=== PATIENT | male | born 1955 | race Caucasian/White ===

== ENCOUNTER 2018-12-28 07:59 | Outpatient (CLI) | payer MEDICARE, MEDICAID ==
[~2018-12-28 07:59] MED LIST: Regadenoson 0.4 MG/5 ML SYRINGE ONE
--- NOTE | 2018-12-28 12:55 | NM ---
NUCLEAR MEDICINE CARDIAC STRESS: HISTORY: Preoperative exam. Obesity. Clearance for weight loss surgery. Shortness of breath. TECHNIQUE: Stress only imaging was performed. The patient was administered 30.70 millicuries of technetium 99m sestamibi intravenously. FINDINGS: Homogeneous distribution of the radiotracer. End-diastolic volume is 125 mL. End-systolic volume is 63 mL. CARDIAC GATING: There is mild global hypokinesis with an EF of 49%. IMPRESSION: 1. Mild global hypokinesis with a 49% ejection fraction. 2. Homogeneous distribution of radiotracer in the left ventricle. POS: KRISTY
== END 2018-12-28 08:00 | disposition home or self-care (01) ==
LOC: NM 07:59
PROVIDERS: ATTEND Internal Medicine Cardiovascular Disease
DX: I50.810 Right heart failure, unspecified (principal); R06.02 Shortness of breath; E66.9 Obesity, unspecified; G47.30 Sleep apnea, unspecified
CPT/HCPCS: 78452; 93017; A9500; J2785

== ENCOUNTER 2019-01-14 19:30 | Outpatient (CLI) | payer MEDICARE, MEDICAID | END 2019-01-14 19:31 | disposition home or self-care (01) | LOC: SLEEPLAB 19:30 | PROVIDERS: ATTEND Internal Medicine Pulmonary Disease | DX: G47.33 Obstructive sleep apnea (adult) (pediatric) (principal); Z51.81 Encounter for therapeutic drug level monitoring; G47.10 Hypersomnia, unspecified; J44.9 Chronic obstructive pulmonary disease, unspecified; I48.2 Chronic atrial fibrillation; I11.0 Hypertensive heart disease with heart failure; I50.9 Heart failure, unspecified; R06.83 Snoring; G47.00 Insomnia, unspecified; I48.91 Unspecified atrial fibrillation; E66.9 Obesity, unspecified; Z79.01 Long term (current) use of anticoagulants; Z68.43 Body mass index [BMI] 50.0-59.9, adult | CPT/HCPCS: 95811 ==

== ENCOUNTER 2019-01-28 09:22 | Day surgery (SDC) | payer MEDICARE, MEDICAID ==
[2019-01-27 12:17] VITALS: BMI 61.0
[2019-01-28] MEDS ORDERED: PROPOFOL 200 MG/20 ML VIAL ONE (10:42)
[2019-01-28] MEDS ORDERED: Lidocaine 1% PF 5 ML VIAL ONE (10:42)
[2019-01-28] MEDS ORDERED: PHENYLEPHRINE-NS 100 MCG/ML 10 ML SYRINGE ONE (10:42)
--- NOTE | 2019-01-28 13:05 | OP ---
DATE OF PROCEDURE: 01/28/2019 SENIOR STAFF SPECIALIZED EMPLOYMENT SURGEON: None. PROCEDURE PERFORMED: Colonoscopy, screening. INDICATION: A 63-year-old man, here for first average risk screening colonoscopy. MEDICATIONS: See Anesthesia record. FINDINGS: After discussion of the risks, benefits, and alternatives of the procedure, informed consent was obtained and witnessed. Pre-endoscopic cardiopulmonary examination was satisfactory. Time-out was performed before sedation was achieved. Sedation was achieved with Anesthesia assistance in the endoscopy unit. Digital rectal exam was performed, which was unremarkable. A Pentax adult colonoscope was inserted into the anus and passed forward to the cecum in the usual fashion. The cecal base was identified by the appendiceal orifice as well as the ileocecal valve. The terminal ileum was not intubated. The colonoscope was then slowly withdrawn in a gradual and circumferential manner with careful examination of the entire colonic mucosa. The quality of the prep was good. The colonic mucosa appeared normal throughout. There were no polyps, mass, or lesions noted. No other mucosal abnormalities. Retroflexion in the rectum demonstrated internal hemorrhoids with hypertrophied anal papillae. The colonoscope was completely withdrawn and the patient allowed to recover. The patient tolerated the procedure well. There were no immediate postprocedure complications. IMPRESSION: 1. Internal hemorrhoids. 2. Otherwise, normal colonoscopy to the cecum. RECOMMENDATION: Repeat colonoscopy for screening in 10 years. Job ID: [id number]
== END 2019-01-28 12:40 | disposition home or self-care (01) ==
LOC: SDC 09:22
PROVIDERS: ATTEND Internal Medicine
PROC: 0DJD8ZZ Inspection of Lower Intestinal Tract, Via Natural or Artificial Opening Endoscopic (ICD-10-PCS; principal; 2019-01-28)
DX: Z12.11 Encounter for screening for malignant neoplasm of colon (principal); K64.8 Other hemorrhoids; K62.89 Other specified diseases of anus and rectum; I11.0 Hypertensive heart disease with heart failure; I50.9 Heart failure, unspecified; I48.91 Unspecified atrial fibrillation; J43.9 Emphysema, unspecified; E66.9 Obesity, unspecified; Z68.44 Body mass index [BMI] 60.0-69.9, adult; Z79.01 Long term (current) use of anticoagulants; Z79.899 Other long term (current) drug therapy

== ENCOUNTER 2020-07-21 08:24 | Outpatient (CLI) | payer MEDICARE, MEDICAID | END 2020-07-21 08:25 | disposition home or self-care (01) | LOC: DTY/OP 08:24 | PROVIDERS: ATTEND Surgery | DX: E66.01 Morbid (severe) obesity due to excess calories (principal) | CPT/HCPCS: 97802 ==

== ENCOUNTER 2020-09-15 16:37 | Inpatient (IN) | payer MEDICARE, MEDICAID ==
[2020-09-15] MEDS ORDERED: Morphine 4 MG/ML VIAL ONE (18:00)
[2020-09-15] MEDS ORDERED: Ondansetron PF 4 MG/2 ML Vial ONE (18:00)
[2020-09-15] MEDS ORDERED: Piperacillin/Tazobactam 4.5 GM VIAL ONE (18:00)
[2020-09-15 18:01] LABS: #Basophils 0.1 thou/uL (0.0-0.2); #Eosinphils 0.3 thou/uL (0.0-0.7); #Lymphocytes 2.8 thou/uL (1.20-3.40); #Monocytes 1.1 thou/uL (0.11-0.59); #Neutrophils 8.6 thou/uL (1.40-6.50); %Basophils 0.7 % (0.0-1.0); %Eosinophils 2.4 % (0.0-10.0); %Lymphocytes 21.9 % (21.0-51.0); %Monocytes 8.6 % (0.0-10.0); %Neutrophils 66.4 % (42.0-75.0); Mean Corpuscular HGB CONC 32.1 g/dL (32.0-36.0); Mean Corpuscular Hemoglobin 28.8 pg (27.0-31.0); Mean Corpuscular Volume 89.8 fL (78.0-98.0); Mean Platelet Volume 7.4 fL (7.4-10.4); Platelet Count 202 thou/uL (130-400); RBC Distribution Width 13.5 % (11.5-14.5); Red Blood Cell (RBC) Count 5.55 mill/uL (4.70-6.10)
[2020-09-15 18:09] LABS: INR-International Normal Ratio 3.6; Prothrombin Time 36.6 sec (12.0-14.7)
[2020-09-15 18:10] LABS: PTT 67.5 sec (22.9-36.1)
--- NOTE | 2020-09-15 18:16 | ULT ---
EXAM: US Gallbladder RUQ CLINICAL HISTORY: Pain.. COMPARISON: None. Correlation: Abdomen and pelvic CT 09/13/2020 FINDINGS: Limited evaluation due to body habitus. Pancreas: Obscured by bowel gas Liver:Limited evaluation of the liver. Increased echogenicity likely due to technical limitations. No evidence of hepatic steatosis on 6 CT Right hepatic lobe: 22.7 cm Gallbladder: Cannot be assessed Cuello's sign:Cannot be assessed Portal Vein: Patent. Appropriate directional flow Bile ducts: Common bile duct cannot be assessed Right kidney: Limited evaluation. Grossly no hydronephrosis. IMPRESSION: Limited evaluation due to body habitus. Hepatomegaly.
[2020-09-15 18:25] LABS: ALT (SGPT) 114 U/L (8-55); AST (SGOT) 67 U/L (5-34); Albumin 4.1 g/dL (3.4-4.8); Alkaline Phosphatase 142 U/L (40-110); Anion Gap 18 mmol/L (10-20); BUN (Urea Nitrogen) 14 mg/dL (8.4-25.7); Bilirubin, Total 3.5 mg/dL (0.2-1.2); CK (CPK) 402 U/L (30-200); Calc. Creatinine Clearance 0 mL/min (70-130); Calcium 8.8 mg/dL (7.8-10.44); Carbon Dioxide 26 mmol/L (23-31); Chloride 98 mmol/L (98-107); Globulin 4.1 g/dL (2.4-3.5); Glucose 84 mg/dL (80-115); Lipase 10 U/L (8-78); Potassium 3.4 mmol/L (3.5-5.1); Protein, Total 8.2 g/dL (5.8-8.1); Sodium 139 mmol/L (136-145)
[2020-09-15] MEDS ORDERED: Metoprolol Tartrate 25 MG TAB ONE (22:39)
--- NOTE | 2020-09-16 01:50 | HP ---
PRIMARY CARE PROVIDER: Erik Sotelo MD CHIEF COMPLAINT: Right upper quadrant abdominal pain. HISTORY OF PRESENT ILLNESS: This is a 65-year-old male, who presents to [facility] and transferred from [place] [facility], where the patient had initially presented on 09/13/2020, for increasing right upper quadrant abdominal pain with associated nausea and vomiting. The patient states these symptoms began somewhat abruptly after eating a large Fajita meal, presenting to the emergency room, undergoing CT of the abdomen and pelvis showing evidence of likely cholecystitis. The patient received supportive management including fentanyl, promethazine, Reglan, intravenous normal saline, Benadryl, and Zofran during the ER evaluation, 09/13/2020. The patient symptomatically improved with the above-mentioned medications, however, was recommended for higher level of care and further evaluation regarding his gallbladder. The patient apparently left against medical advice from the emergency room visit, 09/13/2020. The patient returned on 09/15/2020 with persistent abdominal discomfort and at which point, the patient underwent abdominal ultrasound with equivocal findings. Currently, the patient received IV Zosyn, Zofran, morphine sulfate, and intravenous normal saline, and referred to the Hospitalist Service for admission. PAST MEDICAL HISTORY: 1. Chronic atrial fibrillation, on chronic anticoagulation with Coumadin approximately 10 years. 2. Anxiety/depression. 3. Chronic back pain. 4. Morbid obesity. 5. Osteoarthritis. 6. Congestive heart failure. 7. Hypertension. 8. Obstructive sleep apnea. PAST SURGICAL HISTORY: Reviewed and negative. CURRENT MEDICATIONS: 1. Coumadin 2.5 mg p.o. daily. 2. Lopressor 25 mg p.o. daily. ALLERGIES: NO KNOWN DRUG ALLERGIES. FAMILY HISTORY: Positive for hypertension and coronary artery disease. SOCIAL HISTORY: Resides in [place], [place]. Disabled. Remote cocaine use, none currently. No alcohol. Occasional cigar. REVIEW OF SYSTEMS: CONSTITUTIONAL: Negative for weight loss or gain, ability to conduct usual activities. SKIN: Negative for rash, itching. EYES: Negative for double vision, pain. ENT/MOUTH: Negative for nose bleeding, neck stiffness, pain, tenderness. CARDIOVASCULAR: Negative for palpitations, dyspnea on exertion, orthopnea. RESPIRATORY: Negative for shortness of breath, wheezing, cough, hemoptysis, fever or night sweats. GASTROINTESTINAL: Negative for poor appetite, abdominal pain, heartburn, nausea, vomiting, constipation, or diarrhea. GENITOURINARY: Negative for urgency, frequency, dysuria, nocturia. MUSCULOSKELETAL: Negative for pain, swelling. NEUROLOGIC/PSYCHIATRIC: Negative for anxiety, depression. ALLERGY/IMMUNOLOGIC: Negative for skin rash, bleeding tendency. Otherwise negative except as stated per HPI. PHYSICAL EXAMINATION: VITAL SIGNS: On admission, blood pressure 110/49, pulse 69, respiratory rate 21, temperature 97.4 degrees Fahrenheit, O2 saturation 94% on room air. GENERAL APPEARANCE: This is a 65-year-old male, alert and oriented x3, pleasant, responsive, in no acute distress. HEENT: Pupils are equal, round, reactive to light and accommodation. Extraocular muscles are intact. No scleral icterus. No conjunctival injection. Nares are patent. OP is clear. Teeth in good repair. NECK: Supple. No cervical adenopathy. No thyromegaly. No carotid bruits. No JVD appreciated. Cervical spine with full active and passive range of motion. No meningeal signs noted. CHEST: Lungs are clear to auscultation bilaterally. CARDIOVASCULAR EXAM: S1, S2 with irregular rate and rhythm. No murmur, rub, or gallop appreciated. Heart sounds distant. ABDOMEN: Obese with mild tenderness to palpation in the right upper quadrant. No rebound or guarding noted. Bowel sounds are positive in all 4 quadrants. No palpable mass. EXTREMITIES: Warm and dry with fair turgor. Mild edema bilaterally without asymmetry. Pulses palpable distally at the dorsalis pedis, posterior tibial, and popliteal arteries bilaterally. Capillary refill less than 2 seconds. NEUROLOGIC: Cranial nerves 2 through 12 are grossly intact. No focal or lateralizing signs appreciated. PERTINENT LABORATORY AND X-RAY FINDINGS: Sodium 139, potassium 3.4, chloride 98, CO2 of 26, BUN 14, creatinine 0.83, glucose 84, lactic acid level 1.2, calcium 8.8, total bilirubin 3.5, AST 67, ALT of 114, alkaline phosphatase 142, total CK of 402. Troponin I negative x1. Albumin 4.1, lipase 10. CBC showed a white cell count of 13,000, hemoglobin 16, hematocrit 50, platelet count 202, PT 36.6, INR 3.6, PTT 67.5. CT of the abdomen and pelvis dated 09/14/2020 showed mildly distended gallbladder. No radiopaque gallstones noted. Mild mural thickening. Abdominal ultrasound dated 09/15/2020, showed limited exam due to body habitus. EKG dated 09/15/2020, by my interpretation shows atrial fibrillation with rapid ventricular response with heart rates in the 115s. Nonspecific ST-T wave changes noted. ASSESSMENT AND PLAN: 1. Acute cholecystitis. The patient will be admitted to the telemetry unit. Continue Zosyn 3.375 g IV q.6 hours. Pain control with morphine sulfate 2 mg IV q.4 hours p.r.n. Consult General Surgery Service in the a.m. for any further recommendations. Obtain HIDA scan imaging in the a.m. Repeat LFTs in the a.m. 2. Hyperbilirubinemia with transaminitis secondarily to #1. See #1 above for management. Repeat LFTs and total bilirubin in the a.m. 3. Atrial fibrillation with rapid ventricular response. Mild tachycardia noted on telemetry monitoring. Resume home metoprolol and continue telemetry monitoring. May need additional titration of his rate control therapy on an ongoing basis. 4. Chronic anticoagulation. INR 3.6 currently. Hold Coumadin and repeat INR in the a.m. 5. Prophylaxis. SCDs while in bed. Pepcid 20 mg b.i.d. 6. Code status is full. Surrogate medical decision maker is patient's sister. Job ID: [id number]
[2020-09-16] MEDS ORDERED: Ondansetron ODT 4 MG TAB PO PRN (03:26)
[2020-09-16] MEDS ORDERED: Ondansetron PF 4 MG/2 ML Vial IVP PRN (03:26)
[2020-09-16] MEDS ORDERED: Metoprolol Tartrate 5 MG/5 ML VIAL IVP PRN (03:26)
[2020-09-16] MEDS ORDERED: hydrALAZINE 20 MG/ML VIAL SLOW IVP PRN (03:26)
[2020-09-16] MEDS ORDERED: Piperacillin/Tazobactam 3.375 GM VIAL ONE ×3 (03:33→17:49)
[2020-09-16] MEDS ORDERED: Acetaminophen 500 MG TAB ONE (03:33)
[2020-09-16] MEDS: Sodium Chloride 0.9% 1,000 ML IV SCH ×3 (04:00→21:40)
[2020-09-16] MEDS: Piperacillin/Tazobactam 3.375 GM in Sodium Chloride 0.9% 100 ML IVPB SCH ×4 (04:00→21:41)
[2020-09-16 05:02] LABS: #Eosinphils 0.4 thou/uL (0.0-0.7); #Lymphocytes 2.7 thou/uL (1.20-3.40); #Neutrophils 6.5 thou/uL (1.40-6.50); %Basophils 0.3 % (0.0-1.0); %Eosinophils 3.4 % (0.0-10.0); %Lymphocytes 25.2 % (21.0-51.0); %Monocytes 9.6 % (0.0-10.0); %Neutrophils 61.5 % (42.0-75.0); Hemoglobin 13.8 g/dL (14.0-18.0); Mean Corpuscular Hemoglobin 29.5 pg (27.0-31.0); Mean Corpuscular Volume 92.2 fL (78.0-98.0); Mean Platelet Volume 8.9 fL (7.4-10.4); Platelet Count 177 thou/uL (130-400); RBC Distribution Width 13.7 % (11.5-14.5); Red Blood Cell (RBC) Count 4.67 mill/uL (4.70-6.10); White Blood Cell (WBC) Count 10.5 thou/uL (4.8-10.8)
[2020-09-16 06:15] LABS: INR-International Normal Ratio 5.2
[2020-09-16 06:30] LABS: Albumin 3.2 g/dL (3.4-4.8)
[2020-09-16 06:31] LABS: Chloride 103 mmol/L (98-107); Potassium 3.8 mmol/L (3.5-5.1); Sodium 138 mmol/L (136-145)
[2020-09-16 06:32] LABS: Calcium 7.8 mg/dL (7.8-10.44); Glucose 79 mg/dL (80-115)
[2020-09-16 06:33] LABS: Globulin 3.2 g/dL (2.4-3.5); Protein, Total 6.4 g/dL (5.8-8.1)
[2020-09-16 06:34] LABS: Anion Gap 17 mmol/L (10-20); Bilirubin, Total 3.2 mg/dL (0.2-1.2); Carbon Dioxide 22 mmol/L (23-31)
[2020-09-16 06:35] LABS: Alkaline Phosphatase 111 U/L (40-110)
[2020-09-16 06:36] LABS: Calc. Creatinine Clearance 0 mL/min (70-130)
[2020-09-16 06:37] LABS: AST (SGOT) 51 U/L (5-34); BUN (Urea Nitrogen) 12 mg/dL (8.4-25.7)
[2020-09-16 06:38] LABS: ALT (SGPT) 80 U/L (8-55)
[2020-09-16 06:41] LABS: SARS-CoV-2 MS2 Positive; SARS-CoV-2 N Gene Negative; SARS-CoV-2 S Gene Negative; SARS-CoV-2 by NAA Not Detected (NotDetected); SARS-CoV-2 orf1ab Negative
[2020-09-16] MEDS ORDERED: Phytonadione 10 MG/ML AMP IM SCH (06:45)
[2020-09-16] MEDS ORDERED: Phytonadione 10 MG/ML AMP ONE (06:58)
[2020-09-16] MEDS ORDERED: Metoprolol Tartrate 25 MG TAB PO SCH (09:00)
[2020-09-16] MEDS ORDERED: Famotidine 20 MG TAB ONE (09:15)
[2020-09-16] MEDS ORDERED: Metoprolol Tartrate 25 MG TAB ONE (09:15)
[2020-09-16] MEDS: Famotidine 20 MG TAB PO SCH ×2 (09:20→20:24)
--- NOTE | 2020-09-16 12:20 | CON ---
DATE OF CONSULTATION: CHIEF COMPLAINT: Right upper quadrant abdominal pain. HISTORY OF PRESENT ILLNESS: The patient is a 65-year-old male who 5 days ago developed right upper quadrant pain associated with nausea and vomiting. He went to the emergency room in [place]. They recommended transfer to [place], but he refused due to the fact that he had no one to take care of his dogs and he went home. He says over the past few days he has had some improvement, but he continues to have this pain, now described as about 4/10. He has also had fever to 100 degrees Fahrenheit. PAST MEDICAL HISTORY: Morbid obesity, atrial fibrillation, congestive heart failure, COPD, hypertension. He is on warfarin. He has decreased hearing. He has not had surgery. ALLERGIES: HE HAS NO KNOWN DRUG ALLERGIES. MEDICATIONS: Include 1. Metoprolol. 2. Lisinopril. 3. Warfarin. 4. Symbicort inhaler. SOCIAL HISTORY: He is single, unemployed. Smokes one cigarette a month. No alcohol. FAMILY HISTORY: Cancer and heart disease. PHYSICAL EXAMINATION: VITAL SIGNS: He is afebrile. Pulse 77, O2 saturation 94%. GENERAL: He is a morbidly obese male, lying still in no apparent distress. HEENT: Unremarkable. LUNGS: Clear. HEART: Regular rate and rhythm. ABDOMEN: Soft. He is tender in the right upper quadrant. There are no palpable masses. EXTREMITIES: Unremarkable. LABORATORY DATA: His white count is 10.5, H and H are 13 and 43, platelet count 177. Electrolytes are fine. T-bilirubin is 3.2, AST of 51, ALT of 80. CT scan shows distended gallbladder, no stones, slight wall thickening. Ultrasound, they could not see anything because of his body habitus. ASSESSMENT: Possible cholecystitis, possible choledocholithiasis. PLAN: IV antibiotics. HIDA scan. GI consult. If it appears he needs intervention, would recommend a percutaneous drainage of his gallbladder. We will try and get Cardiology clearance. Job ID: [id number]
[2020-09-16] MEDS ORDERED: Morphine 2 MG/ML VIAL ONE (14:20)
[2020-09-16] MEDS ORDERED: Morphine 2 MG/ML VIAL SLOW IVP SCH (16:15)
--- NOTE | 2020-09-16 16:26 | NM ---
Exam: HIDA scan without ejection fraction HISTORY: Possible acute cholecystitis COMPARISON: None TECHNIQUE: Patient was pretreated with 3.2 mcg of CCK intravenously 30 minutes prior to radiotracer i njection. Patient was administered 4 mm of technetium 99m mebrofenin intravenously FINDINGS: There is uptake of the radiotracer by the hepatic parenchyma. There is localization of radiotracer in the intrahepatic and extrahepatic biliary system. There is passage of radiotracer from the common bile duct into small bowel loops. There is no evidence of radio tracer localization after one hour. P atient was given 2 mg of morphine intravenously. Additional 30 minutes of imaging was performed. No evidence of a trace of localization. IMPRESSION: Scintigraphic evidence of acute cholecystitis. Lack of radiotracer localization gallbladd er after morphine administration.
--- NOTE | 2020-09-16 17:06 | PDOC.HOSPP ---
- Subjective Subjective: pt was seen and examined. states pain is better with Morphine. No fever. - Objective Result Diagrams: 09/16/20 04:45 09/16/20 06:14 Additional Labs: Accuchecks 09/16/20 05:49 POC Glucose 80 Radiology Reviewed by me: Yes EKG Reviewed by me: Yes Hospitalist ROS - Medication Medications: Active Medications Generic Name Dose Route Start Last Admin Trade Name Freq PRN Reason Stop Dose Admin Famotidine 20 mg 09/16/20 09:00 09/16/20 09:20 Famotidine 20 Mg Tab PO 20 mg BID MAHSA Administration Sodium Chloride 1,000 mls @ 100 mls/hr 09/16/20 03:45 09/16/20 04:00 Normal Saline 0.9% IV 1,000 mls .Q10H MAHSA Administration Piperacillin Sod/Tazobactam 100 mls @ 200 mls/hr 09/16/20 04:00 09/16/20 10:00 Sod 3.375 gm/ Sodium Chloride IVPB 100 mls 0400,1000,1600,2200 MAHSA Administration Metoprolol Tartrate 25 mg 09/16/20 09:00 09/16/20 09:20 Metoprolol Tartrate 25 Mg Tab PO 25 mg DAILY MAHSA Administration Sodium Chloride 10 ml 09/16/20 09:00 09/16/20 09:20 Flush - Normal Saline 10 Ml Syringe IVF 10 ml Q12HR MAHSA Administration - Exam General Appearance: NAD Eye: PERRL ENT: normocephalic atraumatic Neck: supple Heart: RRR Respiratory: CTAB Gastrointestinal: soft, non-tender Extremities: no cyanosis, no clubbing, no edema Skin: normal turgor, no lesions Neurological: cranial nerve grossly intact Musculoskeletal: normal tone Psychiatric: normal affect, normal behavior, A&O x 3 Hosp A/P - Plan Patient is a 65 years old gentleman who was transferred from [facility], who presented with right upper quadrant pain. Further workup showed elevated LFTs, and HIDA scan findings consistent with acute cholecystitis. Acute Cholecystitis --cont IV abx. appreciate surgery input Elevated LFT --GI consulted for possible ERCP vs MRCP to r/o CBD stones AFib with RVR --rate better controlled. Cont beta david. Coumadin on hold Supratherapeutic INR --s/p Vit K, rpt INR in AM Morbid Obesity
[2020-09-16] MEDS ORDERED: Morphine 4 MG/ML VIAL SLOW IVP PRN (20:08)
[2020-09-16] MEDS: Metoprolol Tartrate 25 MG TAB PO SCH (21:40)
[2020-09-16] MEDS: Polyethylene Glycol 3350 17 GM Packet PO PRN (21:44)
--- NOTE | 2020-09-16 23:18 | CON ---
DATE OF CONSULTATION: 09/16/2020 CHIEF COMPLAINT: Abdominal pain. HISTORY OF PRESENT ILLNESS: Mr. Romero is a 65-year-old man, who had onset of right upper quadrant aching abdominal pain several days ago. He had a similar episode a couple of months ago. This time, the pain persisted and he went onto the emergency room in [place]. He was advised to be transferred to the acute care hospital, but he had dogs at home that he had to take care of, so he did not follow through with that transfer. He ultimately ended up coming back to the emergency room here at [facility] yesterday as the pain has continued and then intensified. He had an ultrasound performed, which showed increased echogenicity in the liver. The gallbladder and bile ducts could not be assessed due to the patient's body habitus. He is 370 pounds. He did have a nuclear medicine HIDA scan, which showed passage of the radiotracer from the bile duct into the small bowel, but the gallbladder did not fill indicating acute cholecystitis. His liver tests were elevated, so GI was consulted to consider choledocholithiasis. He has atrial fibrillation and is on warfarin and his INR was 5.2 today. He has been started on antibiotics with Zosyn and he is feeling better overall. He has had some mild constipation and had a colonoscopy by Dr. Torres neff in January 2019, which was normal. He is being evaluated for bariatric surgery. He did have a CT scan of the abdomen and pelvis on 09/13/2020, which showed gallbladder distention and some mild mural thickening of the gallbladder. The common bile duct again was not commented on. PAST MEDICAL HISTORY: Atrial fibrillation, hypertension, morbid obesity, osteoarthritis, congestive heart failure, obstructive sleep apnea, back pain, depression. PAST SURGICAL HISTORY: Colonoscopy in January 2019, which was normal. FAMILY HISTORY: Negative for GI malignancies. SOCIAL HISTORY: No alcohol, drugs, or tobacco recently. ALLERGIES: NO KNOWN DRUG ALLERGIES. CURRENT MEDICATIONS: Include: 1. Famotidine. 2. Metoprolol. 3. Dulera inhaler. 4. Zosyn. 5. MiraLAX daily. REVIEW OF SYSTEMS: Negative x10 systems reviewed except as stated in history of present illness. PHYSICAL EXAMINATION: VITAL SIGNS: Temperature is 98.3, pulse is 79, blood pressure 104/55. GENERAL: He is in no acute distress. Alert and oriented x3. HEENT: Eyes have no scleral icterus. Oropharynx is clear without lesions. No cervical or supraclavicular lymphadenopathy. He is morbidly obese. LUNGS: Clear to auscultation bilaterally. HEART: Regular rate and rhythm without murmur. ABDOMEN: Soft. Mild tenderness in right upper quadrant without guarding. Bowel sounds are present. EXTREMITIES: No lower extremity edema. NEUROLOGIC: Cranial nerves are grossly intact. LABORATORY DATA: White blood cell count 10.5, hemoglobin 13.8, platelets 177. INR is 5.2. Creatinine 0.69, bilirubin is 3.2 down from 3.5 yesterday, AST is 51, ALT 80, alkaline phosphatase 111, albumin 3.2. Lipase 10. IMPRESSION: 1. Acute cholecystitis, being treated with antibiotics. Is felt to be a poor surgical candidate by General Surgery. Consideration has been given for cholecystostomy tube. However, given his high INR, this is not an immediate option. 2. Abnormal liver test. His bile ducts could not be assessed by ultrasound that were not commented on by CT. His body habitus will not be expected to allow for MRCP. It would also be quite difficult case for ERCP given his size. For now, he is responding appropriately to antibiotics. We will follow the trend of his liver tests. In the meantime, we will await improvement of his INR. 3. Atrial fibrillation, on warfarin. Supratherapeutic INR. He has received vitamin K. 4. Morbid obesity. RECOMMENDATIONS: 1. Continue Zosyn. 2. We will follow the trend of his LFTs. Job ID: [id number]
[2020-09-17] MEDS: Piperacillin/Tazobactam 3.375 GM in Sodium Chloride 0.9% 100 ML IVPB SCH ×4 (04:10→21:34)
[2020-09-17 04:54] LABS: #Eosinphils 0.4 thou/uL (0.0-0.7); #Monocytes 0.7 thou/uL (0.11-0.59); #Neutrophils 5.4 thou/uL (1.40-6.50); %Basophils 0.3 % (0.0-1.0); %Eosinophils 4.6 % (0.0-10.0); %Lymphocytes 23.1 % (21.0-51.0); %Monocytes 7.9 % (0.0-10.0); %Neutrophils 64.1 % (42.0-75.0); Mean Corpuscular HGB CONC 31.3 g/dL (32.0-36.0); Mean Corpuscular Hemoglobin 28.8 pg (27.0-31.0); Mean Corpuscular Volume 92.2 fL (78.0-98.0); Mean Platelet Volume 7.2 fL (7.4-10.4); Platelet Count 169 thou/uL (130-400); RBC Distribution Width 13.6 % (11.5-14.5); Red Blood Cell (RBC) Count 4.86 mill/uL (4.70-6.10); White Blood Cell (WBC) Count 8.4 thou/uL (4.8-10.8)
[2020-09-17 05:01] LABS: INR-International Normal Ratio 2.7; Prothrombin Time 29.6 sec (12.0-14.7)
[2020-09-17 05:21] LABS: ALT (SGPT) 81 U/L (8-55); AST (SGOT) 56 U/L (5-34); Albumin 3.3 g/dL (3.4-4.8); Alkaline Phosphatase 114 U/L (40-110); Anion Gap 15 mmol/L (10-20); BUN (Urea Nitrogen) 7 mg/dL (8.4-25.7); Bilirubin, Total 2.8 mg/dL (0.2-1.2); Calc. Creatinine Clearance 272 mL/min (70-130); Calcium 7.7 mg/dL (7.8-10.44); Carbon Dioxide 25 mmol/L (23-31); Chloride 102 mmol/L (98-107); Globulin 3.2 g/dL (2.4-3.5); Glucose 97 mg/dL (80-115); Potassium 3.6 mmol/L (3.5-5.1); Protein, Total 6.5 g/dL (5.8-8.1); Sodium 138 mmol/L (136-145)
--- NOTE | 2020-09-17 09:21 | PRG ---
DATE OF SERVICE: 09/17/2020 SUBJECTIVE: The patient reports that he feels a little less pain. He is hungry. No nausea or vomiting. OBJECTIVE: VITAL SIGNS: On examination, his temperature is 98.2, pulse 89, and blood pressure 165/94. GENERAL: He is awake, alert, sitting up, about to eat, I told him not to eat. ABDOMEN: Soft, but tender in the right upper quadrant. LABORATORY DATA AND IMAGING STUDIES: He had a HIDA scan done that shows acute cholecystitis. His white count is down at 8.4, H and H 14 and 44, platelet count 169. His total bilirubin is 2.8, down from 3.2. ASSESSMENT: 1. Acute cholecystitis with multiple medical problems. 2. Bad heart. 3. Chronic obstructive pulmonary disease. 4. Morbid obesity. PLAN: Percutaneous drainage of gallbladder. Job ID: [id number]
[2020-09-17] MEDS: Famotidine 20 MG TAB PO SCH ×2 (09:46→21:37)
[2020-09-17] MEDS: Acetaminophen 500 MG TAB PO PRN (09:46)
[2020-09-17] MEDS: Metoprolol Tartrate 25 MG TAB PO SCH ×2 (09:46→21:38)
[2020-09-17] MEDS: Mometasone 200 MCG/Formoterol 5 MCG 120 PUFF INHALER INH SCH ×2 (10:29→18:40)
[2020-09-17] MEDS: HYDROcodone/Acetaminophen 5/325 mg Tablet PO PRN ×2 (11:32→19:36)
--- NOTE | 2020-09-17 16:15 | PDOC.HOSPP ---
- Subjective Subjective: Patient was seen examined at bedside. Patient reported his abdominal pain is better. Appreciate input from surgery across GI. He appeared to be responding well with IV antibiotic. He is scheduled to have cholecystectomy tube for tomorrow. His INR has trended down. - Objective Vital Signs & Weight: Vital Signs (12 hours) Temp Pulse Resp BP Pulse Ox 09/17/20 15:35 97.3 F L 83 24 H 155/90 H 96 09/17/20 10:54 97.8 F 74 20 118/73 94 L 09/17/20 09:45 95 09/17/20 07:30 98.2 F 89 16 165/94 H 95 Weight Weight 370 lb 3.2 oz I&O: 09/16/20 09/17/20 09/18/20 06:59 06:59 06:59 Intake Total 1380 Output Total 1175 Balance 205 Result Diagrams: 09/17/20 04:27 09/17/20 04:27 Hospitalist ROS - Medication Medications: Active Medications Generic Name Dose Route Start Last Admin Trade Name Freq PRN Reason Stop Dose Admin Acetaminophen 1,000 mg 09/16/20 03:26 09/17/20 09:46 Acetaminophen 500 Mg Tab PO 1,000 mg Q6H PRN Administration Mild Pain (1-3) Hydrocodone Bitart/Acetaminophen 1 tab 09/17/20 11:17 09/17/20 11:32 Hydrocodone/Acetaminophen 5/325 Mg Tablet PO 1 tab Q6H PRN Administration Moderate to Severe Pain (6-10) Famotidine 20 mg 09/16/20 09:00 09/17/20 09:46 Famotidine 20 Mg Tab PO 20 mg BID MAHSA Administration Piperacillin Sod/Tazobactam 100 mls @ 200 mls/hr 09/16/20 04:00 09/17/20 09:47 Sod 3.375 gm/ Sodium Chloride IVPB 100 mls 0400,1000,1600,2200 MAHSA Administration Sodium Chloride 1,000 mls @ 45 mls/hr 09/16/20 20:05 09/16/20 21:40 Normal Saline 0.9% IV 1,000 mls .[id number] MAHSA Administration Metoprolol Tartrate 25 mg 09/16/20 21:00 09/17/20 09:46 Metoprolol Tartrate 25 Mg Tab PO 25 mg BID MAHSA Administration Mometasone Furoate/Formoterol Fumar 2 puff 09/17/20 06:30 09/17/20 10:29 Mometasone 200 Mcg/Formoterol 5 Mcg 120 Puff Inhaler INH 2 puff BID-RT MAHSA Administration Polyethylene Glycol 17 gm 09/16/20 20:08 09/16/20 21:44 Polyethylene Glycol 3350 17 Gm Packet PO 17 gm DAILYPRN PRN Administration Constipation Sodium Chloride 10 ml 09/16/20 09:00 09/17/20 09:47 Flush - Normal Saline 10 Ml Syringe IVF Not Given Q12HR MAHSA - Exam General Appearance: NAD Eye: PERRL ENT: normocephalic atraumatic Neck: supple Heart: RRR Respiratory: CTAB Gastrointestinal: soft Extremities: no cyanosis Skin: normal turgor Neurological: cranial nerve grossly intact Musculoskeletal: normal tone Psychiatric: normal affect, normal behavior, A&O x 3 Hosp A/P - Plan Patient is a 65 years old gentleman who was transferred from [place] ER, who presented with right upper quadrant pain. Further workup showed elevated LFTs, and HIDA scan findings consistent with acute cholecystiti s. Acute Cholecystitis --responding to conservative mgt --cont IV abx. appreciate surgery input --cholectectomy tube placement tomorrow. Elevated LFT - trending down --appreciate GI input -patient is not a candidate for ERCP nor MRCP --We will continue with conservative management AFib with RVR --rate better controlled. Cont beta david. Coumadin on hold Supratherapeutic INR --s/p Vit K, rpt INR in AM Morbid Obesity --Aggressive lifestyle modification is recommended
--- NOTE | 2020-09-17 16:52 | PRG ---
DATE OF SERVICE: 09/17/2020 SUBJECTIVE: Mr. Romero had some flare of the abdominal pain this morning, then it improved later in the day. He is tolerating clear liquid diet well. OBJECTIVE: VITAL SIGNS: Temperature is 97.3, pulse 83, blood pressure 155/90. GENERAL: He is in no acute distress. Alert and oriented x3. LUNGS: Clear to auscultation bilaterally. HEART: Regular rate and rhythm without murmur. ABDOMEN: Soft, obese, tender in the right upper quadrant, but this is mild overall. Bowel sounds are present. EXTREMITIES: 2+ lower extremity edema. LABORATORY DATA: Hemoglobin is 14. INR is down to 2.7 today. Creatinine 0.66, bilirubin 2.8, AST 56, ALT 81, alkaline phosphatase 114. IMPRESSION: 1. Acute cholecystitis. HIDA scan was abnormal. Plan is to proceed with percutaneous transhepatic drainage of the gallbladder. This will likely be done tomorrow as his INR improves further. He is currently doing better with IV antibiotics. 2. Atrial fibrillation with rapid ventricular response with supratherapeutic INR. He has received vitamin K. His INR is trending down. RECOMMENDATIONS: 1. Cholecystostomy tube tomorrow. 2. If his LFTs fail to continue to improve, then cholangiogram could be performed through the cholecystostomy tube after the acute inflammation in the gallbladder improves. Job ID: [id number]
[2020-09-17] MEDS: Polyethylene Glycol 3350 17 GM Packet PO PRN (21:37)
[2020-09-18] MEDS: Sodium Chloride 0.9% 1,000 ML IV SCH (05:12)
[2020-09-18] MEDS: Piperacillin/Tazobactam 3.375 GM in Sodium Chloride 0.9% 100 ML IVPB SCH ×4 (05:12→20:21)
[2020-09-18 05:54] LABS: ALT (SGPT) 94 U/L (8-55); AST (SGOT) 76 U/L (5-34); Albumin 3.3 g/dL (3.4-4.8); Alkaline Phosphatase 129 U/L (40-110); Anion Gap 13 mmol/L (10-20); BUN (Urea Nitrogen) Less than 4 mg/dL (8.4-25.7); Bilirubin, Total 5.3 mg/dL (0.2-1.2); Calc. Creatinine Clearance 285 mL/min (70-130); Carbon Dioxide 27 mmol/L (23-31); Chloride 102 mmol/L (98-107); Globulin 3.3 g/dL (2.4-3.5); Glucose 114 mg/dL (80-115); Potassium 3.8 mmol/L (3.5-5.1); Protein, Total 6.6 g/dL (5.8-8.1); Sodium 138 mmol/L (136-145)
[2020-09-18 06:09] LABS: INR-International Normal Ratio 1.6; Prothrombin Time 18.9 sec (12.0-14.7)
[2020-09-18] MEDS: Mometasone 200 MCG/Formoterol 5 MCG 120 PUFF INHALER INH SCH ×2 (07:49→18:30)
[2020-09-18] MEDS: Famotidine 20 MG TAB PO SCH ×2 (08:24→20:20)
[2020-09-18] MEDS: Metoprolol Tartrate 25 MG TAB PO SCH ×2 (08:24→20:20)
--- NOTE | 2020-09-18 13:45 | PRG ---
DATE OF SERVICE: 09/18/2020 SUBJECTIVE: Mr. Romero is tolerating his clear liquid diet well. His pain is markedly improved. OBJECTIVE: VITAL SIGNS: Temperature 97.5, pulse 86, blood pressure 140/91. GENERAL: He is in no acute distress. Alert and oriented x3. LUNGS: Clear to auscultation bilaterally. HEART: Regular rate and rhythm without murmur. ABDOMEN: Soft. Minimal tenderness in the right upper quadrant now. Bowel sounds are Present. EXTREMITIES: 1+ lower extremity edema. LABORATORY DATA: White blood cell count 8.4, hemoglobin 14.0, platelets 169. INR is done 1.6 today. Bilirubin 5.3, AST 76, ALT 94, alkaline phosphatase 129. IMPRESSION AND PLAN: 1. Acute cholecystitis. His abdominal pain has markedly improved with antibiotics. HIDA scan showed nonfilling of the gallbladder. Plan was for cholecystostomy tube today; however, after review with Radiology, they feel that this would be an extremely difficult procedure given the patient's size and inability to properly fit in the CT scanner. The gallbladder could not be seen by ultrasound. He is an also suboptimal surgical candidate. Given his significant improvement with antibiotics at this point and difficulty being able to perform surgery or radiological intervention, current plan is to continue the antibiotics alone and reassess over the next couple of days. It might be reasonable to repeat a HIDA scan if he continues to improve clinically and if that shows filling in normal emptying of the gallbladder, then cholecystostomy in surgery potentially can be avoided. 2. Cholestatic liver tests. Concern is for choledocholithiasis. His bilirubin is noted to bump back up again today. We will follow the trend of this. If he ends up getting a cholecystostomy tube, then cholangiogram potentially be performed through that. If his bilirubin continues to climb, then he might ultimately end up requiring attempted ERCP. 3. Dr. Macdonald will cover the service starting tomorrow. Job ID: [id number]
--- NOTE | 2020-09-18 15:00 | PRG ---
DATE OF SERVICE: 09/18/2020 SUBJECTIVE: The patient says he is feeling a lot better with the antibiotics. He is really having no abdominal pain at this time. No nausea or vomiting. We attempted to drain the gallbladder percutaneously. Unfortunately, due to his size, the radiologist could not image him with ultrasound could not see the gallbladder. The other issue with the CAT scan is because of his size, there was no room to put a drain in. They could barely squeeze him in the CT scan, so he is doing better. OBJECTIVE: VITAL SIGNS: His temperature is 97.5, pulse 86, and blood pressure 140/91. ABDOMEN: Soft, but morbidly obese, nontender. LABORATORY DATA: White count is 8.5, H and H 14 and 42, platelet count 169. His electrolytes; T bilirubin is 5.3, AST is 76, ALT of 94. ASSESSMENT: Possible choledocholithiasis. Unable to place a cholangiocatheter or drain tube. PLAN: Cardiology consult as he may need surgical intervention. However, they have not seen him yet, so we will reconsult Cardiology. Job ID: [id number]
--- NOTE | 2020-09-18 15:18 | PDOC.HOSPP ---
- Subjective Subjective: Patient was seen examined at bedside. Patient stated that his pain is much improved. However, his LFTs trending up. Unfortunately, patient is high risk for surgical as well as cholecystectomy tube placement. He is currently responding to IV antibiotics. No fever. Surgery and GI are following. - Objective Vital Signs & Weight: Vital Signs (12 hours) Temp Pulse Resp BP BP Pulse Ox 09/18/20 12:00 97.5 F L 86 24 H 140/91 H 94 L 09/18/20 07:37 98 F 89 24 H 165/97 H 94 L 09/18/20 03:32 98.2 F 81 15 124/66 93 L Weight Weight 370 lb 3.2 oz I&O: 09/17/20 09/18/20 09/19/20 06:59 06:59 06:59 Intake Total 1380 1670 930 Output Total 1175 1825 1950 Balance 804 -434 -3518 Result Diagrams: 09/17/20 04:27 09/18/20 04:48 Hospitalist ROS - Medication Medications: Active Medications Generic Name Dose Route Start Last Admin Trade Name Freq PRN Reason Stop Dose Admin Acetaminophen 1,000 mg 09/16/20 03:26 09/17/20 09:46 Acetaminophen 500 Mg Tab PO 1,000 mg Q6H PRN Administration Mild Pain (1-3) Hydrocodone Bitart/Acetaminophen 1 tab 09/17/20 11:17 09/17/20 19:36 Hydrocodone/Acetaminophen 5/325 Mg Tablet PO 1 tab Q6H PRN Administration Moderate to Severe Pain (6-10) Famotidine 20 mg 09/16/20 09:00 09/18/20 08:24 Famotidine 20 Mg Tab PO 20 mg BID MAHSA Administration Piperacillin Sod/Tazobactam 100 mls @ 200 mls/hr 09/16/20 04:00 09/18/20 10:30 Sod 3.375 gm/ Sodium Chloride IVPB 100 mls 0400,1000,1600,2200 MAHSA Administration Metoprolol Tartrate 25 mg 09/16/20 21:00 09/18/20 08:24 Metoprolol Tartrate 25 Mg Tab PO 25 mg BID MAHSA Administration Mometasone Furoate/Formoterol Fumar 2 puff 09/17/20 06:30 09/18/20 07:49 Mometasone 200 Mcg/Formoterol 5 Mcg 120 Puff Inhaler INH 2 puff BID-RT MAHSA Administration Polyethylene Glycol 17 gm 09/16/20 20:08 09/17/20 21:37 Polyethylene Glycol 3350 17 Gm Packet PO 17 gm DAILYPRN PRN Administration Constipation Sodium Chloride 10 ml 09/16/20 09:00 09/18/20 08:24 Flush - Normal Saline 10 Ml Syringe IVF 10 ml Q12HR MAHSA Administration - Exam General Appearance: NAD Eye: PERRL ENT: normocephalic atraumatic Neck: supple Heart: RRR Respiratory: CTAB Gastrointestinal: soft Extremities: no cyanosis Skin: normal turgor Neurological: cranial nerve grossly intact Musculoskeletal: normal tone Psychiatric: normal affect, normal behavior, A&O x 3 Hosp A/P - Plan Patient is a 65 years old gentleman who was transferred from [facility], who presented with right upper quadrant pain. Further workup showed elevated LFTs, and HIDA scan findings consistent with acute cholecy stitis. Acute Cholecystitis --responding to IV abx. Initially plan for cholectectomy tube placement. But cancelled d/t body habitus, may not be feasible. --cont IV abx. --Cardiology consult for risk stratifications has been requested by surgery. --will obtain Echo to assess his LV function. Elevated LFT - trending upward --appreciate GI input - patient is not a candidate for ERCP nor MRCP d/t body habitus --follow CMP. GI is following. AFib with RVR --rate better controlled. Cont beta david. Coumadin on hold Supratherapeutic INR - s/p reversal with Vit K --now subtherapeutic, bridge him with Lovenox sq for possible surgery. Cont to hold Coumadin. Morbid Obesity --Aggressive lifestyle modification is recommended
[2020-09-18] MEDS: HYDROcodone/Acetaminophen 5/325 mg Tablet PO PRN ×2 (15:43→20:22)
--- NOTE | 2020-09-18 17:52 | CON ---
DATE OF CONSULTATION: REASON FOR CONSULTATION: Preop clearance. HISTORY OF PRESENT ILLNESS: Mr. Romero is a very pleasant 65-year-old gentleman, who is a patient Dr. Marlon Corral. He recently presented with cholecystitis. He denies chest pain, pressure, shortness of breath, or other associated symptoms. He does have a previous history of atrial fibrillation on anticoagulation therapy. His last echo dated 11/2019. His LVEF was 45% to 50%. He denies chest pain, pressure, changes in shortness of breath, or other associated symptoms. PAST MEDICAL HISTORY: Morbid obesity, obstructive sleep apnea, atrial fibrillation, mild cardiomyopathy, herniated cervical disk, bipolar disorder, hypertension. HOME MEDICATIONS: Include; 1. Metoprolol. 2. Coumadin. 3. . 4. Lisinopril. 5. Vitamin C. ALLERGIES: NONE. SOCIAL HISTORY: Positive caffeine use. No alcohol or tobacco use. REVIEW OF SYSTEMS: A 10-point review of systems is reviewed and as above, otherwise negative. PHYSICAL EXAMINATION: VITAL SIGNS: Blood pressure 134/78, pulse 65, temperature 98.1. General: The patient is a pleasant gentleman, in no acute distress, appears stated age. Head, Eyes, Ears, Nose and Throat: Sclerae without icterus. Mouth: Moist mucous membranes, normal palate. Neck: No jugular venous distention. Carotid upstroke is brisk. No bruits bilaterally. Lungs: Clear to auscultation. Heart: Irregularly irregular. Abdomen: Soft, nontender, nondistended. Extremities: No edema. PERTINENT LABORATORY DATA: Hemoglobin 14, hematocrit 44.8. Creatinine 0.63. INR 1.6. IMPRESSION: 1. Preop clearance. 2. Chronic atrial fibrillation. 3. Cholecystitis. RECOMMENDATIONS: Mr. Romero did have a noninvasive stress study performed in 2019 that was negative for ischemia. His LVEF was 48%. His most recent echo dated 11/2019 also showed LVEF of 45% to 50%. Given no current symptoms of angina or congestive heart failure, it would be okay from my standpoint to clear for surgery. He is felt to be low risk for complications. I recommend holding Coumadin until INR is less than 1.8. From my standpoint, it would be okay to transfer to Surgical if needed. Job ID: [id number]
[2020-09-18] MEDS: Enoxaparin Sodium 80 MG/0.8 ML SYRINGE SC SCH (20:19)
[2020-09-18] MEDS: Lisinopril 2.5 MG TAB PO SCH (20:20)
[2020-09-19 05:01] LABS: INR-International Normal Ratio 1.1; Prothrombin Time 14.7 sec (12.0-14.7)
[2020-09-19] MEDS: Piperacillin/Tazobactam 3.375 GM in Sodium Chloride 0.9% 100 ML IVPB SCH ×4 (05:52→22:51)
[2020-09-19] MEDS: Mometasone 200 MCG/Formoterol 5 MCG 120 PUFF INHALER INH SCH ×2 (07:36→19:50)
[2020-09-19 07:51] LABS: Albumin 3.5 g/dL (3.4-4.8)
[2020-09-19 07:52] LABS: Chloride 104 mmol/L (98-107); Sodium 140 mmol/L (136-145)
[2020-09-19 07:53] LABS: Calcium 8.3 mg/dL (7.8-10.44); Glucose 121 mg/dL (80-115)
[2020-09-19 07:54] LABS: Globulin 3.5 g/dL (2.4-3.5)
[2020-09-19 07:55] LABS: Anion Gap 14 mmol/L (10-20); Bilirubin, Total 2.9 mg/dL (0.2-1.2); Carbon Dioxide 26 mmol/L (23-31)
[2020-09-19 07:56] LABS: Alkaline Phosphatase 135 U/L (40-110)
[2020-09-19 07:57] LABS: Calc. Creatinine Clearance 268 mL/min (70-130)
[2020-09-19 07:58] LABS: BUN (Urea Nitrogen) Less than 4 mg/dL (8.4-25.7)
[2020-09-19 07:59] LABS: ALT (SGPT) 76 U/L (8-55); AST (SGOT) 52 U/L (5-34)
[2020-09-19] MEDS: Enoxaparin Sodium 80 MG/0.8 ML SYRINGE SC SCH (08:47)
[2020-09-19] MEDS: Metoprolol Tartrate 25 MG TAB PO SCH ×2 (08:47→22:51)
[2020-09-19] MEDS: Famotidine 20 MG TAB PO SCH ×2 (08:47→22:51)
[2020-09-19] MEDS: Acetaminophen 500 MG TAB PO PRN (08:49)
--- NOTE | 2020-09-19 13:06 | PRG ---
DATE OF SERVICE: 09/19/2020 SUBJECTIVE: The patient states he is feeling better, but he is having diarrhea, less pain. OBJECTIVE: VITAL SIGNS: On examination, temperature 97.9, pulse 84, blood pressure 139/75. GENERAL: He looks good. ABDOMEN: Soft and nondistended. Morbidly obese. LABORATORY DATA: His white count is 8.4, H and H 14 and 44, platelet count 169. His electrolytes show his bilirubin has dropped from 5 to 2.9. His LFTs are coming down. ASSESSMENT: Acute cholecystitis, morbidly obese. PLAN: He has been given cardiac clearance. We will plan on laparoscopic cholecystectomy with cholangiogram tomorrow. Job ID: [id number]
--- NOTE | 2020-09-19 14:50 | PRG ---
DATE OF SERVICE: 09/19/2020 SUBJECTIVE: Mr. Romero is feeling quite a bit better. He still has a bit of abdominal discomfort and nausea, but no vomiting. Primary complaint is loose bowel movements. He appears to have responded well to the antibiotics. He did get cardiac clearance for surgery and Dr. Rico's plan is to take him for laparoscopic cholecystectomy with intraoperative cholangiogram tomorrow. OBJECTIVE: VITAL SIGNS: Temperature 97.9, pulse 84, blood pressure 139/75, 95% oxygen saturation on room air. GENERAL: In no acute distress, walking around the room comfortably. HEART: Regular rate and rhythm. LUNGS: Clear to auscultation bilaterally. ABDOMEN: Obese, some tenderness to palpation in the upper abdomen. No guarding or rebound tenderness. EXTREMITIES: No peripheral edema. LABORATORY STUDIES: Sodium 140, potassium 4.0, BUN less than 4, creatinine 0.67, total bilirubin came down from 5.3 to 2.9, alkaline phosphatase is 135, AST came down from 76 to 52, ALT came down from 94 to 76. COVID PCR negative. INR is down to 1.1. ASSESSMENT AND PLAN: 1. Acute cholecystitis. 2. Elevated LFTs. Dr. Rico plans on laparoscopic cholecystectomy with intraoperative cholangiogram tomorrow. Note that, he does have significant LFT elevation with this presentation and common bile duct could not be assessed on ultrasound imaging. I agree with plan for intraoperative cholangiogram. I discussed with the patient that if the cholangiogram demonstrates filling defects in the common bile duct, then he will need to have ERCP as a second procedure. Depending on results of the cholangiogram and the timing of things, this might be performed under the same anesthesia, or might need to occur the following day. The patient expresses understanding. We will follow along for cholangiogram results and interventions as needed. Job ID: [id number]
[2020-09-19 14:54] LABS: #Basophils 0.1 thou/uL (0.0-0.2); #Eosinphils 0.3 thou/uL (0.0-0.7); #Lymphocytes 2.7 thou/uL (1.20-3.40); #Monocytes 0.7 thou/uL (0.11-0.59); #Neutrophils 4.8 thou/uL (1.40-6.50); %Basophils 0.8 % (0.0-1.0); %Eosinophils 3.2 % (0.0-10.0); %Lymphocytes 31.8 % (21.0-51.0); %Monocytes 7.8 % (0.0-10.0); %Neutrophils 56.5 % (42.0-75.0); Hemoglobin 15.3 g/dL (14.0-18.0); Mean Corpuscular HGB CONC 31.2 g/dL (32.0-36.0); Mean Corpuscular Hemoglobin 29.4 pg (27.0-31.0); Mean Platelet Volume 7.5 fL (7.4-10.4); Platelet Count 214 thou/uL (130-400); RBC Distribution Width 14.1 % (11.5-14.5); White Blood Cell (WBC) Count 8.5 thou/uL (4.8-10.8)
[2020-09-19 15:20] LABS: ALT (SGPT) 77 U/L (8-55); AST (SGOT) 50 U/L (5-34); Albumin 3.9 g/dL (3.4-4.8); Alkaline Phosphatase 146 U/L (40-110); Bilirubin, Direct 1.9 mg/dL (0.1-0.3); Bilirubin, Total 2.5 mg/dL (0.2-1.2); Protein, Total 7.9 g/dL (5.8-8.1)
--- NOTE | 2020-09-19 16:18 | PDOC.HOSPP ---
- Subjective Subjective: pt was seen and examined. denies of abd pain. LFT is trending down. surgery plans for lap reva with IOC - Objective Vital Signs & Weight: Vital Signs (12 hours) Temp Pulse Resp BP Pulse Ox 09/19/20 12:14 97.9 F 84 18 139/75 95 09/19/20 08:00 94 L 09/19/20 07:22 97.2 F L 77 18 162/84 H 94 L 09/19/20 04:18 97.4 F L 83 17 150/83 H 90 L Weight Weight 370 lb 3.2 oz I&O: 09/18/20 09/19/20 09/20/20 06:59 06:59 06:59 Intake Total 1670 930 680 Output Total 1825 1950 1200 Balance -155 -1020 -520 Result Diagrams: 09/19/20 14:37 09/19/20 07:25 Radiology Reviewed by me: Yes EKG Reviewed by me: Yes Hospitalist ROS - Medication Medications: Active Medications Generic Name Dose Route Start Last Admin Trade Name Freq PRN Reason Stop Dose Admin Acetaminophen 1,000 mg 09/16/20 03:26 09/19/20 08:49 Acetaminophen 500 Mg Tab PO 1,000 mg Q6H PRN Administration Mild Pain (1-3) Hydrocodone Bitart/Acetaminophen 1 tab 09/17/20 11:17 09/18/20 20:22 Hydrocodone/Acetaminophen 5/325 Mg Tablet PO 1 tab Q6H PRN Administration Moderate to Severe Pain (6-10) Enoxaparin Sodium 80 mg 09/18/20 21:00 09/19/20 08:47 Enoxaparin Sodium 80 Mg/0.8 Ml Syringe SC 80 mg 0900,2100 MAHSA Administration Famotidine 20 mg 09/16/20 09:00 09/19/20 08:47 Famotidine 20 Mg Tab PO 20 mg BID MAHSA Administration Piperacillin Sod/Tazobactam 100 mls @ 200 mls/hr 09/16/20 04:00 09/19/20 08:48 Sod 3.375 gm/ Sodium Chloride IVPB 100 mls 0400,1000,1600,2200 MAHSA Administration Lisinopril 2.5 mg 09/18/20 21:00 09/18/20 20:20 Lisinopril 2.5 Mg Tab PO 2.5 mg HS MAHSA Administration Metoprolol Tartrate 25 mg 09/16/20 21:00 09/19/20 08:47 Metoprolol Tartrate 25 Mg Tab PO 25 mg BID MAHSA Administration Mometasone Furoate/Formoterol Fumar 2 puff 09/17/20 06:30 09/19/20 07:36 Mometasone 200 Mcg/Formoterol 5 Mcg 120 Puff Inhaler INH 2 puff BID-RT MAHSA Administration Polyethylene Glycol 17 gm 09/16/20 20:08 09/17/20 21:37 Polyethylene Glycol 3350 17 Gm Packet PO 17 gm DAILYPRN PRN Administration Constipation Sodium Chloride 10 ml 09/16/20 09:00 09/19/20 08:48 Flush - Normal Saline 10 Ml Syringe IVF 10 ml Q12HR MAHSA Administration - Exam General Appearance: NAD Eye: PERRL ENT: normocephalic atraumatic Neck: supple, symmetric Heart: RRR Respiratory: CTAB, no wheezes Gastrointestinal: soft, non-tender Neurological: cranial nerve grossly intact Musculoskeletal: normal tone Psychiatric: normal affect, normal behavior, A&O x 3 Hosp A/P - Plan Patient is a 65 years old gentleman who was transferred from [facility], who presented with right upper quadrant pain. Further workup showed elevated LFTs, and HIDA scan findings consistent with acute cholecystitis. Acute Cholecystitis --surgery plans for lap reva with IOC --will try to optimize his medical therapy for surgery tomorrow. Hold Lovenox tonight. start Nebs treatments. Encourage IS. Elevated LFT --as above. AFib with RVR --rate better controlled. Cont beta david. Coumadin on hold Supratherapeutic INR - s/p reversal with Vit K --now subtherapeutic, bridge him with Lovenox sq for possible surgery. Cont to hold Coumadin. Morbid Obesity --Aggressive lifestyle modification is recommended
[2020-09-19] MEDS: Lisinopril 2.5 MG TAB PO SCH (22:51)
[2020-09-20] MEDS: Piperacillin/Tazobactam 3.375 GM in Sodium Chloride 0.9% 100 ML IVPB SCH ×3 (04:58→17:45)
[2020-09-20] MEDS: Metoprolol Tartrate 25 MG TAB PO SCH ×2 (06:46→21:21)
[2020-09-20] MEDS: Mometasone 200 MCG/Formoterol 5 MCG 120 PUFF INHALER INH SCH ×2 (07:21→19:38)
[2020-09-20] MEDS: Famotidine 20 MG TAB PO SCH ×2 (08:26→21:21)
[2020-09-20] MEDS ORDERED: Lidocaine 1% PF 5 ML VIAL ONE (09:23)
[2020-09-20] MEDS ORDERED: Ondansetron PF 4 MG/2 ML Vial ONE (09:23)
[2020-09-20] MEDS ORDERED: PROPOFOL 200 MG/20 ML VIAL ONE (09:23)
[2020-09-20] MEDS ORDERED: Glycopyrrolate 0.2 MG/ML 5 ML SYRINGE ONE (09:23)
[2020-09-20] MEDS ORDERED: Ketorolac Tromethamine 30 MG/ML VIAL ONE (09:23)
[2020-09-20] MEDS ORDERED: Rocuronium Bromide 10 MG/ML (10ML VIAL) ONE (09:23)
[2020-09-20] MEDS ORDERED: Dexamethasone 20 MG/5 ML VIAL ONE (09:23)
[2020-09-20] MEDS ORDERED: Iothalamate Meglumine 60% 50 ML VIAL FS ONE (11:35)
[2020-09-20] MEDS ORDERED: Bupivacaine 0.25% HCL 30 ML VIAL ONE (11:35)
[2020-09-20] MEDS ORDERED: Lidocaine 1% w/Epinephrine 1:100K 20 ML VIAL ONE (11:35)
[2020-09-20] MEDS ORDERED: Fentanyl 100 MCG/2 ML VIAL ONE ×3 (11:39→14:23)
[2020-09-20] MEDS ORDERED: Midazolam HCl 2 mg/2 ml Vial ONE (11:39)
--- NOTE | 2020-09-20 12:31 | PDOC.HOSPP ---
- Subjective Subjective: pt is anxious waiting for surgery. no chest pain, abd pain or sob. - Objective Vital Signs & Weight: Vital Signs (12 hours) Temp Pulse Resp BP Pulse Ox 09/20/20 09:45 97.1 F L 72 18 132/84 96 09/20/20 07:44 97.6 F 79 22 H 140/78 95 09/20/20 07:21 67 14 09/20/20 03:00 97.5 F L 67 20 110/75 94 L Weight Weight 370 lb 3.2 oz I&O: 09/19/20 09/20/20 09/21/20 06:59 06:59 06:59 Intake Total 930 680 Output Total 1950 1200 Balance -1020 -520 Result Diagrams: 09/19/20 14:37 09/19/20 07:25 Hospitalist ROS - Medication Medications: Active Medications Generic Name Dose Route Start Last Admin Trade Name Freq PRN Reason Stop Dose Admin Acetaminophen 1,000 mg 09/16/20 03:26 09/19/20 08:49 Acetaminophen 500 Mg Tab PO 1,000 mg Q6H PRN Administration Mild Pain (1-3) Hydrocodone Bitart/Acetaminophen 1 tab 09/17/20 11:17 09/18/20 20:22 Hydrocodone/Acetaminophen 5/325 Mg Tablet PO 1 tab Q6H PRN Administration Moderate to Severe Pain (6-10) Albuterol/Ipratropium 3 ml 09/19/20 19:00 09/20/20 07:21 Ipratropium/Albuterol Sulfate 3 Ml Neb NEB 3 ml [id number] MAHSA Administration Enoxaparin Sodium 80 mg 09/18/20 21:00 09/19/20 08:47 Enoxaparin Sodium 80 Mg/0.8 Ml Syringe SC 80 mg 0900,2100 MAHSA Administration Famotidine 20 mg 09/16/20 09:00 09/20/20 08:26 Famotidine 20 Mg Tab PO 20 mg BID MAHSA Administration Piperacillin Sod/Tazobactam 100 mls @ 200 mls/hr 09/16/20 04:00 09/20/20 08:25 Sod 3.375 gm/ Sodium Chloride IVPB 100 mls 0400,1000,1600,2200 MAHSA Administration Lisinopril 2.5 mg 09/18/20 21:00 09/19/20 22:51 Lisinopril 2.5 Mg Tab PO 2.5 mg HS MAHSA Administration Metoprolol Tartrate 25 mg 09/16/20 21:00 09/20/20 06:46 Metoprolol Tartrate 25 Mg Tab PO 25 mg BID MAHSA Administration Mometasone Furoate/Formoterol Fumar 2 puff 09/17/20 06:30 09/20/20 07:21 Mometasone 200 Mcg/Formoterol 5 Mcg 120 Puff Inhaler INH 2 puff BID-RT MAHSA Administration Polyethylene Glycol 17 gm 09/16/20 20:08 09/17/20 21:37 Polyethylene Glycol 3350 17 Gm Packet PO 17 gm DAILYPRN PRN Administration Constipation Sodium Chloride 10 ml 09/16/20 09:00 09/20/20 08:26 Flush - Normal Saline 10 Ml Syringe IVF 10 ml Q12HR MAHSA Administration Sodium Chloride 10 ml 09/16/20 06:45 09/19/20 16:56 Flush - Normal Saline 10 Ml Syringe IVF 10 ml PRN PRN Administration Saline Flush - Exam General Appearance: NAD Eye: PERRL ENT: normocephalic atraumatic Neck: supple Heart: RRR, no murmur Respiratory: CTAB, no wheezes Gastrointestinal: soft Extremities: no cyanosis Skin: normal turgor Neurological: cranial nerve grossly intact Musculoskeletal: normal tone, normal strength Psychiatric: normal affect, normal behavior, A&O x 3 Hosp A/P - Plan Patient is a 65 years old gentleman who was transferred from [facility], who presented with right upper quadrant pain. Further workup showed elevated LFTs, and HIDA scan findings consistent with acute cholecystitis. Acute Cholecystitis --surgery plans for lap reva with IOC --pt is medically optimized for surgery. cont nebs, encouraged IS Elevated LFT --as above. trending down. AFib with RVR --rate better controlled. Cont beta david. Coumadin on hold Supratherapeutic INR - s/p reversal with Vit K --now subtherapeutic, bridge him with Lovenox sq for possible surgery. Currently on hold. Will resume AC when OK with surgery Morbid Obesity with BMI 53 --Aggressive lifestyle modification is recommended
--- NOTE | 2020-09-20 13:08 | RAD ---
Intraoperative cholangiogram: 09/20/2020 HISTORY: Intraoperative cholangiogram FINDINGS: 2 images from an intraoperative cholangiogram are provided. There is contrast media within the duodenum, the common bile duct, and nondilated intrahepatic ducts. There is a questionable filling defect within the mid aspect of the common bile duct on image 2 and image 3. This could repre sent a stone within the common bile duct. IMPRESSION: Questionable small filling defect within the mid aspect of the common bile duct. Correlat ion with real-time imaging is essential. A small stone within the common bile duct cannot be excluded.
[2020-09-20] MEDS ORDERED: Ondansetron PF 4 MG/2 ML Vial IVP PRN (13:33)
[2020-09-20] MEDS ORDERED: Calcium Carbonate 500 MG ChewTAB PO PRN (13:33)
[2020-09-20] MEDS ORDERED: Dextrose 5% in Water 1,000 ML IV PRN (13:33)
[2020-09-20] MEDS ORDERED: hydrALAZINE 20 MG/ML VIAL SLOW IVP PRN (13:33)
[2020-09-20] MEDS ORDERED: Dextrose 50% Abboject 50 ML SYRINGE SLOW IVP PRN (13:33)
[2020-09-20] MEDS ORDERED: Promethazine HCl 25 MG/ML VIAL IM PRN ×2 (13:33→13:44)
[2020-09-20] MEDS ORDERED: Ondansetron HCl/PF 4 MG/2 ML Vial IVP PRN (13:44)
[2020-09-20] MEDS ORDERED: Promethazine HCl 25 MG/ML VIAL SLOW IVP PRN (13:44)
[2020-09-20] MEDS ORDERED: PACU-Morphine 4MG/ML VIAL SLOW IVP PRN (13:44)
--- NOTE | 2020-09-20 14:08 | OP ---
DATE OF PROCEDURE: 09/20/2020 PREOPERATIVE DIAGNOSIS: Acute cholecystitis. PROCEDURE PERFORMED: Laparoscopic cholecystectomy with intraoperative cholangiogram. INDICATIONS: A 65-year-old male who is morbidly obese who is too large to get an ultrasound. CT showed acute reva. He did have elevated liver functions. A bilirubin up to like 5, but it came back down. FINDINGS: He had a very inflamed infected gallbladder. He had a cholangiogram that showed the common duct was not very dilated. There was free flow in the duodenum, but there was a questionable filling defect in the mid common bile duct. DESCRIPTION OF PROCEDURE: After informed consent was obtained, the patient was taken to the operating room and given general endotracheal anesthesia, placed in supine position. Abdomen was prepped and draped in usual fashion. Local anesthesia was infiltrated subcutaneously and deep. An upper midline incision was performed. Subcutaneous divided sharply. The fascia was grasped, then 2 stay sutures of 0 Vicryl placed through each side of midline. Midline incised. Digital palpation revealed no local adhesions. A blunt 12 mm trocar inserted. Pneumoperitoneum was created to a pressure of 15 mmHg. A 0-degree laparoscope inserted. Under direct vision, three 5 mm ports were placed subcostally. The gallbladder was very distended and inflamed. It was aspirated and 60 mL of thick fluid removed, sent for culture. The gallbladder grasped, advanced superiorly, and dissection was performed distally to expose the cystic duct and artery. A clip was placed at the base of the gallbladder. Cystic duct was incised and a cholangiocatheter inserted. Intraoperative cholangiogram performed showing nondilated common bile duct, free flow in the duodenum, very questionable tiny filling defect. The duct was triply ligated with hemoclips and divided. The artery was dissected out, triply ligated with hemoclips and divided. The gallbladder was removed from its fossa utilizing electrocautery, removed from the abdomen in an endosac through the umbilical port. Hemostasis assured with electrocautery. The wound was irrigated. Irrigation fluid was removed. A drain was placed and brought out through the lateral-most incision. The fascia was closed with interrupted 0 Vicryl suture. The skin was closed with interrupted 4-0 Rapide. Steri-Strips applied. Tolerated well. Job ID: [id number]
[2020-09-20] MEDS: Lactated Ringer's 1,000 ML IV SCH (15:09)
[2020-09-20] MEDS: Ketorolac Tromethamine 30 MG/ML VIAL IVP SCH (17:45)
[2020-09-20] MEDS ORDERED: Piperacillin/Tazobactam 3.375 GM in Sodium Chloride 0.9% 100 ML IVPB SCH (18:00)
--- NOTE | 2020-09-20 19:05 | PRG ---
DATE OF SERVICE: 09/20/2020 SUBJECTIVE: Mr. Romero had his laparoscopic cholecystectomy today. Dr. Rico called me and told me that the IOC showed good drainage in the common duct into the duodenum. At first, he felt there may be a small filling defect, but then asked to review the films. Unfortunately, I have not been able to do that because the [employer] and the computer storage system for films is down. The patient reports he feels well. He does have a FRANCINE drain in and asked questions about that and I explained to him what it is and why it is there. He states he feels well without pain. OBJECTIVE: VITAL SIGNS: Temperature 97, pulse 77, blood pressure 120/83. ABDOMEN: Protuberant. He is overweight. He has scars consistent with laparoscopic cholecystectomy today. LABORATORY DATA: None done today. Yesterday, his bilirubin was dropping, it is 2.5, having been 5.3 the day before. ASSESSMENT: Status post laparoscopic cholecystectomy. LFTs elevated on admission is coming down yesterday, not done today. Reportedly his IOC may be showed a filling defect, but there was no obstruction and good drainage of contrast. RECOMMENDATIONS: If followup liver function tests, if not got normal, he made any need an ERCP. I have placed orders for LFTs to be done tomorrow morning. Job ID: [id number]
[2020-09-20 19:26] LABS: Hemoglobin 11.6 g/dL (14.0-18.0)
[2020-09-20] MEDS ORDERED: Sodium Chloride 0.9% 1,000 ML IV SCH (21:00)
[2020-09-20] MEDS: Lisinopril 2.5 MG TAB PO SCH (21:21)
[2020-09-20] MEDS: Famotidine/PF 20 mg/2ml Vial SLOW IVP SCH (21:59)
[2020-09-20 23:12] LABS: Hemoglobin 10.7 g/dL (14.0-18.0)
[2020-09-21] MEDS: Piperacillin/Tazobactam 3.375 GM in Sodium Chloride 0.9% 100 ML IVPB SCH ×5 (00:09→21:01)
[2020-09-21] MEDS: Ketorolac Tromethamine 30 MG/ML VIAL IVP SCH ×6 (00:10→23:17)
[2020-09-21] MEDS ORDERED: HYDROmorphone 0.5 MG/0.5 ML SYRINGE ONE (00:16)
[2020-09-21] MEDS ORDERED: Fentanyl 100 MCG/2 ML VIAL ONE (00:16)
[2020-09-21] MEDS ORDERED: Sodium Bicarb 50 MEQ/50 ML Abboject 8.4% SYRINGE ONE (00:17)
[2020-09-21] MEDS ORDERED: Calcium Chloride 1 GM/10 ML Abboject SYRINGE ONE (00:17)
[2020-09-21] MEDS ORDERED: Norepinephrine 4 MG/4 ML VIAL ONE (00:17)
[2020-09-21] MEDS ORDERED: Phenylephrine 10 MG/ML VIAL ONE ×2 (00:17→00:52)
[2020-09-21] MEDS: Morphine 4 MG/ML VIAL SLOW IVP PRN (02:52)
[2020-09-21] MEDS: Lactated Ringer's 1,000 ML IV SCH ×4 (03:14→23:17)
[2020-09-21 04:09] LABS: #Eosinphils 0.1 thou/uL (0.0-0.7); #Lymphocytes 1.4 thou/uL (1.20-3.40); #Monocytes 0.4 thou/uL (0.11-0.59); #Neutrophils 15.5 thou/uL (1.40-6.50); %Eosinophils 0.3 % (0.0-10.0); %Lymphocytes 7.9 % (21.0-51.0); %Monocytes 2.4 % (0.0-10.0); %Neutrophils 89.3 % (42.0-75.0); Hemoglobin 12.8 g/dL (14.0-18.0); Mean Corpuscular HGB CONC 33.6 g/dL (32.0-36.0); Mean Corpuscular Hemoglobin 31.4 pg (27.0-31.0); Mean Corpuscular Volume 93.4 fL (78.0-98.0); Mean Platelet Volume 7.5 fL (7.4-10.4); Platelet Count 214 thou/uL (130-400); RBC Distribution Width 13.5 % (11.5-14.5); White Blood Cell (WBC) Count 17.4 thou/uL (4.8-10.8)
--- NOTE | 2020-09-21 04:24 | OP ---
DATE OF PROCEDURE: 09/21/2020 PREOPERATIVE DIAGNOSIS: Postoperative hemorrhage. PROCEDURE PERFORMED: Exploratory laparotomy. INDICATIONS: Patient is a 65-year-old male, morbidly obese, multiple medical problems, who had a lap reva for acute cholecystitis earlier today, was noted to have some bleeding and then became hypotensive, required 4 units of packed cells and 2 units of FFP. FINDINGS: Quite a bit of clotted blood within the abdominal cavity. There was a small venous branch that seemed to be the probable culprit. DESCRIPTION OF PROCEDURE: After informed consent was obtained, patient was taken to the operating room and given general endotracheal anesthesia, placed in the supine position. Abdomen was prepped and draped in usual fashion. A subcostal incision was performed sharply to involve all 3 of the previous laparoscopic port sites. Subcu divided sharply. The fascia was incised. The muscle was incised with electrocautery. The posterior fascia was grasped and incised with a 10 blade, then opened. The abdomen was packed with dry laparotomy pads, then the Bookwalter retractor was set up. Retraction was achieved. The liver bed was inspected. I did not initially see any active bleeding and there was quite a bit of clot along the gutter and down into the pelvis, so that was removed. [place] the only other incision was the upper midline incision, which had dehisced. The initial sutures that were placed had broken through and so I was not sure if perhaps that was the source of bleeding, so we then enlarged that opening in the midline and re-sutured the fascia with interrupted #1 PDS [id number], then looked back up at the liver area and I could find that there was some venous blood coming from a side branch of the vessel, hemoclip was placed on this. The abdomen was thoroughly irrigated with saline. Then, Miguel powder was applied to the liver bed. Hemostasis was assured. The posterior fascia closed with a running #1 PDS. The anterior fascia closed with a running #1 PDS. The subcu irrigated and skin closed with skin nae. The patient tolerated the procedure well, transferred to ICU in serious, but stable condition. Job ID: [id number]
[2020-09-21] MEDS: Diltiazem HCl 125 MG, Admixture Fee 1 EACH in Sodium Chloride 0.9% 100 ML IVPB SCH (04:29)
[2020-09-21 04:49] LABS: ALT (SGPT) 58 U/L (8-55); AST (SGOT) 65 U/L (5-34); Albumin 3.4 g/dL (3.4-4.8); Alkaline Phosphatase 104 U/L (40-110); Anion Gap 12 mmol/L (10-20); BUN (Urea Nitrogen) 11 mg/dL (8.4-25.7); Bilirubin, Total 2.1 mg/dL (0.2-1.2); Calc. Creatinine Clearance 258 mL/min (70-130); Calcium 8.1 mg/dL (7.8-10.44); Carbon Dioxide 28 mmol/L (23-31); Chloride 101 mmol/L (98-107); Globulin 3.2 g/dL (2.4-3.5); Glucose 166 mg/dL (80-115); Lipase 18 U/L (8-78); Protein, Total 6.6 g/dL (5.8-8.1); Sodium 136 mmol/L (136-145)
[2020-09-21] MEDS: Morphine 2 MG/ML VIAL SLOW IVP PRN ×3 (05:28→17:39)
[2020-09-21] MEDS: Mag-Al 1200 mg/1200 mg/30 ML UDCUP PO PRN ×2 (05:44→23:17)
--- NOTE | 2020-09-21 08:17 | CON ---
DATE OF CONSULTATION: 09/21/2020 REASON FOR CONSULTATION: ICU management. HISTORY OF PRESENT ILLNESS: Mr. Romero is a 65-year-old male, who was put in the ICU last night after exploratory laparotomy that found peritoneal bleeding. He had undergone laparoscopic cholecystectomy earlier in the day yesterday. The patient says he now feels fantastic and has no acute complaints. He is on a Cardizem drip for control of chronic atrial fibrillation. PAST MEDICAL HISTORY: 1. Morbid obesity. 2. Chronic atrial fibrillation, on Coumadin. 3. Anxiety. 4. Depression. 5. Osteoarthritis. 6. Congestive heart failure-diastolic. 7. Hypertension. 8. ROBERT. PAST SURGICAL HISTORY: Laparoscopic cholecystectomy and diagnostic laparotomy. MEDICATIONS: Prior to admission 1. Coumadin 2.5 mg daily. 2. Lopressor 25 mg daily. ALLERGIES: NONE. FAMILY MEDICAL HISTORY: Remarkable for hypertension, coronary artery disease. SOCIAL HISTORY: He is a retired cook. Has a remote history of cocaine use. Occasionally smokes a cigar. Lives in [place], [place]. REVIEW OF SYSTEMS: Has some shortness of breath. Mild abdominal pain. No fever, chills, nausea, vomiting, hematemesis. No hematochezia, hematuria, or dysuria. PHYSICAL EXAMINATION: VITAL SIGNS: Temperature 97.9, pulse 133, blood pressure 128/96, O2 saturation 94% on 3 L. GENERAL: He is awake, alert, texting on his phone, appearing in no distress. HEENT: Unremarkable. NECK: No adenopathy or JVD. CARDIAC: S1 and S2, irregularly irregular, slightly tachycardic. LUNGS: Clear. ABDOMEN: Large midline surgical scar. Otherwise abdomen soft and nontender. EXTREMITIES: No clubbing, cyanosis, or edema. LABORATORY DATA: White blood cell count 17.4, hemoglobin 12.8, hematocrit 38.3, and platelet count 214. Sodium 136, potassium 5, chloride 101, CO2 of 28, BUN 11, creatinine 0.7, and glucose 166. Echocardiogram demonstrates EF of 55% to 60%. ASSESSMENT: 1. Status post laparotomy with finding of a small bleeder. He had evacuation of blood and now feels much better. 2. Chronic atrial fibrillation. 3. Morbid obesity. PLAN: The patient's heart rate will be controlled with Cardizem until such time he is able to restart his oral medications. Cardiology is following him for his atrial fibrillation. His pulmonary status is quite stable at this time. We will follow with you. Job ID: [id number]
[2020-09-21] MEDS ORDERED: Enoxaparin Sodium 40 MG/0.4 ML SYRINGE SC SCH (09:00)
[2020-09-21] MEDS: Metoprolol Tartrate 25 MG TAB PO SCH ×2 (09:47→20:54)
[2020-09-21] MEDS: Famotidine/PF 20 mg/2ml Vial SLOW IVP SCH ×2 (09:48→20:54)
[2020-09-21] MEDS: HYDROcodone/Acetaminophen 10/325 mg Tablet PO PRN ×2 (09:49→20:55)
[2020-09-21] MEDS: Famotidine 20 MG TAB PO SCH (09:52)
[2020-09-21] MEDS: Mometasone 200 MCG/Formoterol 5 MCG 120 PUFF INHALER INH SCH ×2 (11:00→18:41)
[2020-09-21] MEDS ORDERED: PROPOFOL 200 MG/20 ML VIAL ONE (11:29)
[2020-09-21] MEDS ORDERED: Glycopyrrolate 0.2 MG/ML 5 ML SYRINGE ONE (11:29)
[2020-09-21] MEDS ORDERED: Dexamethasone 20 MG/5 ML VIAL ONE (11:29)
[2020-09-21] MEDS ORDERED: Rocuronium Bromide 10 MG/ML (10ML VIAL) ONE (11:29)
[2020-09-21] MEDS ORDERED: PHENYLEPHRINE-NS 100 MCG/ML 10 ML SYRINGE ONE (11:29)
[2020-09-21] MEDS ORDERED: Ondansetron PF 4 MG/2 ML Vial ONE (11:29)
[2020-09-21] MEDS ORDERED: Lidocaine 1% PF 5 ML VIAL ONE (11:29)
--- NOTE | 2020-09-21 12:29 | PRG ---
DATE OF SERVICE: 09/21/2020 SUBJECTIVE: The patient states that his pain is controlled. He is actually hungry and would like to have some to eat. OBJECTIVE: VITAL SIGNS: He has been in atrial fibrillation at a heart rate about 110, but blood pressure is stable. His wounds are dry. His H and H are stable. ASSESSMENT: Status post return to OR for bleeding post cholecystectomy. The patient is doing better now. PLAN: We will get Cardiology to assess his atrial fibrillation. We will start him on a clear liquid diet. Job ID: [id number]
[2020-09-21 12:52] LABS: Hemoglobin 12.3 g/dL (14.0-18.0)
--- NOTE | 2020-09-21 16:25 | PDOC.HOSPP ---
- Subjective Subjective: The patient was status post lap reva yesterday, he was tolerated procedure well; however, post procedure, he was noticed noted hypotensive, and drop in Hb. He was back to the OR for ex lap, and found a small bleeding venous branch. He required 2 unit of packed RBC, and 2 unit of FFP. His hemoglobin was dipped down to 10.7, however it remained above 2 hours after repeat. Pt was seen and examined. states he is feeling well this morning. - Objective Vital Signs & Weight: Vital Signs (12 hours) Temp Pulse Resp Pulse Ox 09/21/20 12:00 98 F 09/21/20 09:04 97 09/21/20 08:59 108 H 29 H 97 09/21/20 07:49 96 09/21/20 07:00 97.9 F Weight Weight 376 lb 15.847 oz Most Recent Monitor Data Heart Rate from ECG 104 NIBP 121/87 NIBP BP-Mean 98 Respiration from ECG 20 SpO2 93 I&O: 09/20/20 09/21/20 09/22/20 06:59 06:59 06:59 Intake Total 680 3368 360 Output Total 1200 1495 720 Balance -520 1873 -360 Result Diagrams: 09/21/20 12:33 09/21/20 03:44 Radiology Reviewed by me: Yes EKG Reviewed by me: Yes Hospitalist ROS - Medication Medications: Active Medications Generic Name Dose Route Start Last Admin Trade Name Freq PRN Reason Stop Dose Admin Acetaminophen 1,000 mg 09/16/20 03:26 09/19/20 08:49 Acetaminophen 500 Mg Tab PO 1,000 mg Q6H PRN Administration Mild Pain (1-3) Hydrocodone Bitart/Acetaminophen 2 tab 09/20/20 13:33 09/21/20 09:49 Hydrocodone/Acetaminophen 10/325 Mg Tablet PO 2 tab Q6H PRN Administration Severe Pain (7-10) Al Hydroxide/Mg Hydroxide 15 ml 09/20/20 13:33 09/21/20 05:44 Mag-Al 1200 Mg/1200 Mg/30 Ml Udcup PO 15 ml Q6H PRN Administration Dyspepsia Albuterol/Ipratropium 3 ml 09/19/20 19:00 09/21/20 16:10 Ipratropium/Albuterol Sulfate 3 Ml Neb NEB Not Given [id number] MAHSA Famotidine 20 mg 09/20/20 21:00 09/21/20 09:48 Famotidine/Pf 20 Mg/2ml Vial SLOW IVP 20 mg Q12HR MAHSA Administration Piperacillin Sod/Tazobactam 100 mls @ 200 mls/hr 09/16/20 04:00 09/21/20 15:5 8 Sod 3.375 gm/ Sodium Chloride IVPB 100 mls 0400,1000,1600,2200 MAHSA Administration Lactated Ringer's 1,000 mls @ 120 mls/hr 09/20/20 13:45 09/21/20 15:58 Lactated Ringer's IV Not Given .Q8H20M MAHSA Diltiazem HCl 125 mg/ 125 mls @ 5 mls/hr 09/21/20 04:30 09/21/20 04:29 Miscellaneous Medication 1 IVPB 125 mls each/ Sodium Chloride INF MAHSA Administration Protocol Ketorolac Tromethamine 15 mg 09/20/20 18:00 09/21/20 12:59 Ketorolac Tromethamine 30 Mg/Ml Vial IVP 09/25/20 18:01 15 mg Q6HR MAHSA Administration Lisinopril 2.5 mg 09/18/20 21:00 09/20/20 21:21 Lisinopril 2.5 Mg Tab PO Not Given [facility] Metoprolol Tartrate 25 mg 09/16/20 21:00 09/21/20 09:47 Metoprolol Tartrate 25 Mg Tab PO 25 mg BID MAHSA Administration Mometasone Furoate/Formoterol Fumar 2 puff 09/17/20 06:30 09/20/20 19:38 Mometasone 200 Mcg/Formoterol 5 Mcg 120 Puff Inhaler INH Not Given BID-RT [facility] Morphine Sulfate 2 mg 09/20/20 13:33 09/21/20 13:36 Morphine 2 Mg/Ml Vial SLOW IVP 2 mg Q2H PRN Administration Mild Pain (1-3) Morphine Sulfate 4 mg 09/20/20 13:33 09/21/20 02:52 Morphine 4 Mg/Ml Vial SLOW IVP 4 mg Q2H PRN Administration Moderate Pain (4-6) Ondansetron HCl 4 mg 09/20/20 13:33 09/20/20 21:59 Ondansetron Pf 4 Mg/2 Ml Vial IVP 4 mg Q6H PRN Administration Nausea/Vomiting Polyethylene Glycol 17 gm 09/16/20 20:08 09/17/20 21:37 Polyethylene Glycol 3350 17 Gm Packet PO 17 gm DAILYPRN PRN Administration Constipation Sodium Chloride 10 ml 09/16/20 09:00 09/21/20 09:47 Flush - Normal Saline 10 Ml Syringe IVF 10 ml Q12HR MAHSA Administration Sodium Chloride 10 ml 09/16/20 06:45 09/19/20 16:56 Flush - Normal Saline 10 Ml Syringe IVF 10 ml PRN PRN Administration Saline Flush - Exam General Appearance: NAD Eye: PERRL ENT: normocephalic atraumatic Neck: supple Heart: RRR Respiratory: CTAB Gastrointestinal: soft Extremities: no cyanosis Skin: normal turgor Neurological: cranial nerve grossly intact Psychiatric: normal affect, normal behavior, A&O x 3 Hosp A/P - Plan Patient is a 65 years old gentleman who was transferred from [facility], who presented with right upper quadrant pain. Further workup showed elevated LFTs, and HIDA scan findings consistent with acute cholecystitis. Acute Cholecystitis --s/p lap reva, complicated with post op bleed, now s/p ex lap --cont routine post op mgt as per ortho Acute blood loss anemia --s/p 2U PRBC, Hb stable Elevated LFT --as above. trending down. Follow [facility] AFib with RVR --rate better controlled. Cont beta david. Coumadin on hold d/t procedure --cardiology was consulted Supratherapeutic INR - s/p reversal with Vit K --resume AC when OK with surgery Morbid Obesity with BMI 53 --Aggressive lifestyle modification is recommended
[2020-09-21] MEDS: Lisinopril 2.5 MG TAB PO SCH (20:54)
--- NOTE | 2020-09-21 22:17 | PRG ---
DATE OF SERVICE: 09/21/2020 REASON FOR CONSULTATION: Elevated LFTs, possible choledocholithiasis. SUBJECTIVE: Today, the patient states that he did well, was able to tolerate a clear liquid diet without any difficulty. He does continue to have right-sided abdominal pain, but is to be expected with his recent surgical instrumentation. Otherwise, the patient denies any nausea, vomiting, fevers, chills, hematemesis, melena, or hematochezia. OBJECTIVE: VITAL SIGNS: Temperature 98.2, pulse 118, blood pressure 127/84, respiratory rate 19, and saturating 98% on room air. GENERAL: The patient was lying in bed, in no acute distress. Alert and oriented x4. CARDIOVASCULAR: Regular rate and rhythm. RESPIRATORY: Clear to auscultation bilaterally, although difficult to assess due to the patient's body habitus. ABDOMEN: Normoactive bowel sounds. Soft, nondistended. Significant tenderness to palpation in the right upper quadrant and periumbilical regions. EXTREMITIES: No cyanosis, clubbing, or edema. LABORATORY DATA: CBC with a white blood cell count of 17.4, hemoglobin 12.8, hematocrit 38.2, platelets 214. Chemistry with a sodium of 136, potassium 5, chloride 101, CO2 of 28, BUN 11, creatinine 0.71, glucose 166. AST 65, ALT 58, alkaline phosphatase 104, total bilirubin 2.1, and lipase 18. IMAGING DATA: The patient underwent laparoscopic cholecystectomy on September 20, 2020, with intraoperative cholangiogram at that time showing contrast flowing from the common bile duct and nondilated intrahepatic ducts into the duodenum; however, there was a questionable filling defect within the mid aspect of the common bile duct that could represent a stone within the common bile duct. ASSESSMENT AND PLAN: The patient is a 65-year-old male with past medical history of atrial fibrillation, hypertension, osteoarthritis, congestive heart failure, obstructive sleep apnea, chronic lower back pain, depression, and morbid obesity, presenting with acute cholecystitis complicated by bleeding in the post procedure. Requiring repeat laparoscopy in addition to elevated LFTs concerning for choledocholithiasis. Elevated LFTs. The patient initially presented with right upper quadrant abdominal pain with imaging (HIDA scan) showing incomplete filling of the gallbladder indicative of acute cholecystitis. Given the patient's elevated INR due to being placed on chronic anticoagulation as well as his body habitus, he was deemed to be a significantly increased risk for any procedure, surgical, or endoscopic. However, with worsening of the status, he was subsequently taken for laparoscopic cholecystectomy on September 20, 2020, with the procedure having a postprocedure complication due to a bleeding vessel that was subsequently intervened upon with repeat evaluation/laparoscopy and no further episodes of or drop in his H and H since then. He has also been having a decrease in his LFTs over the course of this admission, especially within the last 24 to 48 hours and although, there may be a possible filling defect seen on the intraoperative cholangiogram. His current laboratory bowels do not support the presence of choledocholithiasis. RECOMMENDATIONS: 1. We would continue to trend the patient's LFTs daily and if increasing may need further evaluation with either imaging/MRCP or ERCP. 2. Pain control per primary team. 3. Advance diet as tolerated. 4. There are no plans for ERCP at the current time unless his LFT start to rise. We will continue to follow peripherally. Please call with any questions. Job ID: [id number] [facility] CENTERMervat
[2020-09-22] MEDS: Piperacillin/Tazobactam 3.375 GM in Sodium Chloride 0.9% 100 ML IVPB SCH ×4 (03:26→21:35)
[2020-09-22] MEDS: Diltiazem HCl 125 MG, Admixture Fee 1 EACH in Sodium Chloride 0.9% 100 ML IVPB SCH (03:28)
[2020-09-22 03:54] LABS: #Eosinphils 0.1 thou/uL (0.0-0.7); #Monocytes 1.5 thou/uL (0.11-0.59); #Neutrophils 14.4 thou/uL (1.40-6.50); %Basophils 0.2 % (0.0-1.0); %Eosinophils 0.3 % (0.0-10.0); %Lymphocytes 15.6 % (21.0-51.0); %Monocytes 7.9 % (0.0-10.0); Mean Corpuscular Hemoglobin 30.8 pg (27.0-31.0); Mean Corpuscular Volume 93.3 fL (78.0-98.0); Mean Platelet Volume 7.2 fL (7.4-10.4); Platelet Count 225 thou/uL (130-400); Red Blood Cell (RBC) Count 3.24 mill/uL (4.70-6.10)
[2020-09-22 04:19] LABS: ALT (SGPT) 47 U/L (8-55); AST (SGOT) 54 U/L (5-34); Alkaline Phosphatase 81 U/L (40-110); Anion Gap 15 mmol/L (10-20); BUN (Urea Nitrogen) 11 mg/dL (8.4-25.7); Bilirubin, Total 1.1 mg/dL (0.2-1.2); Calc. Creatinine Clearance 286 mL/min (70-130); Calcium 7.4 mg/dL (7.8-10.44); Carbon Dioxide 23 mmol/L (23-31); Chloride 100 mmol/L (98-107); Globulin 2.9 g/dL (2.4-3.5); Glucose 116 mg/dL (80-115); Potassium 4.7 mmol/L (3.5-5.1); Protein, Total 5.9 g/dL (5.8-8.1); Sodium 133 mmol/L (136-145)
[2020-09-22] MEDS: HYDROcodone/Acetaminophen 10/325 mg Tablet PO PRN ×3 (04:48→21:41)
[2020-09-22] MEDS: Ketorolac Tromethamine 30 MG/ML VIAL IVP SCH ×3 (05:08→18:39)
[2020-09-22] MEDS: Mometasone 200 MCG/Formoterol 5 MCG 120 PUFF INHALER INH SCH ×2 (08:01→18:45)
[2020-09-22] MEDS: Morphine 4 MG/ML VIAL SLOW IVP PRN (08:40)
[2020-09-22] MEDS: Famotidine/PF 20 mg/2ml Vial SLOW IVP SCH ×2 (08:42→21:35)
[2020-09-22] MEDS: Metoprolol Tartrate 25 MG TAB PO SCH ×2 (08:43→21:35)
--- NOTE | 2020-09-22 08:46 | PRG ---
DATE OF SERVICE: 09/22/2020 SUBJECTIVE: The patient reports that his pain is worse today with him getting up. He states the binder is digging into his armpit and also the incision is hurting worse. He says he is breathing okay. OBJECTIVE: VITAL SIGNS: His heart rate is 79. His blood pressure is 114/72, temperature is 98.5. GENERAL: He is sitting up, tolerating his clear liquids. Denies nausea or vomiting. ABDOMEN: His abdomen is morbidly obese, soft, postop tender. LABORATORY DATA: His white count is 19, H and H 10 and 30, platelet count 225. Now, his hemoglobin dropped from midnight from . PLAN: So the plan is to repeat his H and H or CBC now. If when stable, I would like to get him back on his anticoagulation, but at this point, we need to continue to hold. Job ID: [id number]
[2020-09-22] MEDS: Lactated Ringer's 1,000 ML IV SCH (08:47)
[2020-09-22 09:03] LABS: Hemoglobin 10.9 g/dL (14.0-18.0); Mean Corpuscular HGB CONC 32.5 g/dL (32.0-36.0); Mean Corpuscular Hemoglobin 30.5 pg (27.0-31.0); Mean Corpuscular Volume 93.9 fL (78.0-98.0); Mean Platelet Volume 7.1 fL (7.4-10.4); Platelet Count 257 thou/uL (130-400); Red Blood Cell (RBC) Count 3.58 mill/uL (4.70-6.10); White Blood Cell (WBC) Count 21.4 thou/uL (4.8-10.8)
--- NOTE | 2020-09-22 09:28 | PRG ---
DATE OF SERVICE: 09/22/2020 SUBJECTIVE: Naman Romero post lap cholecystectomy followed by postop bleeding. He is doing well this morning. He said he is breathing much better. He is coughing a large quantity of sputum. He has known history of atrial fibrillation and severe sleep apnea, had been on auto bilevel at home. OBJECTIVE: VITAL SIGNS: Pulse 79, respirations 18, sats 98% on 4 L, and blood pressure 140/76. CHEST: No wheezing, no crackles. CARDIAC: Normal S1, S2. No gallops. ABDOMEN: No masses. LABORATORY DATA: Labs otherwise unremarkable. X-ray was clear. IMPRESSION: Respiratory failure, morbid obesity, severe sleep apnea on auto bilevel at home, status post laparoscopic cholecystectomy followed by re-exploration for bleed, stable. Abnormal liver function, improved. PLAN: Empiric nocturnal BiPAP being ordered. Otherwise, I agree with present treatment. Supportive care. PT. Aggressive ambulation. Job ID: [id number]
[2020-09-22] MEDS ORDERED: Furosemide 40 MG/4 ML VIAL SLOW IVP SCH (10:45)
[2020-09-22 12:17] LABS: Band 4 % (5-11); Lymphocytes 18 % (21-51); MDiff Complete? YES; Monocytes 8 % (0-10); Neutrophil 70 % (42-75); RBC Morphology Normal
--- NOTE | 2020-09-22 13:24 | PDOC.HOSPP ---
- Subjective Subjective: pt complaints of expected post op pain. has some audible wheezing. LFT normalized. rpt Hb stable - Objective Vital Signs & Weight: Vital Signs (12 hours) Temp Pulse Resp Pulse Ox 09/22/20 11:57 98.5 F 09/22/20 08:02 95 09/22/20 08:00 79 18 94 L 09/22/20 07:45 97 Weight Weight 358 lb 14.601 oz Most Recent Monitor Data Heart Rate from ECG 84 NIBP 137/93 NIBP BP-Mean 107 Respiration from ECG 20 SpO2 97 I&O: 09/21/20 09/22/20 09/23/20 06:59 06:59 06:59 Intake Total 3368 4091.5 960 Output Total 1495 1760 800 Balance 1873 2331.5 160 Result Diagrams: 09/22/20 08:43 09/22/20 03:20 Hospitalist ROS - Medication Medications: Active Medications Generic Name Dose Route Start Last Admin Trade Name Freq PRN Reason Stop Dose Admin Acetaminophen 1,000 mg 09/16/20 03:26 09/19/20 08:49 Acetaminophen 500 Mg Tab PO 1,000 mg Q6H PRN Administration Mild Pain (1-3) Hydrocodone Bitart/Acetaminophen 1 tab 09/20/20 13:33 09/22/20 04:48 Hydrocodone/Acetaminophen 10/325 Mg Tablet PO 1 tab Q6H PRN Administration Moderate Pain (4-6) Hydrocodone Bitart/Acetaminophen 2 tab 09/20/20 13:33 09/22/20 09:56 Hydrocodone/Acetaminophen 10/325 Mg Tablet PO 2 tab Q6H PRN Administration Severe Pain (7-10) Al Hydroxide/Mg Hydroxide 15 ml 09/20/20 13:33 09/21/20 23:17 Mag-Al 1200 Mg/1200 Mg/30 Ml Udcup PO 15 ml Q6H PRN Administration Dyspepsia Albuterol/Ipratropium 3 ml 09/19/20 19:00 09/22/20 08:00 Ipratropium/Albuterol Sulfate 3 Ml Neb NEB 3 ml [id number] MAHSA Administration Famotidine 20 mg 09/20/20 21:00 09/22/20 08:42 Famotidine/Pf 20 Mg/2ml Vial SLOW IVP 20 mg Q12HR MAHSA Administration Piperacillin Sod/Tazobactam 100 mls @ 200 mls/hr 09/16/20 04:00 09/22/20 09:24 Sod 3.375 gm/ Sodium Chloride IVPB 100 mls 0400,1000,1600,2200 MAHSA Administration Diltiazem HCl 125 mg/ 125 mls @ 5 mls/hr 09/21/20 04:30 09/22/20 03:28 Miscellaneous Medication 1 IVPB 125 mls each/ Sodium Chloride INF MAHSA Administration Protocol Ketorolac Tromethamine 15 mg 09/20/20 18:00 09/22/20 11:25 Ketorolac Tromethamine 30 Mg/Ml Vial IVP 09/25/20 18:01 15 mg Q6HR MAHSA Administration Lisinopril 2.5 mg 09/18/20 21:00 09/21/20 20:54 Lisinopril 2.5 Mg Tab PO 2.5 mg HS MAHSA Administration Metoprolol Tartrate 25 mg 09/16/20 21:00 09/22/20 08:43 Metoprolol Tartrate 25 Mg Tab PO 25 mg BID MAHSA Administration Mometasone Furoate/Formoterol Fumar 2 puff 09/17/20 06:30 09/22/20 08:01 Mometasone 200 Mcg/Formoterol 5 Mcg 120 Puff Inhaler INH 2 puff BID-RT MAHSA Administration Morphine Sulfate 2 mg 09/20/20 13:33 09/21/20 17:39 Morphine 2 Mg/Ml Vial SLOW IVP 2 mg Q2H PRN Administration Mild Pain (1-3) Morphine Sulfate 4 mg 09/20/20 13:33 09/22/20 08:40 Morphine 4 Mg/Ml Vial SLOW IVP 4 mg Q2H PRN Administration Moderate Pain (4-6) Ondansetron HCl 4 mg 09/20/20 13:33 09/20/20 21:59 Ondansetron Pf 4 Mg/2 Ml Vial IVP 4 mg Q6H PRN Administration Nausea/Vomiting Polyethylene Glycol 17 gm 09/16/20 20:08 09/17/20 21:37 Polyethylene Glycol 3350 17 Gm Packet PO 17 gm DAILYPRN PRN Administration Constipation Sodium Chloride 10 ml 09/16/20 09:00 09/22/20 08:45 Flush - Normal Saline 10 Ml Syringe IVF 10 ml Q12HR MAHSA Administration Sodium Chloride 10 ml 09/16/20 06:45 09/19/20 16:56 Flush - Normal Saline 10 Ml Syringe IVF 10 ml PRN PRN Administration Saline Flush - Exam General Appearance: NAD Eye: PERRL ENT: normocephalic atraumatic Neck: supple Heart: RRR Respiratory: wheezes Gastrointestinal: soft, non-tender, non-distended Skin: normal turgor Neurological: cranial nerve grossly intact Musculoskeletal: normal tone Psychiatric: normal affect, normal behavior, A&O x 3 Hosp A/P - Plan Patient is a 65 years old gentleman who was transferred from [facility], who presented with right upper quadrant pain. Further workup showed elevated LFTs, and HIDA scan findings consistent with acute cholecystiti s. Acute Cholecystitis --s/p lap reva, complicated with post op bleed, now s/p ex lap with evac --cont routine post op mgt as per surgery. Diet advanced per surgery. --rpt Hb stable. Transfer to [facility] AFib with RVR --rate uncontrolled after procedures, required Cardizem gtt, wean as neel --cont BB, resume AC when OK with surgery Volume overload from blood transfusion/volume resuscitation for hypotensive episode/post op bleeding --has audible wheezes on exam. cont nebs treatment. --start IV diuresis. Echo showed preserved EF. Acute blood loss anemia --s/p 2U PRBC, Hb stable Elevated LFT --as above. LFT normalized Supratherapeutic INR - s/p reversal with Vit K --resume AC when OK with surgery Morbid Obesity with BMI 53 --Aggressive lifestyle modification is recommended
[2020-09-22] MEDS: Mag-Al 1200 mg/1200 mg/30 ML UDCUP PO PRN (14:04)
[2020-09-22] MEDS: Lisinopril 2.5 MG TAB PO SCH (21:35)
[2020-09-23] MEDS: Ketorolac Tromethamine 30 MG/ML VIAL IVP SCH ×3 (00:30→14:41)
[2020-09-23] MEDS: Piperacillin/Tazobactam 3.375 GM in Sodium Chloride 0.9% 100 ML IVPB SCH ×4 (05:54→21:30)
[2020-09-23] MEDS: Diltiazem HCl 125 MG, Admixture Fee 1 EACH in Sodium Chloride 0.9% 100 ML IVPB SCH (06:22)
[2020-09-23] MEDS: Mometasone 200 MCG/Formoterol 5 MCG 120 PUFF INHALER INH SCH ×2 (07:56→18:25)
[2020-09-23] MEDS: Metoprolol Tartrate 25 MG TAB PO SCH ×2 (08:43→21:35)
[2020-09-23] MEDS: Famotidine/PF 20 mg/2ml Vial SLOW IVP SCH ×2 (08:43→21:31)
[2020-09-23] MEDS: Furosemide 40 MG/4 ML VIAL SLOW IVP SCH (08:43)
--- NOTE | 2020-09-23 10:17 | PDOC.GSPN ---
Surgery Progress Note: Subj - Subjective Narrative: Patient is status post laparoscopic cholecystectomy with reexploration for bleeding- He states that he is tolerating his clear liquid diet. Desires to get out of bed and ambulate. He is starting to develop an interest in trying to go home, but since he lives alone, he is worried about the implications of going home. He does have right upper quadrant incisional pain. Obviously, this is worse when he moves. Is passing flatus and does not have any nausea or vomiting. Surgery Progress Note: Obj - Vital signs Vital signs: Vital Signs - Most Recent Temp Pulse Resp BP Pulse Ox 97.9 F 88 20 116/61 95 09/23/20 08:30 09/23/20 08:30 09/23/20 08:30 09/23/20 08:30 09/23/20 08:30 - Physical Exam Additional exam: General-no acute distress, obese Head-[normocephalic, atraumatic] HEENT- [EOMI], [PERRLA] Neck-[trachea midline, supple] Lungs-some wheezing bilaterally, [normal air movement] Heart-[regular regular], [no murmurs] Abdomen-obese, [soft], [nondistended], tender to palpation around the right upper quadrant and supraumbilical area in the region of his incisions,, [normal active bowel sounds] Surgery Progress Note: Results - Labs Result Diagrams: 09/22/20 08:43 09/22/20 03:20 Surgery Progress Note: A/P - Problem (1) Morbid obesity with BMI of 50.0-59.9, adult Current Visit: No Code(s): E66.01 - MORBID (SEVERE) OBESITY DUE TO EXCESS CALORIES; Z68.43 - BODY MASS INDEX [BMI] 50.0-59.9, ADULT Status: Acute Assessment and Plan: Patient is status post cholecystectomy with reexploration for hemorrhage in the setting of a gentleman who is on anticoagulation. At this point, I think most of his convalescent period will be spent around mobilization and physical therapy. Obviously, given his BMI, he is at an increased risk for multiple issues. He has a consult for physical therapy for walking. I think it would be reasonable to advance his diet today. He states he is starting to feel somewhat "backed up". He is already on MiraLAX. I think for today, just advancing his diet will be sufficient. His white blood cell count went up a little bit yesterday. I have rechecked that today. It is not back yet. Otherwise, he has been afebrile with normal heart rate. Okay to restart anticoagulation from a surgical standpoint. Ambulate. Advance to regular diet.
[2020-09-23 10:51] LABS: #Eosinphils 0.5 thou/uL (0.0-0.7); #Lymphocytes 3.2 thou/uL (1.20-3.40); #Monocytes 1.1 thou/uL (0.11-0.59); #Neutrophils 10.8 thou/uL (1.40-6.50); %Basophils 0.2 % (0.0-1.0); %Eosinophils 3.2 % (0.0-10.0); %Lymphocytes 20.5 % (21.0-51.0); %Monocytes 7.2 % (0.0-10.0); %Neutrophils 68.9 % (42.0-75.0); Mean Corpuscular HGB CONC 33.1 g/dL (32.0-36.0); Mean Corpuscular Hemoglobin 30.5 pg (27.0-31.0); Mean Corpuscular Volume 92.4 fL (78.0-98.0); Mean Platelet Volume 6.8 fL (7.4-10.4); Platelet Count 277 thou/uL (130-400); RBC Distribution Width 13.8 % (11.5-14.5); Red Blood Cell (RBC) Count 3.26 mill/uL (4.70-6.10); White Blood Cell (WBC) Count 15.7 thou/uL (4.8-10.8)
--- NOTE | 2020-09-23 13:41 | PDOC.HOSPP ---
- Subjective Encounter Date: 09/23/20 Encounter Time: 09:45 Subjective: Patient doing well. ESS abdominal dressings. Abdominal sounds. Did not had any bowel movement this morning. Is on clear liquid diet this morning. Significant ecchymosis around the navel area dressing sites in the abdomen looks clean. - Objective Vital Signs & Weight: Vital Signs (12 hours) Temp Pulse Resp BP Pulse Ox 09/23/20 11:35 96.9 F L 67 10 L 124/67 100 09/23/20 08:30 97.9 F 88 20 116/61 95 09/23/20 07:56 73 20 09/23/20 07:49 73 24 H 09/23/20 04:26 95 09/23/20 04:00 97.9 F 77 20 115/70 93 L 09/23/20 02:53 99 Weight Weight 358 lb 14.601 oz Most Recent Monitor Data Heart Rate from ECG 84 NIBP 137/93 NIBP BP-Mean 107 Respiration from ECG 20 SpO2 97 I&O: 09/22/20 09/23/20 09/24/20 06:59 06:59 06:59 Intake Total 4091.5 960 862 Output Total 1598 464 3698 Balance 2331.5 160 -138 Result Diagrams: 09/23/20 10:39 09/22/20 03:20 Additional Labs: Accuchecks 09/22/20 16:36 POC Glucose 127 H Hospitalist ROS - Medication Medications: Active Medications Generic Name Dose Route Start Last Admin Trade Name Freq PRN Reason Stop Dose Admin Acetaminophen 1,000 mg 09/16/20 03:26 09/19/20 08:49 Acetaminophen 500 Mg Tab PO 1,000 mg Q6H PRN Administration Mild Pain (1-3) Hydrocodone Bitart/Acetaminophen 1 tab 09/20/20 13:33 09/22/20 04:48 Hydrocodone/Acetaminophen 10/325 Mg Tablet PO 1 tab Q6H PRN Administration Moderate Pain (4-6) Hydrocodone Bitart/Acetaminophen 2 tab 09/20/20 13:33 09/22/20 21:41 Hydrocodone/Acetaminophen 10/325 Mg Tablet PO 2 tab Q6H PRN Administration Severe Pain (7-10) Al Hydroxide/Mg Hydroxide 15 ml 09/20/20 13:33 09/22/20 14:04 Mag-Al 1200 Mg/1200 Mg/30 Ml Udcup PO 15 ml Q6H PRN Administration Dyspepsia Albuterol/Ipratropium 3 ml 09/19/20 19:00 09/23/20 07:49 Ipratropium/Albuterol Sulfate 3 Ml Neb NEB 3 ml [id number] MAHSA Administration Famotidine 20 mg 09/20/20 21:00 09/23/20 08:43 Famotidine/Pf 20 Mg/2ml Vial SLOW IVP 20 mg Q12HR MAHSA Administration Furosemide 40 mg 09/23/20 09:00 09/23/20 08:43 Furosemide 40 Mg/4 Ml Vial SLOW IVP 40 mg DAILY MAHSA Administration Piperacillin Sod/Tazobactam 100 mls @ 200 mls/hr 09/16/20 04:00 09/23/20 08:44 Sod 3.375 gm/ Sodium Chloride IVPB 100 mls 0400,1000,1600,2200 MAHSA Administration Diltiazem HCl 125 mg/ 125 mls @ 5 mls/hr 09/21/20 04:30 09/23/20 06:22 Miscellaneous Medication 1 IVPB 125 mls each/ Sodium Chloride INF MAHSA Administration Protocol Ketorolac Tromethamine 15 mg 09/20/20 18:00 09/23/20 06:35 Ketorolac Tromethamine 30 Mg/Ml Vial IVP 09/25/20 18:01 Not Given Q6HR MAHSA Lisinopril 2.5 mg 09/18/20 21:00 09/22/20 21:35 Lisinopril 2.5 Mg Tab PO 2.5 mg HS MAHSA Administration Metoprolol Tartrate 25 mg 09/16/20 21:00 09/23/20 08:43 Metoprolol Tartrate 25 Mg Tab PO 25 mg BID MAHSA Administration Mometasone Furoate/Formoterol Fumar 2 puff 09/17/20 06:30 09/23/20 07:56 Mometasone 200 Mcg/Formoterol 5 Mcg 120 Puff Inhaler INH 2 puff BID-RT MAHSA Administration Morphine Sulfate 2 mg 09/20/20 13:33 09/21/20 17:39 Morphine 2 Mg/Ml Vial SLOW IVP 2 mg Q2H PRN Administration Mild Pain (1-3) Morphine Sulfate 4 mg 09/20/20 13:33 09/22/20 08:40 Morphine 4 Mg/Ml Vial SLOW IVP 4 mg Q2H PRN Administration Moderate Pain (4-6) Ondansetron HCl 4 mg 09/20/20 13:33 09/20/20 21:59 Ondansetron Pf 4 Mg/2 Ml Vial IVP 4 mg Q6H PRN Administration Nausea/Vomiting Polyethylene Glycol 17 gm 09/16/20 20:08 09/17/20 21:37 Polyethylene Glycol 3350 17 Gm Packet PO 17 gm DAILYPRN PRN Administration Constipation Sodium Chloride 10 ml 09/16/20 09:00 09/23/20 08:43 Flush - Normal Saline 10 Ml Syringe IVF 10 ml Q12HR MAHSA Administration Sodium Chloride 10 ml 09/16/20 06:45 09/19/20 16:56 Flush - Normal Saline 10 Ml Syringe IVF 10 ml PRN PRN Administration Saline Flush - Exam General Appearance: NAD, awake alert General - other findings: Obese Eye: PERRL ENT: normocephalic atraumatic Neck: supple Heart: RRR Respiratory: CTAB, normal chest expansion Gastrointestinal: soft, normal bowel sounds, distended Gastrointestinal - other findings: Severe ecchymosis around the navel area. Dressings intact. No soiling Neurological: no focal deficits Musculoskeletal: generalized weakness Psychiatric: A&O x 3 Hosp A/P - Plan 65 years old gentleman who was transferred from [facility], who presented with right upper quadrant pain. Further workup showed elevated LFTs, and HIDA scan findings consistent with acute cholecystitis. Acute Cholecystitis --s/p lap reva, complicated with post op bleed, now s/p ex lap with evac --cont routine post op mgt as per surgery. Diet advanced per surgery. --rpt Hb stable. Transfer to [facility] AFib with RVR --rate uncontrolled after procedures, required Cardizem gtt, Volume overload from blood transfusion/volume resuscitation for hypotensive episode/post op bleeding --has audible wheezes on exam. cont nebs treatment. --start IV diuresis. Echo showed preserved EF. Acute blood loss anemia --s/p 2U PRBC, Hb stable Elevated LFT --as above. LFT normalized Supratherapeutic INR - s/p reversal with Vit K --resume AC when OK with surgery Morbid Obesity with BMI 53 --Aggressive lifestyle modification is recommended --Okay to restart the Coumadin, per surgery -WBC is coming down. Mild hyponatremia with a sodium 133. LFTs are trending down. -Ambulation.
[2020-09-23] MEDS: Morphine 4 MG/ML VIAL SLOW IVP PRN (15:02)
[2020-09-23] MEDS: Warfarin Sodium 2 MG TAB PO SCH (17:21)
[2020-09-23] MEDS: Lisinopril 2.5 MG TAB PO SCH (21:31)
[2020-09-24] MEDS: HYDROcodone/Acetaminophen 10/325 mg Tablet PO PRN ×3 (02:22→21:25)
[2020-09-24] MEDS: Piperacillin/Tazobactam 3.375 GM in Sodium Chloride 0.9% 100 ML IVPB SCH ×4 (03:10→21:19)
[2020-09-24 04:45] LABS: INR-International Normal Ratio 1.1; PTT 29.2 sec (22.9-36.1); Prothrombin Time 14.3 sec (12.0-14.7)
[2020-09-24 04:50] LABS: #Eosinphils 0.5 thou/uL (0.0-0.7); #Lymphocytes 2.6 thou/uL (1.20-3.40); #Neutrophils 9.2 thou/uL (1.40-6.50); %Basophils 0.3 % (0.0-1.0); %Eosinophils 3.7 % (0.0-10.0); %Lymphocytes 19.6 % (21.0-51.0); %Monocytes 7.3 % (0.0-10.0); %Neutrophils 69.1 % (42.0-75.0); Hemoglobin 9.2 g/dL (14.0-18.0); Mean Corpuscular HGB CONC 32.7 g/dL (32.0-36.0); Mean Corpuscular Hemoglobin 30.5 pg (27.0-31.0); Mean Corpuscular Volume 93.2 fL (78.0-98.0); Mean Platelet Volume 6.9 fL (7.4-10.4); Platelet Count 258 thou/uL (130-400); RBC Distribution Width 13.9 % (11.5-14.5); Red Blood Cell (RBC) Count 3.02 mill/uL (4.70-6.10); White Blood Cell (WBC) Count 13.3 thou/uL (4.8-10.8)
[2020-09-24] MEDS: Mometasone 200 MCG/Formoterol 5 MCG 120 PUFF INHALER INH SCH ×2 (08:04→18:57)
[2020-09-24] MEDS: Famotidine/PF 20 mg/2ml Vial SLOW IVP SCH ×2 (08:21→21:20)
[2020-09-24] MEDS: Furosemide 40 MG/4 ML VIAL SLOW IVP SCH (08:21)
[2020-09-24] MEDS: Morphine 4 MG/ML VIAL SLOW IVP PRN (08:21)
[2020-09-24] MEDS: Metoprolol Tartrate 25 MG TAB PO SCH ×2 (08:21→21:21)
[2020-09-24] MEDS: Diltiazem HCl 125 MG, Admixture Fee 1 EACH in Sodium Chloride 0.9% 100 ML IVPB SCH (09:03)
--- NOTE | 2020-09-24 12:06 | PDOC.GSPN ---
Surgery Progress Note: Subj - Subjective Narrative: Patient actually looks a little happier today. He is tolerating a regular diet. No nausea or vomiting. He states his pain is improving. He worked with physical therapy yesterday and today already. He feels like he is making physical progress. Curious about when he is able to go home. Seems to have a much brighter affect today Surgery Progress Note: Obj - Vital signs Vital signs: Vital Signs - Most Recent Temp Pulse Resp BP Pulse Ox 97.8 F 86 18 118/64 95 09/24/20 11:15 09/24/20 11:15 09/24/20 11:15 09/24/20 11:15 09/24/20 11:15 - Physical Exam Additional exam: General-morbidly obese, no distress Head-[normocephalic, atraumatic] HEENT- [EOMI], [PERRLA] Neck-[trachea midline, supple] Lungs-[grossly clear to auscultation], [normal air movement] Heart-irregularly irregular, [no murmurs] Abdomen-[soft], [nondistended], appropriately tender around incisions, [normal active bowel sounds], ecchymosis around the umbilicus-stable Musculosketal-[full range of motion], [no gross deformity] Psychiatric-[good insight, good judgment] Skin-[good turgor, no jaundice] Neuro- [GCS 15], [CN II-XII intact] Surgery Progress Note: Results - Labs Result Diagrams: 09/24/20 04:10 09/22/20 03:20 Lab results: Laboratory Results - last 12 hr 09/24/20 09/24/20 04:10 04:10 WBC 13.3 H RBC 3.02 L Hgb 9.2 L Hct 28.1 L MCV 93.2 MCH 30.5 MCHC 32.7 RDW 13.9 Plt Count 258 MPV 6.9 L Neutrophils % 69.1 Lymphocytes % 19.6 L Monocytes % 7.3 Eosinophils % 3.7 Basophils % 0.3 Neutrophils # 9.2 H Lymphocytes # 2.6 Monocytes # 1.0 H Eosinophils # 0.5 Basophils # 0.0 PT 14.3 INR 1.1 APTT 29.2 Surgery Progress Note: A/P - Problem (1) Morbid obesity with BMI of 50.0-59.9, adult Current Visit: No Code(s): E66.01 - MORBID (SEVERE) OBESITY DUE TO EXCESS CALORIES; Z68.43 - BODY MASS INDEX [BMI] 50.0-59.9, ADULT Status: Acute Assessment and Plan: White blood cell count is improved. He has been afebrile. He is tolerating a regular diet. He is working with physical therapy. I think that he is working towards disposition out of the hospital. He will need help with case management , probably for home health assistance. Today we will remove his Fuentes catheter. Continue with physical therapy. Plan for disposition
--- NOTE | 2020-09-24 13:43 | PDOC.HOSPP ---
- Subjective Encounter Date: 09/24/20 Encounter Time: 11:00 Subjective: Patient is doing well. He did not had any bowel movement this morning. Tolerating his regular diet. His white count is trending down. We will discontinue the Fuentes. Talk to the RN. - Objective Vital Signs & Weight: Vital Signs (12 hours) Temp Pulse Pulse Pulse Resp BP BP 09/24/20 11:15 97.8 F 86 18 09/24/20 08:48 84 84 128/67 122/56 L 09/24/20 08:09 09/24/20 08:00 79 20 09/24/20 07:35 97.9 F 68 20 09/24/20 03:06 98.2 F 65 18 BP Pulse Ox 09/24/20 11:15 118/64 95 09/24/20 08:48 09/24/20 08:09 95 09/24/20 08:00 09/24/20 07:35 118/66 98 09/24/20 03:06 102/57 L Weight Weight 378 lb Most Recent Monitor Data Heart Rate from ECG 84 NIBP 137/93 NIBP BP-Mean 107 Respiration from ECG 20 SpO2 97 I&O: 09/23/20 09/24/20 09/25/20 06:59 06:59 06:59 Intake Total 960 3352 Output Total 800 7100 1350 Balance 914 -0660 -0541 Result Diagrams: 09/24/20 04:10 09/22/20 03:20 Hospitalist ROS - Medication Medications: Active Medications Generic Name Dose Route Start Last Admin Trade Name Freq PRN Reason Stop Dose Admin Acetaminophen 1,000 mg 09/16/20 03:26 09/19/20 08:49 Acetaminophen 500 Mg Tab PO 1,000 mg Q6H PRN Administration Mild Pain (1-3) Hydrocodone Bitart/Acetaminophen 1 tab 09/20/20 13:33 09/24/20 12:16 Hydrocodone/Acetaminophen 10/325 Mg Tablet PO 1 tab Q6H PRN Administration Moderate Pain (4-6) Al Hydroxide/Mg Hydroxide 15 ml 09/20/20 13:33 09/22/20 14:04 Mag-Al 1200 Mg/1200 Mg/30 Ml Udcup PO 15 ml Q6H PRN Administration Dyspepsia Albuterol/Ipratropium 3 ml 09/19/20 19:00 09/24/20 08:00 Ipratropium/Albuterol Sulfate 3 Ml Neb NEB 3 ml [id number] MAHSA Administration Famotidine 20 mg 09/20/20 21:00 09/24/20 08:21 Famotidine/Pf 20 Mg/2ml Vial SLOW IVP 20 mg Q12HR MAHSA Administration Furosemide 40 mg 09/23/20 09:00 09/24/20 08:21 Furosemide 40 Mg/4 Ml Vial SLOW IVP 40 mg DAILY MAHSA Administration Piperacillin Sod/Tazobactam 100 mls @ 200 mls/hr 09/16/20 04:00 09/24/20 09:02 Sod 3.375 gm/ Sodium Chloride IVPB 100 mls 0400,1000,1600,2200 MAHSA Administration Diltiazem HCl 125 mg/ 125 mls @ 5 mls/hr 09/21/20 04:30 09/24/20 09:03 Miscellaneous Medication 1 IVPB 125 mls each/ Sodium Chloride INF MAHSA Administration Protocol Lisinopril 2.5 mg 09/18/20 21:00 09/23/20 21:31 Lisinopril 2.5 Mg Tab PO 2.5 mg HS MAHSA Administration Metoprolol Tartrate 25 mg 09/16/20 21:00 09/24/20 08:21 Metoprolol Tartrate 25 Mg Tab PO 25 mg BID MAHSA Administration Mometasone Furoate/Formoterol Fumar 2 puff 09/17/20 06:30 09/24/20 08:04 Mometasone 200 Mcg/Formoterol 5 Mcg 120 Puff Inhaler INH 2 puff BID-RT MAHSA Administration Morphine Sulfate 2 mg 09/20/20 13:33 09/21/20 17:39 Morphine 2 Mg/Ml Vial SLOW IVP 2 mg Q2H PRN Administration Mild Pain (1-3) Morphine Sulfate 4 mg 09/20/20 13:33 09/24/20 08:21 Morphine 4 Mg/Ml Vial SLOW IVP 4 mg Q2H PRN Administration Moderate Pain (4-6) Ondansetron HCl 4 mg 09/20/20 13:33 09/20/20 21:59 Ondansetron Pf 4 Mg/2 Ml Vial IVP 4 mg Q6H PRN Administration Nausea/Vomiting Polyethylene Glycol 17 gm 09/16/20 20:08 09/17/20 21:37 Polyethylene Glycol 3350 17 Gm Packet PO 17 gm DAILYPRN PRN Administration Constipation Sodium Chloride 10 ml 09/16/20 09:00 09/24/20 08:21 Flush - Normal Saline 10 Ml Syringe IVF 10 ml Q12HR MAHSA Administration Sodium Chloride 10 ml 09/16/20 06:45 09/19/20 16:56 Flush - Normal Saline 10 Ml Syringe IVF 10 ml PRN PRN Administration Saline Flush Warfarin Sodium 4 mg 09/23/20 17:00 09/23/20 17:21 Warfarin Sodium 2 Mg Tab PO 4 mg 1700 MAHSA Administration - Exam General Appearance: NAD, awake alert Eye: PERRL ENT: normocephalic atraumatic Neck: supple Heart: RRR Respiratory: CTAB, normal chest expansion Gastrointestinal: soft, normal bowel sounds Neurological: cranial nerve grossly intact, no focal deficits Psychiatric: A&O x 3 Hosp A/P - Plan 65 years old gentleman who was transferred from [facility], who presented with right upper quadrant pain. Further workup showed elevated LFTs, and HIDA scan findings consistent with acute cholecystitis. Acute Cholecystitis --s/p lap reva, complicated with post op bleed, now s/p ex lap with evac --cont routine post op mgt as per surgery. Diet advanced per surgery. --rpt Hb stable. Transfer to [facility] AFib with RVR --rate uncontrolled after procedures, required Cardizem gtt, Volume overload from blood transfusion/volume resuscitation for hypotensive episode/post op bleeding --has audible wheezes on exam. cont nebs treatment. --start IV diuresis. Echo showed preserved EF. Acute blood loss anemia --s/p 2U PRBC, Hb stable Elevated LFT --as above. LFT normalized Supratherapeutic INR - s/p reversal with Vit K --resume AC when OK with surgery Morbid Obesity with BMI 53 --Aggressive lifestyle modification is recommended --Okay to restart the Coumadin, per surgery -WBC is coming down. Mild hyponatremia with a sodium 133. LFTs are trending down. airfield manager consult placed for home health arrangement. DC Fuentes -Ambulation.
[2020-09-24] MEDS: Warfarin Sodium 2 MG TAB PO SCH (17:28)
[2020-09-24] MEDS: Acetaminophen 500 MG TAB PO PRN (17:33)
[2020-09-24] MEDS: Lisinopril 2.5 MG TAB PO SCH (21:20)
[2020-09-25] MEDS: Morphine 2 MG/ML VIAL SLOW IVP PRN (03:24)
[2020-09-25] MEDS: Piperacillin/Tazobactam 3.375 GM in Sodium Chloride 0.9% 100 ML IVPB SCH ×4 (03:27→20:53)
[2020-09-25 07:18] LABS: #Eosinphils 0.6 thou/uL (0.0-0.7); #Lymphocytes 2.4 thou/uL (1.20-3.40); #Neutrophils 8.6 thou/uL (1.40-6.50); %Basophils 0.3 % (0.0-1.0); %Eosinophils 4.5 % (0.0-10.0); %Lymphocytes 19.3 % (21.0-51.0); %Monocytes 7.6 % (0.0-10.0); %Neutrophils 68.2 % (42.0-75.0); Hemoglobin 9.5 g/dL (14.0-18.0); Mean Corpuscular HGB CONC 32.2 g/dL (32.0-36.0); Mean Corpuscular Hemoglobin 30.4 pg (27.0-31.0); Mean Corpuscular Volume 94.3 fL (78.0-98.0); Mean Platelet Volume 6.8 fL (7.4-10.4); Platelet Count 283 thou/uL (130-400); RBC Distribution Width 14.2 % (11.5-14.5); Red Blood Cell (RBC) Count 3.12 mill/uL (4.70-6.10); White Blood Cell (WBC) Count 12.6 thou/uL (4.8-10.8)
[2020-09-25 07:37] LABS: Anion Gap 14 mmol/L (10-20); BUN (Urea Nitrogen) 8 mg/dL (8.4-25.7); Calc. Creatinine Clearance 285 mL/min (70-130); Calcium 8.2 mg/dL (7.8-10.44); Carbon Dioxide 28 mmol/L (23-31); Chloride 99 mmol/L (98-107); Glucose 99 mg/dL (80-115); Potassium 4.5 mmol/L (3.5-5.1); Sodium 136 mmol/L (136-145)
[2020-09-25] MEDS: Metoprolol Tartrate 25 MG TAB PO SCH ×2 (07:53→20:54)
[2020-09-25] MEDS: Polyethylene Glycol 3350 17 GM Packet PO PRN (07:53)
[2020-09-25] MEDS: Furosemide 40 MG/4 ML VIAL SLOW IVP SCH (07:53)
[2020-09-25] MEDS: Famotidine/PF 20 mg/2ml Vial SLOW IVP SCH ×2 (07:53→20:53)
[2020-09-25 08:20] LABS: INR-International Normal Ratio 1.1; PTT 30.9 sec (22.9-36.1); Prothrombin Time 14.2 sec (12.0-14.7)
[2020-09-25] MEDS: Mometasone 200 MCG/Formoterol 5 MCG 120 PUFF INHALER INH SCH ×2 (08:41→19:45)
--- NOTE | 2020-09-25 12:12 | PRG ---
DATE OF SERVICE: 09/25/2020 SUBJECTIVE: Naman Romero is a 65-year-old morbidly obese gentleman, status post laparoscopic cholecystectomy followed by a bleed. He is better. He is weak. He wants home health. OBJECTIVE: VITAL SIGNS: Temperature 98, pulse , saturations 98% on room air, blood pressure 120/64. CHEST: No wheezing. No crackles. CARDIAC: Normal S1 and S2. No gallops. ABDOMEN: No masses. LABORATORY DATA: His bicarb is 28, slowly increasing. Labs are unremarkable. INR is normal. IMPRESSION: 1. Status post cholecystectomy followed by intraabdominal bleed. 2. Morbid obesity. 3. Sleep apnea. 4. Severe deconditioning. PLAN: consult being ordered. Continue nocturnal BiPAP while in the hospital, eventually home. Pulmonary is going to follow. Job ID: [id number]
--- NOTE | 2020-09-25 14:29 | PDOC.HOSPP ---
- Subjective Encounter Date: 09/25/20 Encounter Time: 11:00 Subjective: Has mild abdominal discomfort. He did had his p.o. intake this morning. Mostly the discomfort and pain is at the wound site. - Objective Vital Signs & Weight: Vital Signs (12 hours) Temp Pulse Pulse Resp BP BP Pulse Ox 09/25/20 13:56 80 16 09/25/20 12:00 99.2 F 88 23 H 120/70 94 L 09/25/20 11:24 99 115/57 L 09/25/20 08:34 78 16 09/25/20 08:00 93 L 09/25/20 07:00 98.9 F 81 17 112/64 93 L 09/25/20 03:26 98.0 F 69 18 115/75 95 Weight Weight 376 lb 6.4 oz Most Recent Monitor Data Heart Rate from ECG 84 NIBP 137/93 NIBP BP-Mean 107 Respiration from ECG 20 SpO2 97 I&O: 09/24/20 09/25/20 09/26/20 06:59 06:59 06:59 Intake Total 3352 1750 Output Total 6172 4730 Balance -8318 -3204 Result Diagrams: 09/25/20 06:53 09/25/20 06:53 Hospitalist ROS - Medication Medications: Active Medications Generic Name Dose Route Start Last Admin Trade Name Freq PRN Reason Stop Dose Admin Acetaminophen 1,000 mg 09/16/20 03:26 09/24/20 17:33 Acetaminophen 500 Mg Tab PO 1,000 mg Q6H PRN Administration Mild Pain (1-3) Hydrocodone Bitart/Acetaminophen 1 tab 09/20/20 13:33 09/24/20 21:25 Hydrocodone/Acetaminophen 10/325 Mg Tablet PO 1 tab Q6H PRN Administration Moderate Pain (4-6) Al Hydroxide/Mg Hydroxide 15 ml 09/20/20 13:33 09/22/20 14:04 Mag-Al 1200 Mg/1200 Mg/30 Ml Udcup PO 15 ml Q6H PRN Administration Dyspepsia Albuterol/Ipratropium 3 ml 09/19/20 19:00 09/25/20 13:56 Ipratropium/Albuterol Sulfate 3 Ml Neb NEB 3 ml [id number] MAHSA Administration Famotidine 20 mg 09/20/20 21:00 09/25/20 07:53 Famotidine/Pf 20 Mg/2ml Vial SLOW IVP 20 mg Q12HR MAHSA Administration Piperacillin Sod/Tazobactam 100 mls @ 200 mls/hr 09/16/20 04:00 09/25/20 09:18 Sod 3.375 gm/ Sodium Chloride IVPB 100 mls 0400,1000,1600,2200 MAHSA Administration Diltiazem HCl 125 mg/ 125 mls @ 5 mls/hr 09/21/20 04:30 09/24/20 09:03 Miscellaneous Medication 1 IVPB 125 mls each/ Sodium Chloride INF MAHSA Administration Protocol Lisinopril 2.5 mg 09/18/20 21:00 09/24/20 21:20 Lisinopril 2.5 Mg Tab PO 2.5 mg HS MAHSA Administration Metoprolol Tartrate 25 mg 09/16/20 21:00 09/25/20 07:53 Metoprolol Tartrate 25 Mg Tab PO 25 mg BID MAHSA Administration Mometasone Furoate/Formoterol Fumar 2 puff 09/17/20 06:30 09/25/20 08:41 Mometasone 200 Mcg/Formoterol 5 Mcg 120 Puff Inhaler INH 2 puff BID-RT MAHSA Administration Morphine Sulfate 2 mg 09/20/20 13:33 09/25/20 03:24 Morphine 2 Mg/Ml Vial SLOW IVP 2 mg Q2H PRN Administration Mild Pain (1-3) Morphine Sulfate 4 mg 09/20/20 13:33 09/24/20 08:21 Morphine 4 Mg/Ml Vial SLOW IVP 4 mg Q2H PRN Administration Moderate Pain (4-6) Ondansetron HCl 4 mg 09/20/20 13:33 09/20/20 21:59 Ondansetron Pf 4 Mg/2 Ml Vial IVP 4 mg Q6H PRN Administration Nausea/Vomiting Polyethylene Glycol 17 gm 09/16/20 20:08 09/25/20 07:53 Polyethylene Glycol 3350 17 Gm Packet PO 17 gm DAILYPRN PRN Administration Constipation Sodium Chloride 10 ml 09/16/20 09:00 09/25/20 07:54 Flush - Normal Saline 10 Ml Syringe IVF 10 ml Q12HR MAHSA Administration Sodium Chloride 10 ml 09/16/20 06:45 09/19/20 16:56 Flush - Normal Saline 10 Ml Syringe IVF 10 ml PRN PRN Administration Saline Flush Warfarin Sodium 4 mg 09/23/20 17:00 09/24/20 17:28 Warfarin Sodium 2 Mg Tab PO 4 mg 1700 MAHSA Administration - Exam General Appearance: NAD, awake alert, ill appearing Eye: PERRL, anicteric sclera ENT: normocephalic atraumatic Neck: supple Heart: RRR Respiratory: CTAB Gastrointestinal: normal bowel sounds, no bruit, no guarding, no rigidity, distended Skin: normal turgor Neurological: cranial nerve grossly intact, no focal deficits Musculoskeletal: generalized weakness Psychiatric: normal affect, normal behavior, A&O x 3 Hosp A/P - Plan 65 years old gentleman who was transferred from [facility], who presented with right upper quadrant pain. Further workup showed elevated LFTs, and HIDA scan findings consistent with acute cholecystitis. Acute Cholecystitis --s/p lap reva, complicated with post op bleed, now s/p ex lap with evac --cont routine post op mgt as per surgery. Diet advanced per surgery. --rpt Hb stable. Transfer to [facility] AFib with RVR --rate uncontrolled after procedures, required Cardizem gtt, Volume overload from blood transfusion/volume resuscitation for hypotensive episode/post op bleeding --has audible wheezes on exam. cont nebs treatment. --start IV diuresis. Echo showed preserved EF. Acute blood loss anemia --s/p 2U PRBC, Hb stable Elevated LFT --as above. LFT normalized Supratherapeutic INR - s/p reversal with Vit K --resume AC when OK with surgery Morbid Obesity with BMI 53 --Aggressive lifestyle modification is recommended --Okay to restart the Coumadin, per surgery -WBC is coming down. Mild hyponatremia with a sodium 133. LFTs are trending down. wholesale account manager consult placed for home health arrangement. DC Fuentes -Ambulation.
[2020-09-25] MEDS: Diltiazem HCl 125 MG, Admixture Fee 1 EACH in Sodium Chloride 0.9% 100 ML IVPB SCH (14:35)
[2020-09-25] MEDS: Acetaminophen 500 MG TAB PO PRN (16:19)
[2020-09-25] MEDS: Morphine 4 MG/ML VIAL SLOW IVP PRN (16:20)
[2020-09-25] MEDS: Warfarin Sodium 2 MG TAB PO SCH (16:22)
--- NOTE | 2020-09-25 17:06 | PRG ---
DATE OF SERVICE: 09/25/2020 SUBJECTIVE: The patient reports that he tried not taking narcotics today and his pain has been pretty bad. He is having a lot of constipation. He says he has passed lots of gas, but not much bowel movement. His living situation is he lives by himself, so he is going to need some help. PHYSICAL EXAMINATION: VITAL SIGNS: His temperature is 99.2, pulse 88, blood pressure 120/70. GENERAL: He is awake, alert. ABDOMEN: Obese, soft. The incision looks okay. LABORATORY DATA: His white count is 12. ASSESSMENT: Doing well. PLAN: Try some laxatives. Case Management consult. Job ID: [id number]
[2020-09-25] MEDS: Milk Of Magnesia 30 ML UDCUP PO PRN (17:33)
[2020-09-25] MEDS: Lisinopril 2.5 MG TAB PO SCH (20:54)
[2020-09-26] MEDS: Acetaminophen 500 MG TAB PO PRN ×2 (03:25→13:35)
[2020-09-26] MEDS: Morphine 4 MG/ML VIAL SLOW IVP PRN ×2 (03:25→21:16)
[2020-09-26] MEDS: Piperacillin/Tazobactam 3.375 GM in Sodium Chloride 0.9% 100 ML IVPB SCH ×4 (03:26→21:10)
[2020-09-26 04:55] LABS: #Eosinphils 0.6 thou/uL (0.0-0.7); #Lymphocytes 2.8 thou/uL (1.20-3.40); #Monocytes 1.3 thou/uL (0.11-0.59); %Basophils 0.1 % (0.0-1.0); %Eosinophils 4.1 % (0.0-10.0); %Neutrophils 69.7 % (42.0-75.0); Hemoglobin 9.9 g/dL (14.0-18.0); Mean Corpuscular Hemoglobin 31.2 pg (27.0-31.0); Mean Corpuscular Volume 94.6 fL (78.0-98.0); Mean Platelet Volume 6.6 fL (7.4-10.4); Platelet Count 350 thou/uL (130-400); RBC Distribution Width 14.1 % (11.5-14.5); Red Blood Cell (RBC) Count 3.18 mill/uL (4.70-6.10); White Blood Cell (WBC) Count 15.7 thou/uL (4.8-10.8)
[2020-09-26 04:59] LABS: INR-International Normal Ratio 1.1; PTT 31.4 sec (22.9-36.1); Prothrombin Time 14.5 sec (12.0-14.7)
[2020-09-26 05:15] LABS: Anion Gap 12 mmol/L (10-20); BUN (Urea Nitrogen) 10 mg/dL (8.4-25.7); Calc. Creatinine Clearance 277 mL/min (70-130); Calcium 8.2 mg/dL (7.8-10.44); Carbon Dioxide 27 mmol/L (23-31); Chloride 98 mmol/L (98-107); Glucose 160 mg/dL (80-115); Potassium 4.2 mmol/L (3.5-5.1); Sodium 133 mmol/L (136-145)
[2020-09-26] MEDS: Mometasone 200 MCG/Formoterol 5 MCG 120 PUFF INHALER INH SCH ×2 (07:19→18:50)
[2020-09-26] MEDS: Milk Of Magnesia 30 ML UDCUP PO PRN (08:07)
[2020-09-26] MEDS: Polyethylene Glycol 3350 17 GM Packet PO PRN (08:07)
[2020-09-26] MEDS: Metoprolol Tartrate 25 MG TAB PO SCH ×2 (08:08→21:16)
[2020-09-26] MEDS: Famotidine/PF 20 mg/2ml Vial SLOW IVP SCH ×2 (08:08→21:14)
[2020-09-26] MEDS ORDERED: Polyethylene Glycol 3350 17 GM Packet PO PRN (09:45)
[2020-09-26] MEDS ORDERED: Bisacodyl 10 MG SUPP PR PRN (09:45)
--- NOTE | 2020-09-26 11:38 | PRG ---
DATE OF SERVICE: 09/26/2020 SUBJECTIVE: Naman Romero is doing well, less pain, less shortness of breath, sleeping on the BiPAP. OBJECTIVE: VITAL SIGNS: His temperature is 98, pulse 79, saturations are 100% on room air, blood pressure 113/58. CHEST: No wheezing, no crackles. CARDIAC: Normal S1 and S2. No gallops. ABDOMEN: No masses. LABORATORY DATA: Unremarkable. IMPRESSION: Status post cholecystitis, morbid obesity, sleep apnea. Disposition home any time. I have asked the patient to have home health see the patient. Job ID: [id number]
--- NOTE | 2020-09-26 12:47 | PRG ---
DATE OF SERVICE: 09/26/2020 SUBJECTIVE: The patient reports he is still having quite a bit of incisional pain. No nausea or vomiting. He is tolerating diet. His heart rate has come down with medication. He is afebrile. Blood pressure 140/76, . He looks good. The incisions look really good. There is no evidence of infection. LABORATORY DATA: His white count is 15, H/H 9.9 and 30, platelet count 350. His electrolytes are fine. ASSESSMENT: Status post open cholecystectomy. PLAN: He wants to go to a rehab or longterm. I have talked to the binder caser, it is not sure he will qualify due to his size. Job ID: [id number]
[2020-09-26] MEDS: HYDROcodone/Acetaminophen 10/325 mg Tablet PO PRN (13:33)
[2020-09-26 15:20] VITALS: BMI 54.0
[2020-09-26] MEDS: Morphine 2 MG/ML VIAL SLOW IVP PRN (16:16)
[2020-09-26] MEDS ORDERED: traMADol HCl 50 MG TAB PO PRN (16:57)
--- NOTE | 2020-09-26 16:58 | PDOC.HOSPP ---
- Subjective Encounter Date: 09/26/20 Encounter Time: 09:50 Subjective: Patient had a good bowel movement today but he is quite exhausted. There is still some discomfort at the wound area otherwise he is doing well this morning. We need to transition him from IV morphine to p.o. Ultram to aid with the discharge to home. - Objective Vital Signs & Weight: Vital Signs (12 hours) Temp Pulse Pulse Resp BP BP BP 09/26/20 15: 98.1 F 85 16 135/99 H 09/26/20 11:54 134/88 09/26/20 11:40 98.4 F 82 20 140/76 09/26/20 09:50 83 128/64 09/26/20 08:07 97.8 F 89 21 H 130/71 Pulse Ox 09/26/20 15: 92 L 09/26/20 11:54 09/26/20 11:40 94 L 09/26/20 09:50 09/26/20 08:07 95 Weight Admit Weight 370 lb 3.2 oz Weight 376 lb 6.4 oz Most Recent Monitor Data Heart Rate from ECG 84 NIBP 137/93 NIBP BP-Mean 107 Respiration from ECG 20 SpO2 97 I&O: 09/25/20 09/26/20 09/27/20 06:59 06:59 06:59 Intake Total 1750 1700 Output Total 1420 3125 Balance -3730 -2860 Result Diagrams: 09/26/20 04:23 09/26/20 04:23 Hospitalist ROS - Medication Medications: Active Medications Generic Name Dose Route Start Last Admin Trade Name Freq PRN Reason Stop Dose Admin Acetaminophen 1,000 mg 09/16/20 03:26 09/26/20 13:35 Acetaminophen 500 Mg Tab PO 1,000 mg Q6H PRN Administration Mild Pain (1-3) Hydrocodone Bitart/Acetaminophen 1 tab 09/20/20 13:33 09/26/20 13:33 Hydrocodone/Acetaminophen 10/325 Mg Tablet PO 1 tab Q6H PRN Administration Moderate Pain (4-6) Al Hydroxide/Mg Hydroxide 15 ml 09/20/20 13:33 09/22/20 14:04 Mag-Al 1200 Mg/1200 Mg/30 Ml Udcup PO 15 ml Q6H PRN Administration Dyspepsia Albuterol/Ipratropium 3 ml 09/19/20 19:00 09/26/20 13:39 Ipratropium/Albuterol Sulfate 3 Ml Neb NEB 3 ml [id number] MAHSA Administration Diltiazem HCl 60 mg 09/25/20 21:00 09/26/20 16:15 Diltiazem Hcl 30 Mg Tablet PO 60 mg TID MAHSA Administration Famotidine 20 mg 09/20/20 21:00 09/26/20 08:08 Famotidine/Pf 20 Mg/2ml Vial SLOW IVP 20 mg Q12HR MAHSA Administration Diltiazem HCl 125 mg/ 125 mls @ 5 mls/hr 09/21/20 04:30 09/25/20 14:35 Miscellaneous Medication 1 IVPB 125 mls each/ Sodium Chloride INF MAHSA Administration Protocol Piperacillin Sod/Tazobactam 100 mls @ 200 mls/hr 09/26/20 14:00 09/26/20 13:40 Sod 3.375 gm/ Sodium Chloride IVPB 100 mls 0200,0800,1400,2000 MAHSA Administration Lisinopril 2.5 mg 09/18/20 21:00 09/25/20 20:54 Lisinopril 2.5 Mg Tab PO 2.5 mg HS MAHSA Administration Magnesium Hydroxide 30 ml 09/25/20 16:50 09/26/20 08:07 Milk Of Magnesia 30 Ml Udcup PO 30 ml DAILYPRN PRN Administration Constipation Metoprolol Tartrate 25 mg 09/16/20 21:00 09/26/20 08:08 Metoprolol Tartrate 25 Mg Tab PO 25 mg BID MAHSA Administration Mometasone Furoate/Formoterol Fumar 2 puff 09/17/20 06:30 09/26/20 07:19 Mometasone 200 Mcg/Formoterol 5 Mcg 120 Puff Inhaler INH 2 puff BID-RT MAHSA Administration Morphine Sulfate 2 mg 09/20/20 13:33 09/26/20 16:16 Morphine 2 Mg/Ml Vial SLOW IVP 2 mg Q2H PRN Administration Mild Pain (1-3) Morphine Sulfate 4 mg 09/20/20 13:33 09/26/20 03:25 Morphine 4 Mg/Ml Vial SLOW IVP 4 mg Q2H PRN Administration Moderate Pain (4-6) Ondansetron HCl 4 mg 09/20/20 13:33 09/20/20 21:59 Ondansetron Pf 4 Mg/2 Ml Vial IVP 4 mg Q6H PRN Administration Nausea/Vomiting Polyethylene Glycol 17 gm 09/16/20 20:08 09/26/20 08:07 Polyethylene Glycol 3350 17 Gm Packet PO 17 gm DAILYPRN PRN Administration Constipation Sodium Chloride 10 ml 09/16/20 09:00 09/26/20 08:08 Flush - Normal Saline 10 Ml Syringe IVF 10 ml Q12HR MAHSA Administration Sodium Chloride 10 ml 09/16/20 06:45 09/19/20 16:56 Flush - Normal Saline 10 Ml Syringe IVF 10 ml PRN PRN Administration Saline Flush Warfarin Sodium 5 mg 09/26/20 17:00 09/26/20 16:15 Warfarin Sodium 5 Mg Tab PO 5 mg 1700 MAHSA Administration - Exam General Appearance: NAD, awake alert Eye: PERRL ENT: normocephalic atraumatic Neck: supple Heart: RRR, normal peripheral pulses Respiratory: CTAB, normal chest expansion Gastrointestinal: soft, normal bowel sounds Neurological: cranial nerve grossly intact, no focal deficits Musculoskeletal: generalized weakness Psychiatric: A&O x 3 Hosp A/P - Plan 65 years old gentleman who was transferred from [facility], who presented with right upper quadrant pain. Further workup showed elevated LFTs, and HIDA scan findings consistent with acute cholecystitis. Acute Cholecystitis --s/p lap reva, complicated with post op bleed, now s/p ex lap with evac --cont routine post op mgt as per surgery. Diet advanced per surgery. --rpt Hb stable. [facility] with RVR --rate uncontrolled after procedures, required Cardizem gtt, ------- discontinued the Cardizem drip -Started him on scheduled Cardizem -INR is still subtherapeutic. -Quested to the pharmacy to adjust the Coumadin dose. Supratherapeutic INR - s/p reversal with Vit K Volume overload from blood transfusion/volume resuscitation for hypotensive episode/post op bleeding --has audible wheezes on exam. cont nebs treatment. --start IV diuresis. Echo showed preserved EF. Acute blood loss anemia --s/p 2U PRBC, Hb stable Elevated LFT --as above. LFT normalized Morbid Obesity with BMI 53 --Aggressive lifestyle modification is recommended --Okay to restart the Coumadin, per surgery -WBC is coming down. Mild hyponatremia with a sodium 133. LFTs are trending down. Like to see Coumadin close to therapeutic range. A. fib is controlled with the scheduled Cardizem ---> will switch that to once daily long-acting, likely tomorrow. Once this is achieved then possible discharge home with home health along with wound care.
[2020-09-26] MEDS ORDERED: Warfarin Sodium 5 MG TAB PO SCH (17:00)
[2020-09-26] MEDS: Lisinopril 2.5 MG TAB PO SCH (21:15)
[2020-09-26] MEDS: Senokot S 8.6-50 MG TAB PO SCH (21:15)
[2020-09-27] MEDS: Piperacillin/Tazobactam 3.375 GM in Sodium Chloride 0.9% 100 ML IVPB SCH ×4 (02:34→20:22)
[2020-09-27] MEDS: Morphine 4 MG/ML VIAL SLOW IVP PRN ×2 (02:34→08:50)
[2020-09-27 04:11] LABS: INR-International Normal Ratio 1.1; Prothrombin Time 14.2 sec (12.0-14.7)
[2020-09-27 04:12] LABS: #Eosinphils 0.8 thou/uL (0.0-0.7); #Lymphocytes 3.2 thou/uL (1.20-3.40); #Monocytes 1.3 thou/uL (0.11-0.59); #Neutrophils 13.3 thou/uL (1.40-6.50); %Basophils 0.2 % (0.0-1.0); %Eosinophils 4.1 % (0.0-10.0); %Monocytes 7.2 % (0.0-10.0); %Neutrophils 71.5 % (42.0-75.0); Hemoglobin 10.9 g/dL (14.0-18.0); Mean Corpuscular HGB CONC 33.4 g/dL (32.0-36.0); Mean Corpuscular Hemoglobin 31.4 pg (27.0-31.0); Mean Corpuscular Volume 94.1 fL (78.0-98.0); Mean Platelet Volume 7.7 fL (7.4-10.4); PTT 32.5 sec (22.9-36.1); Platelet Count 388 thou/uL (130-400); RBC Distribution Width 14.3 % (11.5-14.5); Red Blood Cell (RBC) Count 3.46 mill/uL (4.70-6.10); White Blood Cell (WBC) Count 18.6 thou/uL (4.8-10.8)
[2020-09-27 04:28] LABS: Anion Gap 14 mmol/L (10-20); BUN (Urea Nitrogen) 12 mg/dL (8.4-25.7); Calc. Creatinine Clearance 277 mL/min (70-130); Calcium 8.3 mg/dL (7.8-10.44); Carbon Dioxide 24 mmol/L (23-31); Chloride 98 mmol/L (98-107); Glucose 127 mg/dL (80-115); Potassium 4.5 mmol/L (3.5-5.1); Sodium 131 mmol/L (136-145)
[2020-09-27] MEDS: Mometasone 200 MCG/Formoterol 5 MCG 120 PUFF INHALER INH SCH ×2 (07:36→19:10)
[2020-09-27] MEDS: Metoprolol Tartrate 25 MG TAB PO SCH ×2 (08:51→20:21)
[2020-09-27] MEDS: Famotidine/PF 20 mg/2ml Vial SLOW IVP SCH (08:51)
[2020-09-27] MEDS: Senokot S 8.6-50 MG TAB PO SCH ×2 (08:51→20:21)
[2020-09-27] MEDS ORDERED: Iopamidol 370 76% 100 ML VIAL ONE (09:13)
[2020-09-27] MEDS ORDERED: Morphine 4 MG/ML VIAL SLOW IVP PRN (10:52)
--- NOTE | 2020-09-27 10:53 | PRG ---
DATE OF SERVICE: 09/27/2020 SUBJECTIVE: This morning, he is doing better, breathing kim, but is having significant abdominal pain. OBJECTIVE: VITAL SIGNS: Temperature 98, pulse 72, saturations 97% on room air, respirations 17, blood pressure 115/60. CHEST: No wheezing. No crackles. CARDIAC: Normal S1 and S2. No gallops. ABDOMEN: No masses. ASSESSMENT: Status post laparoscopic cholecystectomy, intraoperative bleeding, morbid obesity, sleep apnea. PLAN: Concern about his significant pain, but his vital signs are stable. Await input from Surgery. Pulmonary is going to follow up. Job ID: [id number]
[2020-09-27] MEDS ORDERED: Acetaminophen/Codeine 30-300mg Tablet PO PRN (10:54)
[2020-09-27] MEDS ORDERED: traMADol HCl 50 MG TAB PO PRN (10:59)
[2020-09-27 11:40] LABS: ALT (SGPT) 33 U/L (8-55); AST (SGOT) 32 U/L (5-34); Albumin 3.8 g/dL (3.4-4.8); Alkaline Phosphatase 104 U/L (40-110); Bilirubin, Direct 1.1 mg/dL (0.1-0.3); Bilirubin, Total 2.1 mg/dL (0.2-1.2); Magnesium 1.9 mg/dL (1.6-2.6); Protein, Total 7.8 g/dL (5.8-8.1)
--- NOTE | 2020-09-27 11:40 | PQF ---
CLINICAL DOCUMENTATION CLARIFICATION FORM: Dear Dr. Lynn Date: 09/27/2020 Please exercise your independent, professional judgment in responding to the clarification form. Clinical indicators are provided on the bottom of this form for your review. Please check appropriate box(es): HEART FAILURE ACUITY: [ ] Acute diastolic CHF [ x ] Acute on Chronic diastolic CHF [ ] Chronic diastolic CHF [ ] Other diagnosis [ ] Unable to determine In addition, please specify: Present on Admission (POA): [ ] Yes [ ] No [ ] Unable to determine For continuity of documentation, please document condition throughout progress notes and discharge summary. Thank You. To be completed by CDI/Coding staff for physician review: CLINICAL INDICATORS - SIGNS / SYMPTOMS / LABS / RESULTS AND LOCATION IN EMR *09/21 Consult (Jenaro): PMH: Congestive heart failure-diastolic. ROS: Has some SOB. VS: O2 sat 94% on 3L Lab Data: Echo demonstrates EF 55% to 60% *09/22 pn (Francesco) A/P: Volume overload from blood transfusion/volume resuscitation for hypotensive episode/post op bleeding -has audible wheezes on exam Echo showed preserved EF RISKS FACTORS / RESULTS AND LOCATION IN EMR *09/15: H&P: (Dennis) PMH CHF. Chronic A fib. A/P: Acute cholecystitis. *09/21 Consult (Jenaro): PMH: Congestive heart failure-diastolic. *09/22 pn (Marimar) Impression: Respiratory failure, morbid obesity, severe sleep apnea on auto bilevel at home, s/p post laparoscopic cholecystectomy followed by re-exploration for bleed. TREATMENTS / RESULTS AND LOCATION IN EMR *09/22 pn (Francesco) A/P cont. nebs treatment. start IV diuresis. *Order 09/22: Lasix 40 mg slow IVP now. *Order 09/22-09/25: Lasix 40 mg slow IVP daily. Thank you, Marquita Carvajal RN, [email or web address] This is a permanent part of the Medical Record [facility]
[2020-09-27] MEDS: Acetaminophen/Codeine 30-300mg Tablet PO PRN (11:41)
[2020-09-27] MEDS: Acetaminophen 325 MG TAB PO SCH ×2 (11:52→17:55)
[2020-09-27 13:20] LABS: Lactic Acid 1.6 mmol/L (0.5-2.2)
--- NOTE | 2020-09-27 13:25 | CT ---
CT ABDOMEN AND PELVIS WITH IV CONTRAST 09/27/2020 CLINICAL INFORMATION: History of abdominal surgery. Increased blood cell count. COMPARISON: 09/13/2020 Technique: Multiple contiguous axial CT images are obtained through the abdomen and pelvis with IV contrast. Cor onal reformatted images are provided. FINDINGS: Lower Chest: Trace left and small right pleural effusions with consolidation at each lung base probab ly attributable to passive atelectasis. There is mild elevation of the right hemidiaphragm. Vessels: Abdominal aorta is normal in caliber. Abdomen: Portal vein:Patent Gallbladder: Surgically absent. Minimal amount of fluid is seen in the region of the gallbladder [place] a without fluid collection present. Liver: within normal limits. Spleen: within normal limits. Pancreas: within normal limits. Adrenals: within normal limits. Kidneys: within normal limits. Bowel: Normal caliber. Appendix: The appendix is visualized and normal in caliber. Peritoneum: Small amount of free fluid is seen in the abdomen and pelvis with greater amount in the p [place]. Some of fluid in the pelvis demonstrates increased density which suggesting hemorrhage. No fluid collection is seen in the abdomen or pelvis to suggest abscess collection. Mesentery and Retroperitoneum: No enlarged mesenteric or retroperitoneal lymph nodes. Abdominal Wall: Inflammatory stranding seen ventral abdominal wall with a tiny midline defect seen in the mid abdomen which may represent tiny fat-containing ventral abdominal wall hernia. No fluid collection is seen in the subcutaneous soft tissues of the abdomen. Skin clips are seen in the right anterior abdomen. Pelvis: Reproductive Organs: No pelvic masses. Bladder: within normal limits. Bones: Degenerative changes in the thoracic and lumbar spine with what appears to be a hemangioma in the T10 vertebral body. Sclerotic density is again seen in the right femoral head neck junction likely due to bone island. IMPRESSION: 1. Small amount of free fluid in the abdomen and pelvis with slightly increased density fluid in the pelvis suggestive of hemorrhage. 2. Small right and trace left pleural effusions. Bibasilar areas of consolidation are seen likely att ributable to atelectasis. Developing pneumonia would be difficult to exclude. 3. Postoperative changes related to cholecystectomy. Trace amount of fluid is seen in the gallbladder fossa. There is no discrete fluid collection in the abdomen or pelvis. 4. Postoperative changes anterior abdominal wall.
[2020-09-27] MEDS ORDERED: Potassium Chloride 40 MEQ in Sodium Chloride 0.9% 250 ML 250 ML IVPB SCH (13:30)
[2020-09-27] MEDS: NS 0.9% w/ 40 MEQ KCL 100 ML IV SCH ×2 (14:53→14:54)
--- NOTE | 2020-09-27 16:21 | PDOC.HOSPP ---
- Subjective Encounter Date: 09/27/20 Encounter Time: 11:10 Subjective: Patient seen he is a quite miserable with his abdominal discomfort. Patient did had a bowel movement this morning. Stat lactic acid insignificant he did had elevated leukocytosis. - Objective Vital Signs & Weight: Vital Signs (12 hours) Temp Pulse Resp BP Pulse Ox 09/27/20 11:52 101.7 F H 09/27/20 11:47 97.5 F L 80 17 112/62 95 09/27/20 07:10 98.0 F 82 17 115/60 97 Weight Admit Weight 370 lb 3.2 oz Weight 364 lb 6.4 oz Most Recent Monitor Data Heart Rate from ECG 84 NIBP 137/93 NIBP BP-Mean 107 Respiration from ECG 20 SpO2 97 I&O: 09/26/20 09/27/20 09/28/20 06:59 06:59 06:59 Intake Total 1700 2346 Output Total 3122 3140 Balance -1029 -429 Result Diagrams: 09/27/20 03:22 09/27/20 03:22 Hospitalist ROS - Medication Medications: Active Medications Generic Name Dose Route Start Last Admin Trade Name Freq PRN Reason Stop Dose Admin Acetaminophen 325 mg 09/27/20 12:00 09/27/20 11:52 Acetaminophen 325 Mg Tab PO 325 mg Q6HR MAHSA Administration Acetaminophen/Codeine Phosphate 2 tab 09/27/20 10:54 09/27/20 11:41 Acetaminophen/Codeine 30-300mg Tablet PO 2 tab Q6H PRN Administration Severe Pain (7-10) Al Hydroxide/Mg Hydroxide 15 ml 09/20/20 13:33 09/22/20 14:04 Mag-Al 1200 Mg/1200 Mg/30 Ml Udcup PO 15 ml Q6H PRN Administration Dyspepsia Albuterol/Ipratropium 3 ml 09/19/20 19:00 09/27/20 13:27 Ipratropium/Albuterol Sulfate 3 Ml Neb NEB 3 ml [id number] MAHSA Administration Diltiazem HCl 60 mg 09/25/20 21:00 09/27/20 14:39 Diltiazem Hcl 30 Mg Tablet PO 60 mg TID MAHSA Administration Piperacillin Sod/Tazobactam 100 mls @ 200 mls/hr 09/26/20 14:00 09/27/20 14:40 Sod 3.375 gm/ Sodium Chloride IVPB 100 mls 0200,0800,1400,2000 MAHSA Administration Potassium Chloride 40 meq/ 270 mls @ 67.5 mls/hr 09/27/20 13:30 09/27/20 14:39 Sodium Chloride IVPB 09/27/20 17:29 270 mls NOW MAHSA Administration Lisinopril 2.5 mg 09/18/20 21:00 09/26/20 21:15 Lisinopril 2.5 Mg Tab PO 2.5 mg HS MAHSA Administration Magnesium Hydroxide 30 ml 09/25/20 16:50 09/26/20 08:07 Milk Of Magnesia 30 Ml Udcup PO 30 ml DAILYPRN PRN Administration Constipation Metoprolol Tartrate 25 mg 09/16/20 21:00 09/27/20 08:51 Metoprolol Tartrate 25 Mg Tab PO 25 mg BID MAHSA Administration Mometasone Furoate/Formoterol Fumar 2 puff 09/17/20 06:30 09/27/20 07:36 Mometasone 200 Mcg/Formoterol 5 Mcg 120 Puff Inhaler INH 2 puff BID-RT MAHSA Administration Ondansetron HCl 4 mg 09/20/20 13:33 09/20/20 21:59 Ondansetron Pf 4 Mg/2 Ml Vial IVP 4 mg Q6H PRN Administration Nausea/Vomiting Senna/Docusate Sodium 2 tab 09/26/20 21:00 09/27/20 08:51 Senokot S 8.6-50 Mg Tab PO 2 tab BID MAHSA Administration Sodium Chloride 10 ml 09/16/20 09:00 09/27/20 08:52 Flush - Normal Saline 10 Ml Syringe IVF 10 ml Q12HR MAHSA Administration Sodium Chloride 10 ml 09/16/20 06:45 09/19/20 16:56 Flush - Normal Saline 10 Ml Syringe IVF 10 ml PRN PRN Administration Saline Flush - Exam General Appearance: awake alert, ill appearing Eye: PERRL ENT: normocephalic atraumatic Neck: supple Heart: RRR, normal peripheral pulses Respiratory: CTAB, normal chest expansion Gastrointestinal: soft, normal bowel sounds Neurological: cranial nerve grossly intact, no focal deficits Psychiatric: A&O x 3 Hosp A/P - Plan 65 years old gentleman who was transferred from [facility], who presented with right upper quadrant pain. Further workup showed elevated LFTs, and HIDA scan findings consistent with acute cholecystitis. Acute Cholecystitis --s/p lap reva, complicated with post op bleed, now s/p ex lap with evac --cont routine post op mgt as per surgery. Diet advanced per surgery. --rpt Hb stable. [facility] --rate uncontrolled after procedures, required Cardizem gtt, ------- discontinued the Cardizem drip -Started him on scheduled Cardizem -INR is still subtherapeutic. -Quested to the pharmacy to adjust the Coumadin dose. Supratherapeutic INR - s/p reversal with Vit K Volume overload from blood transfusion/volume resuscitation for hypotensive episode/post op bleeding --has audible wheezes on exam. cont nebs treatment. --start IV diuresis. Echo showed preserved EF. Acute blood loss anemia --s/p 2U PRBC, Hb stable Elevated LFT --as above. LFT normalized Morbid Obesity with BMI 53 --Aggressive lifestyle modification is recommended --Okay to restart the Coumadin, per surgery -WBC is coming down. Mild hyponatremia with a sodium 133. LFTs are trending down. Like to see Coumadin close to therapeutic range. A. fib is controlled with the scheduled Cardizem ---> will switch that to once daily long-acting, likely tomorrow. 16th Abdominal pain, temperature and leukocytosis -Is tolerating his p.o. intake and he did had a bowel movement this morning. However given his elevated leukocytosis we did the CT scan which showed Small amount of free fluid in the abdomen and pelvis suggesting possible hemorrhage - trace left pleural effusion and atelectasis in the left base -Patient already getting Zosyn for the last several days. continue the same. -LFTs remains in the normal range -Last blood culture done on September 20 -ve for any growth. To the rehab when medically stable
--- NOTE | 2020-09-27 17:00 | PRG ---
DATE OF SERVICE: 09/27/2020 SUBJECTIVE: The patient was seen this morning during rounds. He was sitting up in bed. He did not appear to be in any distress, but reported that he was having abdominal pain. The patient is intermittently getting [place] and morphine, but not on a scheduled regular basis. He has not been out of bed and sitting up into a chair. He has sat up at the edge of the bed and ambulated a little bit with physical therapy. He tolerates a regular diet, had a large breakfast this morning, had a bowel movement yesterday. The patient reports he is feeling like he is going to have another bowel movement today. Abdomen although is painful, is not very tender on examination. Midline and subcostal incisions are clean, dry, and intact with no signs of infection. OBJECTIVE: VITAL SIGNS: Temperature 98.0, pulse 82, respirations 17, oxygen saturation 97% on room air, blood pressure 115/60. GENERAL: Well-appearing elderly male, sitting up in bed with no signs of acute distress. PULMONARY: Equal chest rise and fall. Clear breath sounds bilaterally and diminished at the bases with no signs of acute respiratory distress. CARDIAC: Irregular rhythm but not tachycardic. No murmurs, gallops, or rubs. GI: Abdomen is soft, appropriately tender to palpation and distended as baseline. His midline and right subcostal incisions are clean, dry, and intact with nae in place. There is no discharge or concern for infection. EXTREMITIES: 2+ pulses in all extremities. Gross motor and sensation intact. No significant swelling noted. NEUROLOGIC: GCS is 15. LABORATORY FINDINGS: White count 18.6, hemoglobin 10.9, hematocrit 32.6, platelets 388. Sodium 131, potassium 4.5, chloride 98, bicarb 24, BUN 12, creatinine 0.66, glucose 127, magnesium 1.9. Total bilirubin 2.1, direct bilirubin 1.1, AST 32, ALT 33, alkaline phosphatase 104. DIAGNOSTIC FINDINGS: CT scan of the abdomen and pelvis completed as ordered by the hospitalist demonstrates a small amount of free fluid in the abdomen and pelvis with slightly increased density fluid in the pelvis is suggestive of hemorrhage. Small right and trace left pleural effusions, bibasilar area of consolidation are seen likely contributing to atelectasis, developing pneumonia would be difficult to exclude. Postoperative changes related to cholecystectomy. Trace amount of fluid is seen in the gallbladder fossa. There is no discrete fluid collection in the abdomen or pelvis. Postoperative changes, anterior abdominal wall. ASSESSMENT: Postop day 7, status post open cholecystectomy and postop day 6 status post exploratory laparotomy and control of venous abdominal hemorrhage by Dr. Rico. RECOMMENDATIONS: Continue current diet. We will change the patient's pain regimen. We will add Tylenol 3 p.r.n. for pain. We will keep the patient's morphine but decrease the frequency. I do believe he is having pain, but he has no signs of peritonitis. There is no concern for hemorrhage. His vital signs are stable and his hemoglobin has increased from 9.9 to 10.9. The patient is developing some atelectasis and possibly working on pneumonia given that he does not get up out of bed and sit in the chair. I spoke with the nurse and the patient is to be up out of bed and into a chair sitting up as much as tolerated. Also, he is to complete incentive spirometry q.1 hour while awake. This has also been explained to the nurses. I did review the patient's CT scan and clinical picture with Dr. Torres, who is in agreement that there is no concern for intraabdominal process at this time. The Trauma Surgery will continue to follow the patient while Dr. Rico is unavailable. If there is any new concerns, please contact the Trauma Team. This patient was discussed with Dr. Torres before this dictation. Job ID: [id number]
--- NOTE | 2020-09-27 18:00 | RAD ---
Chest AP view INDICATION: History of high white blood cell count COMPARISON: May 30, 2020 FINDINGS: Lungs: There is mild pleural parenchymal opacity involving the right lung base. There is subsegmenta l volume loss involving the left lung base. Cardiac silhouette: There is mild cardiomegaly which is stable. Pulmonary vasculature: Mild pulmonary vascular congestion is stable. Pleural spaces: There are small suspected bilateral pleural effusions Upper abdomen: No abnormality seen. Osseous structures: No acute osseous abnormality. Additional findings: None. IMPRESSION: Findings suspicious for mild volume overload or CHF. Mild pleural parenchymal opacity of the right lower lobe may reflect comminution pleural effusion wit h atelectasis; however, component pneumonia is not excluded. Mild subsegmental volume loss of the left lung base.
[2020-09-27] MEDS: Lisinopril 2.5 MG TAB PO SCH (20:21)
[2020-09-27] MEDS: Famotidine 20 MG TAB PO SCH (20:21)
[2020-09-28] MEDS: Piperacillin/Tazobactam 3.375 GM in Sodium Chloride 0.9% 100 ML IVPB SCH ×4 (00:48→21:10)
[2020-09-28] MEDS: Acetaminophen 325 MG TAB PO SCH ×5 (00:48→22:07)
[2020-09-28 04:35] LABS: #Eosinphils 0.4 thou/uL (0.0-0.7); #Lymphocytes 2.9 thou/uL (1.20-3.40); #Monocytes 1.4 thou/uL (0.11-0.59); %Basophils 0.2 % (0.0-1.0); %Eosinophils 2.5 % (0.0-10.0); %Lymphocytes 16.5 % (21.0-51.0); %Monocytes 7.9 % (0.0-10.0); Mean Corpuscular HGB CONC 32.8 g/dL (32.0-36.0); Mean Corpuscular Hemoglobin 30.3 pg (27.0-31.0); Mean Corpuscular Volume 92.6 fL (78.0-98.0); Mean Platelet Volume 6.3 fL (7.4-10.4); Platelet Count 399 thou/uL (130-400); RBC Distribution Width 14.1 % (11.5-14.5); Red Blood Cell (RBC) Count 3.63 mill/uL (4.70-6.10); White Blood Cell (WBC) Count 17.8 thou/uL (4.8-10.8)
[2020-09-28 04:50] LABS: INR-International Normal Ratio 1.2; PTT 37.2 sec (22.9-36.1)
[2020-09-28] MEDS: HYDROcodone/Acetaminophen 10/325 mg Tablet PO PRN ×2 (04:55→18:00)
[2020-09-28 05:01] LABS: ALT (SGPT) 27 U/L (8-55); AST (SGOT) 24 U/L (5-34); Albumin 3.2 g/dL (3.4-4.8); Alkaline Phosphatase 92 U/L (40-110); Anion Gap 12 mmol/L (10-20); BUN (Urea Nitrogen) 13 mg/dL (8.4-25.7); Bilirubin, Direct 0.9 mg/dL (0.1-0.3); Bilirubin, Total 1.8 mg/dL (0.2-1.2); Calc. Creatinine Clearance 281 mL/min (70-130); Calcium 8.3 mg/dL (7.8-10.44); Carbon Dioxide 24 mmol/L (23-31); Chloride 100 mmol/L (98-107); Glucose 117 mg/dL (80-115); Potassium 4.3 mmol/L (3.5-5.1); Protein, Total 6.6 g/dL (5.8-8.1); Sodium 132 mmol/L (136-145)
[2020-09-28] MEDS: Mometasone 200 MCG/Formoterol 5 MCG 120 PUFF INHALER INH SCH ×2 (07:32→18:39)
[2020-09-28] MEDS: Famotidine 20 MG TAB PO SCH ×2 (08:53→21:09)
[2020-09-28] MEDS: Senokot S 8.6-50 MG TAB PO SCH ×2 (08:54→21:10)
[2020-09-28] MEDS: Metoprolol Tartrate 25 MG TAB PO SCH ×2 (08:54→21:10)
[2020-09-28] MEDS: Sodium Chloride 0.9% 1,000 ML IV SCH ×2 (09:45→22:07)
--- NOTE | 2020-09-28 10:46 | PRG ---
DATE OF SERVICE: 09/28/2020 SUBJECTIVE: Naman Romero is a 65-year-old gentleman, status post lap. He is doing well. Less short of breath and less abdominal pain. OBJECTIVE: VITAL SIGNS: Temperature 97.0, pulse rate 80, respirations are 16, saturations 90% on room air, blood pressure 120/65. CHEST: No wheezing. No crackles. CARDIAC: Normal S1 and S2. . Unremarkable. IMPRESSION: 1. Status post postop bleeding. 2. Morbid obesity, sleep apnea, and severe deconditioning. Pulmonary kim, he is stable enough to be discharged home any time. Follow up in the office at a later time. Job ID: [id number]
[2020-09-28] MEDS: Acetaminophen/Codeine 30-300mg Tablet PO PRN ×2 (12:04→22:08)
--- NOTE | 2020-09-28 13:45 | PDOC.HOSPP ---
- Subjective Encounter Date: 09/28/20 Encounter Time: 10:15 Subjective: Patient appears comfortable he is sitting in the chair. He still has some discomfort with abdomen but much better than yesterday. Discharge plan for rehab options discussed and the he is waiting to hear from the case supervisor. - Objective Vital Signs & Weight: Vital Signs (12 hours) Temp Pulse Resp BP BP Pulse Ox 09/28/20 12:00 97.8 F 83 24 H 102/63 95 09/28/20 08:42 85 128/65 09/28/20 07:51 97.6 F 80 16 116/66 95 09/28/20 04:00 97.1 F L 81 20 126/78 94 L Weight Admit Weight 370 lb 3.2 oz Weight 353 lb Most Recent Monitor Data Heart Rate from ECG 84 NIBP 137/93 NIBP BP-Mean 107 Respiration from ECG 20 SpO2 97 I&O: 09/27/20 09/28/20 09/29/20 06:59 06:59 06:59 Intake Total 2346 1482 Output Total 3140 1725 Balance -794 -243 Result Diagrams: 09/28/20 04:14 09/28/20 04:14 Hospitalist ROS - Medication Medications: Active Medications Generic Name Dose Route Start Last Admin Trade Name Freq PRN Reason Stop Dose Admin Acetaminophen 325 mg 09/27/20 12:00 09/28/20 12:03 Acetaminophen 325 Mg Tab PO Not Given Q6HR [facility] Acetaminophen/Codeine Phosphate 2 tab 09/27/20 10:54 09/28/20 12:04 Acetaminophen/Codeine 30-300mg Tablet PO 2 tab Q6H PRN Administration Severe Pain (7-10) Hydrocodone Bitart/Acetaminophen 2 tab 09/27/20 13:52 09/28/20 04:55 Hydrocodone/Acetaminophen 10/325 Mg Tablet PO 2 tab Q4H PRN Administration .BREAKTHROUGH Pain Al Hydroxide/Mg Hydroxide 15 ml 09/20/20 13:33 09/22/20 14:04 Mag-Al 1200 Mg/1200 Mg/30 Ml Udcup PO 15 ml Q6H PRN Administration Dyspepsia Albuterol/Ipratropium 3 ml 09/19/20 19:00 09/28/20 07:32 Ipratropium/Albuterol Sulfate 3 Ml Neb NEB 3 ml [id number] MAHSA Administration Diltiazem HCl 180 mg 09/28/20 09:00 09/28/20 08:53 Diltiazem Hcl Cd 180 Mg Capsule PO 180 mg DAILY MAHSA Administration Famotidine 20 mg 09/27/20 21:00 09/28/20 08:53 Famotidine 20 Mg Tab PO 20 mg Q12HR MAHSA Administration Piperacillin Sod/Tazobactam 100 mls @ 200 mls/hr 09/26/20 14:00 09/28/20 13:21 Sod 3.375 gm/ Sodium Chloride IVPB 100 mls 0200,0800,1400,2000 MAHSA Administration Sodium Chloride 1,000 mls @ 75 mls/hr 09/28/20 09:45 09/28/20 09:45 Normal Saline 0.9% IV 1,000 mls .[id number] MAHSA Administration Lisinopril 2.5 mg 09/18/20 21:00 09/27/20 20:21 Lisinopril 2.5 Mg Tab PO 2.5 mg HS MAHSA Administration Magnesium Hydroxide 30 ml 09/25/20 16:50 09/26/20 08:07 Milk Of Magnesia 30 Ml Udcup PO 30 ml DAILYPRN PRN Administration Constipation Metoprolol Tartrate 25 mg 09/16/20 21:00 09/28/20 08:54 Metoprolol Tartrate 25 Mg Tab PO 25 mg BID MAHSA Administration Mometasone Furoate/Formoterol Fumar 2 puff 09/17/20 06:30 09/28/20 07:32 Mometasone 200 Mcg/Formoterol 5 Mcg 120 Puff Inhaler INH 2 puff BID-RT MAHSA Administration Morphine Sulfate 4 mg 09/27/20 10:52 09/28/20 08:48 Morphine 4 Mg/Ml Vial SLOW IVP 4 mg Q4H PRN Administration Breakthrough Pain Ondansetron HCl 4 mg 09/20/20 13:33 09/20/20 21:59 Ondansetron Pf 4 Mg/2 Ml Vial IVP 4 mg Q6H PRN Administration Nausea/Vomiting Senna/Docusate Sodium 2 tab 09/26/20 21:00 09/28/20 08:54 Senokot S 8.6-50 Mg Tab PO Not Given BID MAHSA Sodium Chloride 10 ml 09/16/20 09:00 12/17/20 08:54 Flush - Normal Saline 10 Ml Syringe IVF 10 ml Q12HR MAHSA Administration Sodium Chloride 10 ml 09/16/20 06:45 09/19/20 16:56 Flush - Normal Saline 10 Ml Syringe IVF 10 ml PRN PRN Administration Saline Flush - Exam General Appearance: NAD, awake alert Eye: PERRL ENT: normocephalic atraumatic Neck: supple Heart: RRR, normal peripheral pulses Respiratory: CTAB, normal chest expansion Gastrointestinal: soft, normal bowel sounds Neurological: cranial nerve grossly intact, no focal deficits Psychiatric: normal affect, normal behavior, A&O x 3 Hosp A/P - Plan 65 years old gentleman who was transferred from [facility], who presented with right upper quadrant pain. Further workup showed elevated LFTs, and HIDA scan findings consistent with acute cholecystitis. Acute Cholecystitis --s/p lap reva, complicated with post op bleed, now s/p ex lap with evac --cont routine post op mgt as per surgery. Diet advanced per surgery. --rpt Hb stable. Transfer to [facility] with RVR --rate uncontrolled after procedures, required Cardizem gtt, ------- discontinued the Cardizem drip -Started him on scheduled Cardizem -INR is still subtherapeutic. -Quested to the pharmacy to adjust the Coumadin dose. Supratherapeutic INR - s/p reversal with Vit K Volume overload from blood transfusion/volume resuscitation for hypotensive episode/post op bleeding --has audible wheezes on exam. cont nebs treatment. --start IV diuresis. Echo showed preserved EF. Acute blood loss anemia --s/p 2U PRBC, Hb stable Elevated LFT --as above. LFT normalized Morbid Obesity with BMI 53 --Aggressive lifestyle modification is recommended --Okay to restart the Coumadin, per surgery -WBC is coming down. Mild hyponatremia with a sodium 133. LFTs are trending down. Like to see Coumadin close to therapeutic range. A. fib is controlled with the scheduled Cardizem ---> will switch that to once daily long-acting, likely tomorrow. 16th Abdominal pain, temperature and leukocytosis -Is tolerating his p.o. intake and he did had a bowel movement this morning. However given his elevated leukocytosis we did the CT scan which showed Small amount of free fluid in the abdomen and pelvis suggesting possible hemorrhage - trace left pleural effusion and atelectasis in the left base -Patient already getting Zosyn for the last several days. continue the same. -LFTs remains in the normal range -Last blood culture done on September 20 -ve for any growth. 17th White count trending down but still significant enough that we need to continue with Zosyn. -Holding his Coumadin given the CT findings. --Appreciate if surgery clears him again to restart anticoagulation To the rehab when medically stable and surgery clears him.
--- NOTE | 2020-09-28 20:16 | PRG ---
DATE OF SERVICE: 09/28/2020 SUBJECTIVE: The patient was seen this morning during rounds. He was sitting up in the chair with no signs of acute distress. He reported that he is feeling much better today. His pain is better controlled. He had a large bowel movement overnight. Generally, his mental clarity and mood have much improved. OBJECTIVE: VITAL SIGNS: Temperature 97.1, pulse 81, respirations 20, oxygen saturation 94% on room air, blood pressure 126/78. GENERAL: Well-appearing elderly male, sitting up in a chair with no signs of acute distress. PULMONARY: Equal chest rise and fall. No signs of acute respiratory distress. CARDIAC: Regular rate and rhythm. GASTROINTESTINAL: Abdomen is soft, nontender, and nondistended. Midline and right subcostal wounds are clean, dry, and intact with no signs of infection. EXTREMITIES: 2+ pulses in all extremities. Gross motor and sensation are intact. No significant swelling noted. NEUROLOGIC: GCS is 15. LABORATORY FINDINGS: White count 17.8, hemoglobin 11.0, hematocrit 33.7, platelets 399. Sodium 132, potassium 4.3, chloride 100, bicarb 24, BUN 13, creatinine 0.63, glucose 117, total bilirubin 1.8, diuretic bilirubin 0.9, AST 24, ALT 27, alkaline phosphatase 92. DIAGNOSTIC FINDINGS: There are no new diagnostic findings to report. ASSESSMENT: Postoperative day #8 and #9, status post open cholecystectomy and exploratory laparotomy for control of venous bleeding due to acute cholecystitis. PLAN: Continue current diet and pain regimen. Continue physical and occupational therapy. Continue aggressive pulmonary hygiene with incentive spirometry. The patient to be up out of bed and sitting up in the recliner as much as possible. Trauma will continue to evaluate the patient while Dr. Rico is unavailable. If there are any new concerns, please contact the Trauma team. This patient was seen and evaluated by Dr. Torres and myself this morning during rounds. Job ID: [id number]
[2020-09-28] MEDS: Lisinopril 2.5 MG TAB PO SCH (21:09)
[2020-09-29] MEDS: Piperacillin/Tazobactam 3.375 GM in Sodium Chloride 0.9% 100 ML IVPB SCH ×4 (02:26→19:56)
[2020-09-29 04:49] LABS: #Eosinphils 0.6 thou/uL (0.0-0.7); #Lymphocytes 2.6 thou/uL (1.20-3.40); #Monocytes 1.2 thou/uL (0.11-0.59); #Neutrophils 10.7 thou/uL (1.40-6.50); %Basophils 0.2 % (0.0-1.0); %Eosinophils 4.2 % (0.0-10.0); %Lymphocytes 17.2 % (21.0-51.0); %Monocytes 7.9 % (0.0-10.0); %Neutrophils 70.6 % (42.0-75.0); Hemoglobin 10.9 g/dL (14.0-18.0); Mean Corpuscular HGB CONC 33.3 g/dL (32.0-36.0); Mean Corpuscular Hemoglobin 31.6 pg (27.0-31.0); Mean Corpuscular Volume 94.9 fL (78.0-98.0); Mean Platelet Volume 6.4 fL (7.4-10.4); Platelet Count 372 thou/uL (130-400); Red Blood Cell (RBC) Count 3.45 mill/uL (4.70-6.10); White Blood Cell (WBC) Count 15.1 thou/uL (4.8-10.8)
[2020-09-29 04:50] LABS: INR-International Normal Ratio 1.1; PTT 36.7 sec (22.9-36.1); Prothrombin Time 14.8 sec (12.0-14.7)
[2020-09-29 05:04] LABS: Anion Gap 12 mmol/L (10-20); BUN (Urea Nitrogen) 12 mg/dL (8.4-25.7); Calc. Creatinine Clearance 276 mL/min (70-130); Calcium 8.2 mg/dL (7.8-10.44); Carbon Dioxide 25 mmol/L (23-31); Chloride 100 mmol/L (98-107); Glucose 105 mg/dL (80-115); Sodium 133 mmol/L (136-145)
[2020-09-29] MEDS: HYDROcodone/Acetaminophen 10/325 mg Tablet PO PRN ×2 (05:18→22:07)
[2020-09-29] MEDS: Acetaminophen 325 MG TAB PO SCH ×3 (06:03→17:12)
[2020-09-29] MEDS ORDERED: Warfarin Sodium 5 MG TAB PO SCH ×2 (09:00→17:00)
[2020-09-29] MEDS: Famotidine 20 MG TAB PO SCH ×2 (09:04→19:55)
[2020-09-29] MEDS: Mometasone 200 MCG/Formoterol 5 MCG 120 PUFF INHALER INH SCH ×2 (09:05→19:16)
[2020-09-29] MEDS: Senokot S 8.6-50 MG TAB PO SCH (09:05)
[2020-09-29] MEDS: Metoprolol Tartrate 25 MG TAB PO SCH (09:51)
[2020-09-29] MEDS: Acetaminophen/Codeine 30-300mg Tablet PO PRN ×2 (10:19→17:08)
--- NOTE | 2020-09-29 10:28 | PRG ---
DATE OF SERVICE: 09/29/2020 SUBJECTIVE: Naman Romero did well this morning. OBJECTIVE: VITAL SIGNS: His temperature is 98, pulse 76, respirations 16, saturations 90% on room air, blood pressure 116/60. CHEST: No wheezing. No crackles. CARDIAC: Normal S1 and S2. No gallops. ABDOMEN: No masses. LABORATORY DATA: Unremarkable. IMPRESSION: 1. Status post laparoscopic cholecystectomy, postop bleeding. 2. Morbid obesity and sleep apnea. PLAN: time to place him to rehab. He has continued his nocturnal BiPAP. Pulmonary is going to follow at a distance. Please call if needed. Otherwise, he will be seen back in the office at a later time. Job ID: [id number]
[2020-09-29] MEDS ORDERED: Metoprolol Tartrate 25 MG TAB PO SCH (10:48)
[2020-09-29] MEDS ORDERED: Metoprolol Tartrate 50 MG TAB PO SCH (11:00)
--- NOTE | 2020-09-29 12:39 | PRG ---
DATE OF SERVICE: 09/29/2020 SUBJECTIVE: The patient was seen this morning during rounds. He was sitting up in a chair with no signs of acute distress. He reported his pain is much better controlled. He is tolerating his diet. He is working on physical therapy. He ambulated down the entire hallway yesterday and back. He plans to do that again with Physical Therapy today. The wounds are looking good. The patient's overall demeanor has improved as well. OBJECTIVE: VITAL SIGNS: Temperature 98.0, pulse 81, respirations 16, oxygen saturation 95% on room air, blood pressure 116/60. GENERAL: Well-appearing middle-aged male, sitting up in the chair with no signs of acute distress. PULMONARY: Equal chest rise and fall. Clear breath sounds bilaterally. No signs of acute respiratory distress. CARDIAC: Regular rate and rhythm. GASTROINTESTINAL: Abdomen is soft, nontender, and nondistended. Midline and subcostal wounds are clean, dry, and intact with nae in place. EXTREMITIES: 2+ pulses in all extremities. Gross motor sensation is intact. No significant swelling noted. NEUROLOGIC: GCS is 15. LABORATORY FINDINGS: White count 15.1, hemoglobin 10.9, hematocrit 32.7, platelets 372. Sodium 133, potassium 4.0, chloride 100, bicarb 25, BUN 12, creatinine 0.62, glucose 105. DIAGNOSTIC FINDINGS: There are no new diagnostic findings to report. ASSESSMENT: Postoperative day #9 and #10, status post open cholecystectomy and exploratory laparotomy for control of venous bleeding due to acute cholecystitis. PLAN: Continue current diet and pain regimen. Continue physical and occupational therapy. Continue aggressive pulmonary hygiene and incentive spirometry, sitting up in the chair and ambulating as much as possible. The patient is ready for discharge from the standpoint of Surgery. He can follow up with Dr. Rico in 2 weeks. His nae need to be removed 14 days postop. Trauma will continue to follow while Dr. Rico is unavailable. If there are any new concerns, please call the Trauma Team. This patient was discussed with Dr. Torres before this dictation. Job ID: [id number]
--- NOTE | 2020-09-29 13:41 | PDOC.HOSPP ---
- Subjective Encounter Date: 09/29/20 Encounter Time: 10:10 Subjective: His blood pressure is on the low side. He still has a mild leukocytosis though it is trending down. Started him back on Coumadin INR is subtherapeutic. We will adjust the dose as needed. But be cautious given the CT abdominal findings. - Objective Vital Signs & Weight: Vital Signs (12 hours) Temp Pulse Resp BP BP Pulse Ox 09/29/20 11:13 97.9 F 77 16 111/58 L 96 09/29/20 07:51 98.0 F 81 16 116/60 95 09/29/20 04:00 98.8 F 80 20 107/58 L 94 L Weight Admit Weight 370 lb 3.2 oz Weight 359 lb Most Recent Monitor Data Heart Rate from ECG 84 NIBP 137/93 NIBP BP-Mean 107 Respiration from ECG 20 SpO2 97 I&O: 09/28/20 09/29/20 09/30/20 06:59 06:59 06:59 Intake Total 1482 2468 Output Total 1725 1575 Balance -243 893 Result Diagrams: 09/29/20 04:20 09/29/20 04:20 Hospitalist ROS - Medication Medications: Active Medications Generic Name Dose Route Start Last Admin Trade Name Freq PRN Reason Stop Dose Admin Acetaminophen 325 mg 09/27/20 12:00 09/29/20 11:09 Acetaminophen 325 Mg Tab PO Not Given Q6HR [facility] Acetaminophen/Codeine Phosphate 2 tab 09/27/20 10:54 09/29/20 10:19 Acetaminophen/Codeine 30-300mg Tablet PO 2 tab Q6H PRN Administration Severe Pain (7-10) Hydrocodone Bitart/Acetaminophen 2 tab 09/27/20 13:52 09/29/20 05:18 Hydrocodone/Acetaminophen 10/325 Mg Tablet PO 2 tab Q4H PRN Administration .BREAKTHROUGH Pain Al Hydroxide/Mg Hydroxide 15 ml 09/20/20 13:33 09/22/20 14:04 Mag-Al 1200 Mg/1200 Mg/30 Ml Udcup PO 15 ml Q6H PRN Administration Dyspepsia Albuterol/Ipratropium 3 ml 09/19/20 19:00 09/29/20 09:05 Ipratropium/Albuterol Sulfate 3 Ml Neb NEB Not Given [id number] MAHSA Famotidine 20 mg 09/27/20 21:00 09/29/20 09:04 Famotidine 20 Mg Tab PO 20 mg Q12HR MAHSA Administration Piperacillin Sod/Tazobactam 100 mls @ 200 mls/hr 09/26/20 14:00 09/29/20 13:09 Sod 3.375 gm/ Sodium Chloride IVPB 100 mls 0200,0800,1400,2000 MAHSA Administration Lisinopril 2.5 mg 09/18/20 21:00 09/28/20 21:09 Lisinopril 2.5 Mg Tab PO 2.5 mg HS MAHSA Administration Magnesium Hydroxide 30 ml 09/25/20 16:50 09/26/20 08:07 Milk Of Magnesia 30 Ml Udcup PO 30 ml DAILYPRN PRN Administration Constipation Metoprolol Tartrate 50 mg 09/29/20 11:00 09/29/20 11:17 Metoprolol Tartrate 50 Mg Tab PO 09/29/20 14:00 50 mg NOW MAHSA Administration Mometasone Furoate/Formoterol Fumar 2 puff 09/17/20 06:30 09/29/20 09:05 Mometasone 200 Mcg/Formoterol 5 Mcg 120 Puff Inhaler INH Not Given BID-RT MAHSA Morphine Sulfate 4 mg 09/27/20 10:52 09/28/20 08:48 Morphine 4 Mg/Ml Vial SLOW IVP 4 mg Q4H PRN Administration Breakthrough Pain Ondansetron HCl 4 mg 09/20/20 13:33 09/20/20 21:59 Ondansetron Pf 4 Mg/2 Ml Vial IVP 4 mg Q6H PRN Administration Nausea/Vomiting Sodium Chloride 10 ml 09/16/20 09:00 09/29/20 09:05 Flush - Normal Saline 10 Ml Syringe IVF 10 ml Q12HR MAHSA Administration Sodium Chloride 10 ml 09/16/20 06:45 09/19/20 16:56 Flush - Normal Saline 10 Ml Syringe IVF 10 ml PRN PRN Administration Saline Flush - Exam General Appearance: NAD, awake alert Eye: PERRL ENT: normocephalic atraumatic Neck: supple Heart: RRR Respiratory: CTAB, normal chest expansion Gastrointestinal: soft, normal bowel sounds Neurological: cranial nerve grossly intact, no focal deficits Psychiatric: normal affect, normal behavior, A&O x 3 Hosp A/P - Plan 65 years old gentleman who was transferred from [facility], who presented with right upper quadrant pain. Further workup showed elevated LFTs, and HIDA scan findings consistent with acute cholecystitis. Acute Cholecystitis --s/p lap reva, complicated with post op bleed, now s/p ex lap with evac AFib with RVR --rate uncontrolled after procedures, required Cardizem gtt, ------- discontinue d the Cardizem drip -Started him on scheduled Cardizem -INR is still subtherapeutic. -Quested to the pharmacy to adjust the Coumadin dose. Supratherapeutic INR - s/p reversal with Vit K Volume overload from blood transfusion/volume resuscitation for hypotensive episode/post op bleeding --has audible wheezes on exam. cont nebs treatment. --start IV diuresis. Echo showed preserved EF. Acute blood loss anemia --s/p 2U PRBC, Hb stable Elevated LFT --as above. LFT normalized Morbid Obesity with BMI 53 --Aggressive lifestyle modification is recommended --Okay to restart the Coumadin, per surgery -WBC is coming down. Mild hyponatremia with a sodium 133. LFTs are trending down. Like to see Coumadin close to therapeutic range. A. fib is controlled with the scheduled Cardizem ---> will switch that to once daily long-acting, likely tomorrow. Abdominal pain, temperature and leukocytosis -Is tolerating his p.o. intake and he did had a bowel movement this morning. However given his elevated leukocytosis we did the CT scan which showed Small amount of free fluid in the abdomen and pelvis suggesting possible hemorrhage - trace left pleural effusion and atelectasis in the left base -Patient already getting Zosyn for the last several days. continue the same. -LFTs remains in the normal range -Last blood culture done on September 20 -ve for any growth. 18 White count trending down but still significant enough that we need to continue with Zosyn. --when we are ready to discharge on Friday consider Augmentin if white count is still on the high end. -Holding his Coumadin given the CT findings. -------------> --Surgery is agreeable to restart anticoagulation -Continue to check the daily INR and he may need a little higher dose Coumadin. A. fib and blood pressure on the low side -Also adjusting his blood pressure medications including Cardizem as well as Lopressor. -That needs to be monitored in the next 24 to 48 hours to finalize his blood pressure medications.. ------> he needs to follow-up with Dr. Rico. -Probable discharge to the rehab on Friday provided leukocytosis is resolved and clinically stable.
[2020-09-29] MEDS: Warfarin Sodium 2 MG TAB PO SCH (17:09)
[2020-09-29] MEDS: Metoprolol Tartrate 50 MG TAB PO SCH (19:54)
[2020-09-29] MEDS: Lisinopril 2.5 MG TAB PO SCH (19:54)
[2020-09-30] MEDS: Acetaminophen 325 MG TAB PO SCH ×4 (00:23→18:04)
[2020-09-30] MEDS: Piperacillin/Tazobactam 3.375 GM in Sodium Chloride 0.9% 100 ML IVPB SCH ×4 (01:17→20:58)
[2020-09-30 04:27] LABS: #Basophils 0.1 thou/uL (0.0-0.2); #Eosinphils 0.8 thou/uL (0.0-0.7); #Lymphocytes 3.1 thou/uL (1.20-3.40); #Neutrophils 9.5 thou/uL (1.40-6.50); %Basophils 0.4 % (0.0-1.0); %Eosinophils 5.6 % (0.0-10.0); %Lymphocytes 21.4 % (21.0-51.0); %Monocytes 6.9 % (0.0-10.0); %Neutrophils 65.7 % (42.0-75.0); Hemoglobin 10.5 g/dL (14.0-18.0); Mean Corpuscular HGB CONC 32.5 g/dL (32.0-36.0); Mean Corpuscular Hemoglobin 30.8 pg (27.0-31.0); Mean Corpuscular Volume 94.7 fL (78.0-98.0); Mean Platelet Volume 7.1 fL (7.4-10.4); Platelet Count 381 thou/uL (130-400); RBC Distribution Width 14.2 % (11.5-14.5); White Blood Cell (WBC) Count 14.4 thou/uL (4.8-10.8)
[2020-09-30 04:37] LABS: INR-International Normal Ratio 1.1; PTT 34.5 sec (22.9-36.1); Prothrombin Time 14.4 sec (12.0-14.7)
[2020-09-30 04:51] LABS: Anion Gap 16 mmol/L (10-20); BUN (Urea Nitrogen) 9 mg/dL (8.4-25.7); Calc. Creatinine Clearance 276 mL/min (70-130); Carbon Dioxide 21 mmol/L (23-31); Chloride 103 mmol/L (98-107); Glucose 96 mg/dL (80-115); Potassium 4.1 mmol/L (3.5-5.1); Sodium 136 mmol/L (136-145)
[2020-09-30] MEDS: Acetaminophen/Codeine 30-300mg Tablet PO PRN ×3 (05:44→17:35)
[2020-09-30] MEDS: Mometasone 200 MCG/Formoterol 5 MCG 120 PUFF INHALER INH SCH ×2 (08:18→18:12)
[2020-09-30] MEDS: Famotidine 20 MG TAB PO SCH ×2 (09:00→21:01)
[2020-09-30] MEDS: Metoprolol Tartrate 50 MG TAB PO SCH ×2 (09:00→21:02)
--- NOTE | 2020-09-30 13:30 | PDOC.HOSPP ---
- Subjective Encounter Date: 09/30/20 Encounter Time: 13:28 Subjective: Mr. Romero is a morbidly obese 65-year-old who was admitted to the hospital initially for acute cholecystitis. He has had significant complications following his lap cholecystectomy. He developed postop bleeding and needed to have exploratory laparotomy. This is hospital day #15 but he overall is doing better. He has history of chronic atrial fibrillation and he has had periodic increased ventricular rate. He was evaluated by cardiology and he is appropriately on medications. - Objective Vital Signs & Weight: Vital Signs (12 hours) Temp Pulse Pulse Pulse Resp BP BP 09/30/20 12:00 98.2 F 87 20 09/30/20 10:19 95 101 H 134/94 H 118/67 09/30/20 08:11 83 12 09/30/20 07:33 98.1 F 79 19 09/30/20 03:37 97.6 F 80 16 BP BP BP Pulse Ox Pulse Ox Pulse Ox 09/30/20 12:00 142/82 H 97 09/30/20 10:19 95 93 L 09/30/20 08:11 09/30/20 07:33 116/56 L 94 L 09/30/20 03:37 117/59 L 93 L Weight Admit Weight 370 lb 3.2 oz Weight 359 lb Most Recent Monitor Data Heart Rate from ECG 84 NIBP 137/93 NIBP BP-Mean 107 Respiration from ECG 20 SpO2 97 I&O: 09/29/20 09/30/20 10/01/20 06:59 06:59 06:59 Intake Total 2468 2440 Output Total 1575 1150 Balance 893 1290 Result Diagrams: 09/30/20 03:08 09/30/20 03:08 Radiology Reviewed by me: Yes EKG Reviewed by me: Yes Hospitalist ROS - Review of Systems Constitutional: reports: weakness, malaise Respiratory: reports: shortness of breath Neurological: reports: weakness, numbness - Medication Medications: Active Medications Generic Name Dose Route Start Last Admin Trade Name Freq PRN Reason Stop Dose Admin Acetaminophen 325 mg 09/27/20 12:00 09/30/20 13:09 Acetaminophen 325 Mg Tab PO Not Given Q6HR [facility] Acetaminophen/Codeine Phosphate 2 tab 09/27/20 10:54 09/30/20 11:51 Acetaminophen/Codeine 30-300mg Tablet PO 2 tab Q6H PRN Administration Severe Pain (7-10) Hydrocodone Bitart/Acetaminophen 2 tab 09/27/20 13:52 09/29/20 22:07 Hydrocodone/Acetaminophen 10/325 Mg Tablet PO 2 tab Q4H PRN Administration .BREAKTHROUGH Pain Al Hydroxide/Mg Hydroxide 15 ml 09/20/20 13:33 09/22/20 14:04 Mag-Al 1200 Mg/1200 Mg/30 Ml Udcup PO 15 ml Q6H PRN Administration Dyspepsia Albuterol/Ipratropium 3 ml 09/19/20 19:00 09/30/20 08:11 Ipratropium/Albuterol Sulfate 3 Ml Neb NEB 3 ml [id number] MAHSA Administration Diltiazem HCl 30 mg 09/29/20 21:00 09/30/20 09:00 Diltiazem Hcl 30 Mg Tablet PO 30 mg BID MAHSA Administration Famotidine 20 mg 09/27/20 21:00 09/30/20 09:00 Famotidine 20 Mg Tab PO 20 mg Q12HR MAHSA Administration Piperacillin Sod/Tazobactam 100 mls @ 200 mls/hr 09/26/20 14:00 09/30/20 09:00 Sod 3.375 gm/ Sodium Chloride IVPB 100 mls 0200,0800,1400,2000 MAHSA Administration Lisinopril 2.5 mg 09/18/20 21:00 09/29/20 19:54 Lisinopril 2.5 Mg Tab PO 2.5 mg HS MAHSA Administration Magnesium Hydroxide 30 ml 09/25/20 16:50 09/26/20 08:07 Milk Of Magnesia 30 Ml Udcup PO 30 ml DAILYPRN PRN Administration Constipation Metoprolol Tartrate 50 mg 09/29/20 21:00 09/30/20 09:00 Metoprolol Tartrate 50 Mg Tab PO 50 mg BID MAHSA Administration Mometasone Furoate/Formoterol Fumar 2 puff 09/17/20 06:30 09/30/20 08:18 Mometasone 200 Mcg/Formoterol 5 Mcg 120 Puff Inhaler INH 2 puff BID-RT MAHSA Administration Morphine Sulfate 4 mg 09/27/20 10:52 09/28/20 08:48 Morphine 4 Mg/Ml Vial SLOW IVP 4 mg Q4H PRN Administration Breakthrough Pain Ondansetron HCl 4 mg 09/20/20 13:33 09/20/20 21:59 Ondansetron Pf 4 Mg/2 Ml Vial IVP 4 mg Q6H PRN Administration Nausea/Vomiting Sodium Chloride 10 ml 09/16/20 09:00 09/30/20 09:00 Flush - Normal Saline 10 Ml Syringe IVF 10 ml Q12HR MAHSA Administration Sodium Chloride 10 ml 09/16/20 06:45 09/19/20 16:56 Flush - Normal Saline 10 Ml Syringe IVF 10 ml PRN PRN Administration Saline Flush Warfarin Sodium 6 mg 09/29/20 17:00 09/29/20 17:09 Warfarin Sodium 2 Mg Tab PO 6 mg 1700 MAHSA Administration - Exam General Appearance: awake alert, ill appearing Eye: PERRL, anicteric sclera ENT: normocephalic atraumatic, no oropharyngeal lesions, moist mucosa Neck: supple, symmetric, no JVD Heart: irregular Respiratory: CTAB, no wheezes Gastrointestinal: soft, non-tender Psychiatric: normal affect Hosp A/P (1) Acute cholecystitis Code(s): K81.0 - ACUTE CHOLECYSTITIS Status: Acute Plan: Patient underwent laparoscopic cholecystectomy. (2) Acute blood loss as cause of postoperative anemia Code(s): D62 - ACUTE POSTHEMORRHAGIC ANEMIA Status: Acute Plan: He developed postop anemia following cholecystectomy. He did receive 2 units of packed red cells and hemoglobin is stable since. (3) Morbid obesity Code(s): E66.01 - MORBID (SEVERE) OBESITY DUE TO EXCESS CALORIES Status: Acute (4) Chronic atrial fibrillation Code(s): I48.20 - CHRONIC ATRIAL FIBRILLATION, UNSPECIFIED Status: Acute Plan: Continue his home medications. - Plan old records reviewed/req (I have seen a few of those), PT/OT
[2020-09-30] MEDS: HYDROcodone/Acetaminophen 10/325 mg Tablet PO PRN (15:00)
--- NOTE | 2020-09-30 16:24 | EKG ---
Test Reason : Blood Pressure : / mmHG Vent. Rate : 117 BPM Atrial Rate : 113 BPM P-R Int : 000 ms QRS Dur : 086 ms QT Int : 318 ms P-R-T Axes : 000 011 -25 degrees QTc Int : 443 ms Atrial fibrillation with rapid ventricular response Abnormal ECG Confirmed by PONCHO LION M.D. ([id number]), publications editor LUCY TANNER ([id number]) on 09/30/2020 4:24:27 PM Referred By: Confirmed By:PONCHO LION M.D.
--- NOTE | 2020-09-30 17:05 | PRG ---
DATE OF SERVICE: 09/30/2020 SUBJECTIVE: The patient was seen this morning during rounds. He was sitting up in a chair, sleeping comfortably with no signs of acute distress. Nursing reported no acute events. OBJECTIVE: VITAL SIGNS: Temperature 98.2, pulse 87, respirations 20, oxygen saturation 97% on room air, blood pressure 142/82. GENERAL: Well-appearing elderly male, sitting up in chair, sleeping, resting comfortably with no signs of acute distress. PULMONARY: Equal chest rise and fall. Clear breath sounds bilaterally. No signs of acute respiratory distress. CARDIAC: Regular rate and rhythm. LABORATORY FINDINGS: White count 14.4, hemoglobin 10.5, hematocrit 32.2, platelets 138. Sodium 136, potassium 4.1, chloride 103, bicarb 21, BUN 9, creatinine 0.63, glucose 96. DIAGNOSTIC FINDINGS: There are no new diagnostic findings to report. ASSESSMENT: Postoperative day 10 status post open cholecystectomy and postop day 9 status post exploratory laparotomy and control of venous bleeding. RECOMMENDATIONS: Continue current diet and pain regimen. Continue physical and occupational therapy. There is no concern for acute intraabdominal infection. Continue aggressive pulmonary hygiene. The patient is ready for discharge from a surgery standpoint. Job ID: [id number]
[2020-09-30] MEDS: Warfarin Sodium 2 MG TAB PO SCH (17:36)
[2020-09-30] MEDS: Lisinopril 2.5 MG TAB PO SCH (21:01)
[2020-10-01] MEDS: Acetaminophen 325 MG TAB PO SCH ×4 (01:04→17:44)
[2020-10-01] MEDS: Lisinopril 2.5 MG TAB PO SCH ×2 (01:05→20:59)
[2020-10-01] MEDS: HYDROcodone/Acetaminophen 10/325 mg Tablet PO PRN ×3 (01:06→20:57)
[2020-10-01] MEDS: Piperacillin/Tazobactam 3.375 GM in Sodium Chloride 0.9% 100 ML IVPB SCH ×4 (01:09→20:59)
[2020-10-01 04:56] LABS: Anion Gap 13 mmol/L (10-20); BUN (Urea Nitrogen) 8 mg/dL (8.4-25.7); Calc. Creatinine Clearance 264 mL/min (70-130); Carbon Dioxide 23 mmol/L (23-31); Chloride 103 mmol/L (98-107); Glucose 101 mg/dL (80-115); Potassium 4.2 mmol/L (3.5-5.1); Sodium 135 mmol/L (136-145)
[2020-10-01 06:31] LABS: INR-International Normal Ratio 1.2; Prothrombin Time 15.7 sec (12.0-14.7)
[2020-10-01 06:43] LABS: #Eosinphils 0.6 thou/uL (0.0-0.7); #Lymphocytes 2.8 thou/uL (1.20-3.40); #Monocytes 0.8 thou/uL (0.11-0.59); #Neutrophils 7.5 thou/uL (1.40-6.50); %Basophils 0.7 % (0.0-1.0); %Lymphocytes 28.2 % (21.0-51.0); %Monocytes 6.1 % (0.0-10.0); Hemoglobin 10.9 g/dL (14.0-18.0); Mean Corpuscular Hemoglobin 29.9 pg (27.0-31.0); Mean Corpuscular Volume 93.7 fL (78.0-98.0); Mean Platelet Volume 6.6 fL (7.4-10.4); Platelet Count 349 thou/uL (130-400); RBC Distribution Width 14.5 % (11.5-14.5); Red Blood Cell (RBC) Count 3.64 mill/uL (4.70-6.10); White Blood Cell (WBC) Count 11.6 thou/uL (4.8-10.8)
[2020-10-01 06:44] LABS: RBC Morphology Normal
[2020-10-01] MEDS: Metoprolol Tartrate 50 MG TAB PO SCH ×2 (08:09→20:59)
[2020-10-01] MEDS: Famotidine 20 MG TAB PO SCH ×2 (08:09→20:59)
[2020-10-01] MEDS: Mometasone 200 MCG/Formoterol 5 MCG 120 PUFF INHALER INH SCH ×2 (08:32→19:12)
--- NOTE | 2020-10-01 13:53 | PDOC.HOSPP ---
- Subjective Encounter Date: 10/01/20 Encounter Time: 13:52 Subjective: I discussed the case with case management today. In the past Mr. Romero has been approved to go to a care home facility hopefully tomorrow. The facility he chose was [facility] in [place]. - Objective Vital Signs & Weight: Vital Signs (12 hours) Temp Pulse Resp BP Pulse Ox 10/01/20 11:34 98.7 F 67 20 101/59 L 95 10/01/20 08:29 76 18 10/01/20 08:00 98.2 F 89 20 145/79 H 98 10/01/20 03:29 98.6 F 72 20 106/53 L 97 Weight Admit Weight 370 lb 3.2 oz Weight 371 lb 11.2 oz Most Recent Monitor Data Heart Rate from ECG 84 NIBP 137/93 NIBP BP-Mean 107 Respiration from ECG 20 SpO2 97 I&O: 09/30/20 10/01/20 10/02/20 06:59 06:59 06:59 Intake Total 2440 2000 Output Total 1150 850 Balance 1290 1150 Result Diagrams: 10/01/20 04:15 10/01/20 04:15 Radiology Reviewed by me: Yes EKG Reviewed by me: Yes Hospitalist ROS - Review of Systems Constitutional: reports: weakness, malaise Respiratory: reports: shortness of breath, SOB with excertion Gastrointestinal: reports: nausea - Medication Medications: Active Medications Generic Name Dose Route Start Last Admin Trade Name Freq PRN Reason Stop Dose Admin Acetaminophen 325 mg 09/27/20 12:00 10/01/20 12:00 Acetaminophen 325 Mg Tab PO Not Given Q6HR [facility] Acetaminophen/Codeine Phosphate 2 tab 09/27/20 10:54 09/30/20 17:35 Acetaminophen/Codeine 30-300mg Tablet PO 2 tab Q6H PRN Administration Severe Pain (7-10) Hydrocodone Bitart/Acetaminophen 2 tab 09/27/20 13:52 10/01/20 08:08 Hydrocodone/Acetaminophen 10/325 Mg Tablet PO 2 tab Q4H PRN Administration .BREAKTHROUGH Pain Al Hydroxide/Mg Hydroxide 15 ml 09/20/20 13:33 09/22/20 14:04 Mag-Al 1200 Mg/1200 Mg/30 Ml Udcup PO 15 ml Q6H PRN Administration Dyspepsia Albuterol/Ipratropium 3 ml 09/19/20 19:00 10/01/20 08:29 Ipratropium/Albuterol Sulfate 3 Ml Neb NEB 3 ml [id number] MAHSA Administration Diltiazem HCl 30 mg 09/29/20 21:00 10/01/20 08:09 Diltiazem Hcl 30 Mg Tablet PO 30 mg BID MAHSA Administration Famotidine 20 mg 09/27/20 21:00 10/01/20 08:09 Famotidine 20 Mg Tab PO 20 mg Q12HR MAHSA Administration Piperacillin Sod/Tazobactam 100 mls @ 200 mls/hr 09/26/20 14:00 10/01/20 08:09 Sod 3.375 gm/ Sodium Chloride IVPB 100 mls 0200,0800,1400,2000 MAHSA Administration Lisinopril 2.5 mg 09/18/20 21:00 10/01/20 01:05 Lisinopril 2.5 Mg Tab PO Not Given HS MAHSA Magnesium Hydroxide 30 ml 09/25/20 16:50 09/26/20 08:07 Milk Of Magnesia 30 Ml Udcup PO 30 ml DAILYPRN PRN Administration Constipation Metoprolol Tartrate 50 mg 09/29/20 21:00 10/01/20 08:09 Metoprolol Tartrate 50 Mg Tab PO 50 mg BID MAHSA Administration Mometasone Furoate/Formoterol Fumar 2 puff 09/17/20 06:30 10/01/20 08:32 Mometasone 200 Mcg/Formoterol 5 Mcg 120 Puff Inhaler INH 2 puff BID-RT MAHSA Administration Morphine Sulfate 4 mg 09/27/20 10:52 09/28/20 08:48 Morphine 4 Mg/Ml Vial SLOW IVP 4 mg Q4H PRN Administration Breakthrough Pain Ondansetron HCl 4 mg 09/20/20 13:33 09/20/20 21:59 Ondansetron Pf 4 Mg/2 Ml Vial IVP 4 mg Q6H PRN Administration Nausea/Vomiting Sodium Chloride 10 ml 09/16/20 09:00 10/01/20 08:10 Flush - Normal Saline 10 Ml Syringe IVF 10 ml Q12HR MAHSA Administration Sodium Chloride 10 ml 09/16/20 06:45 09/19/20 16:56 Flush - Normal Saline 10 Ml Syringe IVF 10 ml PRN PRN Administration Saline Flush - Exam General Appearance: NAD, awake alert Eye: PERRL, anicteric sclera ENT: normocephalic atraumatic, no oropharyngeal lesions Neck: supple, symmetric, no JVD, no thyromegaly Heart: RRR, no murmur, no gallops Respiratory: CTAB Gastrointestinal: soft, non-tender, non-distended Neurological: cranial nerve grossly intact Musculoskeletal: normal tone Psychiatric: normal affect Hosp A/P (1) Acute cholecystitis Code(s): K81.0 - ACUTE CHOLECYSTITIS Status: Acute (2) Acute blood loss as cause of postoperative anemia Code(s): D62 - ACUTE POSTHEMORRHAGIC ANEMIA Status: Acute (3) Morbid obesity Code(s): E66.01 - MORBID (SEVERE) OBESITY DUE TO EXCESS CALORIES Status: Acute (4) Chronic atrial fibrillation Code(s): I48.20 - CHRONIC ATRIAL FIBRILLATION, UNSPECIFIED Status: Acute - Plan PT/OT, social services designee, out of bed/ambulate
[2020-10-01] MEDS ORDERED: Warfarin Sodium 7.5 MG TAB PO SCH (17:00)
[2020-10-01] MEDS: Acetaminophen/Codeine 30-300mg Tablet PO PRN (17:05)
--- NOTE | 2020-10-01 18:05 | PRG ---
DATE OF SERVICE: 10/01/2020 This is Sadia Morse PA-C dictating a report for Jonh Torres DO. SUBJECTIVE: The patient was seen this afternoon during rounds. He was sitting up in the recliner with no signs of acute distress. He reported his pain is well controlled. States he had a very large bowel movement today and that his stool was starting to become more formed and normal. Has no complaints. Continues to work with PT. OBJECTIVE: VITAL SIGNS: Temperature 98.7, pulse 67, respirations 20, oxygen saturation 95% on room air, blood pressure 101/59. GENERAL: Well-appearing middle-aged male, sitting up in recliner with no signs of acute distress. PULMONARY: Equal chest rise and fall. No signs of acute respiratory distress. CARDIAC: Regular rate and rhythm. GI: Abdomen is soft, nontender, nondistended. EXTREMITIES: 2+ pulses in all extremities. Gross motor and sensation intact. No significant swelling noted. NEURO: GCS is 15. LABORATORY FINDINGS: White count 11.6, hemoglobin 10.9, hematocrit 34.1, platelets 349. Sodium 135, potassium 4.2, chloride 103, bicarb 23, BUN 8, creatinine 0.66, glucose 101. DIAGNOSTIC FINDINGS: There are no new diagnostic findings to report. ASSESSMENT: Postop day 11 status post open cholecystectomy, cystectomy, and postop day 9, status post exploratory laparotomy and control of venous bleeding. RECOMMENDATIONS: Continue current diet and pain regimen. Continue physical and occupational therapy. There is no concern for acute intraabdominal infection at this time. Continue aggressive pulmonary hygiene and supportive care. This patient is ready for discharge from a surgery standpoint. This patient was discussed with Dr. Torres before this dictation. Job ID: [id number]
[2020-10-02] MEDS: Acetaminophen 325 MG TAB PO SCH ×3 (00:30→11:37)
[2020-10-02] MEDS: Piperacillin/Tazobactam 3.375 GM in Sodium Chloride 0.9% 100 ML IVPB SCH ×3 (02:27→14:12)
[2020-10-02 03:57] LABS: #Basophils 0.1 thou/uL (0.0-0.2); #Eosinphils 0.6 thou/uL (0.0-0.7); #Monocytes 0.8 thou/uL (0.11-0.59); #Neutrophils 6.9 thou/uL (1.40-6.50); %Basophils 0.5 % (0.0-1.0); %Eosinophils 5.2 % (0.0-10.0); %Lymphocytes 26.8 % (21.0-51.0); %Monocytes 6.7 % (0.0-10.0); %Neutrophils 60.8 % (42.0-75.0); Hemoglobin 11.4 g/dL (14.0-18.0); Mean Corpuscular HGB CONC 33.3 g/dL (32.0-36.0); Mean Corpuscular Hemoglobin 31.4 pg (27.0-31.0); Mean Corpuscular Volume 94.2 fL (78.0-98.0); Mean Platelet Volume 6.7 fL (7.4-10.4); Platelet Count 371 thou/uL (130-400); RBC Distribution Width 14.5 % (11.5-14.5); Red Blood Cell (RBC) Count 3.62 mill/uL (4.70-6.10); White Blood Cell (WBC) Count 11.3 thou/uL (4.8-10.8)
[2020-10-02 04:05] LABS: INR-International Normal Ratio 1.3; Prothrombin Time 16.7 sec (12.0-14.7)
[2020-10-02 04:18] LABS: Anion Gap 17 mmol/L (10-20); BUN (Urea Nitrogen) 7 mg/dL (8.4-25.7); Calc. Creatinine Clearance 282 mL/min (70-130); Calcium 8.3 mg/dL (7.8-10.44); Carbon Dioxide 20 mmol/L (23-31); Chloride 105 mmol/L (98-107); Glucose 92 mg/dL (80-115); Potassium 4.6 mmol/L (3.5-5.1); Sodium 137 mmol/L (136-145)
[2020-10-02] MEDS: Mometasone 200 MCG/Formoterol 5 MCG 120 PUFF INHALER INH SCH (06:54)
[2020-10-02 08:37] VITALS: TEMP 98
[2020-10-02] MEDS: Famotidine 20 MG TAB PO SCH (08:38)
[2020-10-02] MEDS: Metoprolol Tartrate 50 MG TAB PO SCH (08:38)
[2020-10-02 11:56] VITALS: BP 103/66
[2020-10-02] MEDS: Acetaminophen/Codeine 30-300mg Tablet PO PRN (15:06)
--- NOTE | 2020-10-02 15:26 | PDOC.DS.DS ---
Provider - Provider Date of Admission: 09/15/20 21:41 Date of Discharge: 10/02/20 Admitting Provider: Justin Collins DO Consultations: General Surgery Primary Care Physician: Erik Sotelo MD Course - Hospital Course Hospital Course: He did receive 2 units of packed red cells Mr. Kt Romero is a 65-year-old morbidly obese gentleman with multiple medical history who was admitted to the hospital for acute cholecystitis. He was taken to the operating room by the general surgeon and underwent lap cholecystectomy. He had some postop compl ications including postop bleeding which required exploratory laparotomy.. He also received some fresh frozen plasma. He did well and eventually was transitioned to the medicine service. He was s een by multiple services during this hospitalization including cardiology due to his irregular heart rhythm. He was stabilized on his routine home medications. He is in need of ongoing physical therapy and he requested discharge to rehab hospital. He is going to be discharged today to long-term facility. He will follow up with general surgery to remove the winston. This will be in 3 days following his hospital discharge. He will resume his other regularly scheduled medications. Resuscitation Status: 09/15/20 21:48 Resuscitation Status Routine Resuscitation Status: FULL: Full Resuscitation - Labs Lab Results: 10/02/20 03:20 10/02/20 03:20 Abnormal Lab Results - Last 48 hrs 10/01/20 04:15: Sodium 135 L, BUN 8 L, Creatinine 0.66 L 10/01/20 04:15: WBC 11.6 H, RBC 3.64 L, Hgb 10.9 L, Hct 34.1 L, MPV 6.6 L, Neutrophils # 7.5 H, Monocytes # 0.8 H 10/01/20 06:09: PT 15.7 H, APTT 40.0 H 10/02/20 03:20: Carbon Dioxide 20 L, BUN 7 L, Creatinine 0.64 L 10/02/20 03:20: WBC 11.3 H, RBC 3.62 L, Hgb 11.4 L, Hct 34.1 L, MCH 31.4 H, MPV 6.7 L, Neutrophils # 6.9 H, Monocytes # 0.8 H 10/02/20 03:20: PT 16.7 H, APTT 38.0 H Microbiology - Entire Visit 09/27/20 14:04 Venous blood - Right Arm Blood Culture - Preliminary NO GROWTH AT 48 HOURS 09/27/20 13:53 Venous blood - Left Hand Blood Culture - Preliminary NO GROWTH AT 48 HOURS 09/20/20 12:34 Gallbladder Bacterial Culture - Final 09/20/20 12:34 Gallbladder Anaerobic Culture - Final 09/15/20 17:40 Venous blood - Left Arm Blood Culture - Final NO GROWTH IN 5 DAYS 09/15/20 17:48 Venous blood - Right Arm Blood Culture - Final NO GROWTH IN 5 DAYS - Physical Exam Vitals: Vital Signs (12 hours) Temp Pulse Pulse Pulse Resp BP BP 10/02/20 12:58 76 20 10/02/20 09:30 70 65 103/66 92/53 L 10/02/20 08:00 98 F 80 16 10/02/20 06:56 73 18 10/02/20 04:05 97.9 F 73 18 BP BP Pulse Ox 10/02/20 12:58 100 10/02/20 09:30 10/02/20 08:00 123/58 L 97 10/02/20 06:56 100 10/02/20 04:05 109/57 L 100 Weight Admit Weight 370 lb 3.2 oz Weight 371 lb 11.2 oz Most Recent Monitor Data Heart Rate from ECG 84 NIBP 137/93 NIBP BP-Mean 107 Respiration from ECG 20 SpO2 97 Physical Exam: The patient was seen and examined on the day of discharge. Problem - Problem (1) Acute cholecystitis Code(s): K81.0 - ACUTE CHOLECYSTITIS Status: Acute (2) Acute blood loss as cause of postoperative anemia Code(s): D62 - ACUTE POSTHEMORRHAGIC ANEMIA Status: Acute (3) Morbid obesity Code(s): E66.01 - MORBID (SEVERE) OBESITY DUE TO EXCESS CALORIES Status: Acute (4) Chronic atrial fibrillation Code(s): I48.20 - CHRONIC ATRIAL FIBRILLATION, UNSPECIFIED Status: Acute - Time spent with Patient (mins): 30 Plan - Discharge Medications Home Medications: Medication Instructions Recorded Confirmed Type Metoprolol Tartrate [Lopressor] 25 mg PO BID-WM 01/27/19 09/16/20 History Ascorbic Acid [Vitamin C] 500 mg PO DAILY 09/16/20 09/16/20 History Beta Carotene [Vitamin A] 25,000 unit PO DAILY 09/16/20 09/16/20 History Biotin 500 mcg PO DAILY 09/16/20 09/16/20 History Budesonide/Formoterol Fumarate 2 puff IH DAILY PRN 09/16/20 09/16/20 History [Budesonide-Formoterol 160-4.5] Chromium Picolinate 1,000 mcg PO DAILY 09/16/20 09/16/20 History Flaxseed Oil 1,000 mg PO DAILY 09/16/20 09/16/20 History Folic Acid 0.4 mg PO DAILY 09/16/20 09/16/20 History Lisinopril [Zestril] 2.5 mg PO HS 09/16/20 09/16/20 History [place]-3 Fatty Acids/Fish Oil [Fish 1 cap PO DAILY 09/16/20 09/16/20 History Oil 1,000 mg Capsule] Polyethylene Glycol 3350 17 gm PO DAILY PRN 09/16/20 09/16/20 History Prasterone (DHEA) [DHEA] 25 mg PO DAILY 09/16/20 09/16/20 History Selenium 200 mcg PO DAILY 09/16/20 09/16/20 History Vitamin B Complex 1 cap PO DAILY 09/16/20 09/16/20 History Warfarin Sodium 5 mg PO QPM 09/16/20 09/16/20 History Allergies: No Known Allergies Allergy (Verified 09/16/20 18:20) - Discharge Instructions Activity:: Activity as Tolerated Nourishment:: Heart Healthy Diet Therapies:: Physical Therapy - Follow up Plan Referrals: [facility] [Outside] (penitentiary placement. ) [facility] [ Not on Staff] - (Accepting pcp at the [facility] for snf placement.) Erik Sotelo MD [Primary Care Provider] - 7 Days (please follow up with provider in 7days. call the office to schedule an appointment.) Heath Rico Jr, MD [Active] - (Follow up with Dr. Rico in 2 weeks. Winston can be removed 14 days post op. ) Disposition: SNF FACILITY Quality - Care Measures CORE MEASURES:: N/A
== END 2020-10-02 16:04 | DRG 417 ==
LOC: ERS 16:37 → ERHOLD 21:41 → 2SW 09-16 18:14 → T4-A 09-19 15:50 → CCU 09-21 02:40 → 2NO 09-22 12:44
PROVIDERS: ADMIT Family Medicine; ATTEND Hospitalist
PROC: 0FT44ZZ Resection of Gallbladder, Percutaneous Endoscopic Approach (ICD-10-PCS; principal; 2020-09-20)
PROC: BF10YZZ Fluoroscopy of Bile Ducts using Other Contrast (ICD-10-PCS; 2020-09-20)
PROC: 30233L1 Transfusion of Nonautologous Fresh Plasma into Peripheral Vein, Percutaneous Approach (ICD-10-PCS; 2020-09-20)
PROC: 30233K1 Transfusion of Nonautologous Frozen Plasma into Peripheral Vein, Percutaneous Approach (ICD-10-PCS; 2020-09-20)
PROC: 0W3G0ZZ Control Bleeding in Peritoneal Cavity, Open Approach (ICD-10-PCS; 2020-09-21)
PROC: 30233N1 Transfusion of Nonautologous Red Blood Cells into Peripheral Vein, Percutaneous Approach (ICD-10-PCS; 2020-09-21)
PROC: 5A09457 Assistance with Respiratory Ventilation, 24-96 Consecutive Hours, Continuous Positive Airway Pressure (ICD-10-PCS; 2020-09-22)
DX: K80.00 Calculus of gallbladder with acute cholecystitis without obstruction (principal); J96.00 Acute respiratory failure, unspecified whether with hypoxia or hypercapnia; I50.33 Acute on chronic diastolic (congestive) heart failure; K91.841 Postprocedural hemorrhage of a digestive system organ or structure following other procedure; D62 Acute posthemorrhagic anemia; E87.1 Hypo-osmolality and hyponatremia; I48.20 Chronic atrial fibrillation, unspecified; I42.9 Cardiomyopathy, unspecified; J98.11 Atelectasis; J90 Pleural effusion, not elsewhere classified; Z68.43 Body mass index [BMI] 50.0-59.9, adult; Y83.8 Other surgical procedures as the cause of abnormal reaction of the patient, or of later complication, without mention of misadventure at the time of the procedure; E66.01 Morbid (severe) obesity due to excess calories; Z20.828 Contact with and (suspected) exposure to other viral communicable diseases; I11.0 Hypertensive heart disease with heart failure; J44.9 Chronic obstructive pulmonary disease, unspecified; F41.9 Anxiety disorder, unspecified; F31.9 Bipolar disorder, unspecified; F43.10 Post-traumatic stress disorder, unspecified; F17.210 Nicotine dependence, cigarettes, uncomplicated; M19.90 Unspecified osteoarthritis, unspecified site; G47.33 Obstructive sleep apnea (adult) (pediatric); M54.5 Low back pain; G89.29 Other chronic pain; Z79.02 Long term (current) use of antithrombotics/antiplatelets; Z79.51 Long term (current) use of inhaled steroids; Z79.899 Other long term (current) drug therapy; E87.70 Fluid overload, unspecified; K59.00 Constipation, unspecified; D72.829 Elevated white blood cell count, unspecified; I95.9 Hypotension, unspecified
CPT/HCPCS: 36415; 36416; 36430; 47532; 71045; 74177; 76705; 78226; 80048; 80053; 80076; 82550; 83605; 83690; 83735; 83880; 84484; 85014; 85018; 85025; 85610; 85730; 86850; 86900; 86901; 87040; 87070; 87205; 87635; 88304; 93005; 93306; 94640; 94660; 96365; 96375; 96376; A9537; J1100; J1170; J1610; J1650; J1885; J1940; J2250; J2270; J2370; J2405; J2543; J2704; J3010; J3430; J3480; J3490; J7050; J7620; P9016; P9059; Q9967; S0020; S0028; U0003

== ENCOUNTER 2021-09-24 10:30 | Inpatient (IN) | payer MEDICARE, MEDICAID ==
[2021-09-24 12:55] LABS: Hemoglobin 14.5 g/dL (13.5-17.5); Mean Corpuscular HGB CONC 32.8 g/dL (32.0-36.0); Mean Corpuscular Hemoglobin 29.3 pg (27.0-33.0); Mean Corpuscular Volume 89.3 fl (81.2-95.1); Mean Platelet Volume 9.9 fl (7.4-10.4); Platelet Count 216 10x3/uL (150-450); RBC Distribution Width 14.5 % (11.5-14.5); Red Blood Cell (RBC) Count 4.95 10x6/uL (4.32-5.72); White Blood Cell (WBC) Count 11.7 10x3/uL (3.5-10.5)
[2021-09-24 12:58] LABS: INR-International Normal Ratio 2.4
[2021-09-24 13:12] LABS: ALT (SGPT) 35 U/L (8-55); AST (SGOT) 29 U/L (5-34); Alkaline Phosphatase 60 U/L (40-110); Anion Gap 12 mmol/L (10-20); BUN (Urea Nitrogen) 14 mg/dL (8.4-25.7); Bilirubin, Total 0.5 mg/dL (0.2-1.2); Calc. Creatinine Clearance 0 mL/min (70-130); Calcium 8.6 mg/dL (7.8-10.44); Carbon Dioxide 24 mmol/L (23-31); Chloride 106 mmol/L (98-107); Globulin 2.6 g/dL (2.4-3.5); Glucose 94 mg/dL (80-115); Potassium 4.3 mmol/L (3.5-5.1); Protein, Total 6.6 g/dL (5.8-8.1); Sodium 138 mmol/L (136-145)
[2021-09-25 00:15] LABS: SARS-CoV-2 PCR by NAA Not Detected (NotDetected)
[2021-09-25 14:11] VITALS: BMI 54.2
[2021-09-27] MEDS ORDERED: Heparin 10,000 UNITS/ 10 ML VIAL ONE (10:09)
[2021-09-27] MEDS ORDERED: Protamine Sulfate 50 MG/5 ML VIAL ONE (10:09)
[2021-09-27] MEDS ORDERED: Fentanyl 100 MCG/2 ML VIAL ONE ×2 (10:54→13:48)
[2021-09-27] MEDS ORDERED: Rocuronium Bromide 10 MG/ML (10ML VIAL) ONE (11:14)
[2021-09-27] MEDS ORDERED: Ondansetron PF 4 MG/2 ML Vial ONE (11:14)
[2021-09-27] MEDS ORDERED: Dexamethasone 20 MG/5 ML VIAL ONE (11:14)
[2021-09-27] MEDS ORDERED: Glycopyrrolate 0.2 MG/ML 5 ML SYRINGE ONE (11:14)
[2021-09-27] MEDS ORDERED: Lidocaine 1% PF 5 ML VIAL ONE (11:14)
[2021-09-27] MEDS ORDERED: PROPOFOL 200 MG/20 ML VIAL ONE (11:14)
[2021-09-27] MEDS ORDERED: Ketorolac Tromethamine 30 MG/ML VIAL ONE (11:14)
[2021-09-27] MEDS ORDERED: CEFAZOLIN 1 GM VIAL ONE (12:05)
[2021-09-27] MEDS ORDERED: Polyethylene Glycol 3350 17 GM Packet PO PRN (13:14)
[2021-09-27] MEDS ORDERED: Acetaminophen 325 MG TAB PO PRN (13:15)
[2021-09-27] MEDS ORDERED: hydrALAZINE 20 MG/ML VIAL SLOW IVP PRN (13:17)
[2021-09-27] MEDS ORDERED: Ondansetron PF 4 MG/2 ML Vial IVP PRN (13:17)
[2021-09-27] MEDS ORDERED: Benzonatate 100 MG CAP PO PRN (13:17)
[2021-09-27] MEDS ORDERED: Calcium Carbonate 500 MG ChewTAB PO PRN (13:17)
[2021-09-27] MEDS ORDERED: Temazepam 15 MG CAP PO PRN (13:17)
[2021-09-27] MEDS ORDERED: Mometasone 200 MCG/Formoterol 5 MCG 120 PUFF INHALER INH PRN (13:39)
[2021-09-27] MEDS ORDERED: Warfarin Sodium 5 MG TAB PO SCH (17:00)
[2021-09-27] MEDS: Metoprolol Tartrate 25 MG TAB PO SCH (18:08)
[2021-09-27] MEDS ORDERED: Lisinopril 2.5 MG TAB PO SCH (21:00)
[2021-09-28] MEDS: Cepastat Lozenges 1 LOZ PO PRN ×2 (00:12→03:16)
[2021-09-28] MEDS: HYDROcodone/Acetaminophen 5/325 mg Tablet PO PRN ×2 (03:15→07:46)
[2021-09-28 05:35] LABS: INR-International Normal Ratio 1.6; Prothrombin Time 18.8 sec (12.0-14.7)
[2021-09-28] MEDS: Metoprolol Tartrate 25 MG TAB PO SCH (07:48)
[2021-09-28] MEDS ORDERED: Aspirin Chewable 81 MG TAB PO SCH (09:00)
[2021-09-28 09:17] VITALS: BP 111/56; TEMP 97.9
== END 2021-09-28 16:03 | disposition home or self-care (01) | DRG 274 ==
LOC: SURG A 09-27 08:48 → 2SW 09-27 17:54
PROVIDERS: ADMIT Internal Medicine Cardiovascular Disease; ATTEND Internal Medicine Cardiovascular Disease
PROC: 02L73DK Occlusion of Left Atrial Appendage with Intraluminal Device, Percutaneous Approach (ICD-10-PCS; principal; 2021-09-27)
PROC: B24BZZ4 Ultrasonography of Heart with Aorta, Transesophageal (ICD-10-PCS; 2021-09-27)
PROC: 4A023N7 Measurement of Cardiac Sampling and Pressure, Left Heart, Percutaneous Approach (ICD-10-PCS; 2021-09-27)
DX: I48.21 Permanent atrial fibrillation (principal); I50.22 Chronic systolic (congestive) heart failure; Z68.43 Body mass index [BMI] 50.0-59.9, adult; D62 Acute posthemorrhagic anemia; Z00.6 Encounter for examination for normal comparison and control in clinical research program; I42.0 Dilated cardiomyopathy; I42.8 Other cardiomyopathies; R29.6 Repeated falls; Z20.822 Contact with and (suspected) exposure to COVID-19; E78.5 Hyperlipidemia, unspecified; J44.9 Chronic obstructive pulmonary disease, unspecified; I11.0 Hypertensive heart disease with heart failure; Z99.81 Dependence on supplemental oxygen; M19.90 Unspecified osteoarthritis, unspecified site; F17.210 Nicotine dependence, cigarettes, uncomplicated; E66.01 Morbid (severe) obesity due to excess calories; F31.9 Bipolar disorder, unspecified; G47.33 Obstructive sleep apnea (adult) (pediatric); M50.20 Other cervical disc displacement, unspecified cervical region; E11.9 Type 2 diabetes mellitus without complications; Z60.2 Problems related to living alone; Z90.49 Acquired absence of other specified parts of digestive tract; Z82.49 Family history of ischemic heart disease and other diseases of the circulatory system; Z82.5 Family history of asthma and other chronic lower respiratory diseases; Z80.8 Family history of malignant neoplasm of other organs or systems; Z79.01 Long term (current) use of anticoagulants; Z79.51 Long term (current) use of inhaled steroids; Z79.52 Long term (current) use of systemic steroids; Z79.899 Other long term (current) drug therapy
CPT/HCPCS: 33340; 36415; 36430; 80053; 85027; 85347; 85610; 86850; 86900; 86901; 93312; 93662; C1759; C1776; J0690; J1100; J1644; J1885; J2405; J2704; J2720; J3010; U0003; U0005

== ENCOUNTER 2021-09-24 10:31 | Outpatient (CLI) | payer MEDICARE, MEDICAID | END 2021-09-24 10:32 | disposition home or self-care (01) | LOC: LABBT 10:31 | PROVIDERS: ATTEND Internal Medicine Cardiovascular Disease | DX: Z01.812 Encounter for preprocedural laboratory examination (principal); Z20.822 Contact with and (suspected) exposure to COVID-19; Z53.9 Procedure and treatment not carried out, unspecified reason | CPT/HCPCS: 80053; 85027; 85610; 86850; 86900; 86901; U0003; U0005 ==

== ENCOUNTER 2021-12-17 09:42 | Outpatient (CLI) | payer MEDICARE, MEDICAID ==
[2021-12-17 11:01] LABS: Hemoglobin 14.6 g/dL (13.5-17.5); Mean Corpuscular HGB CONC 31.3 g/dL (32.0-36.0); Mean Corpuscular Hemoglobin 28.3 pg (27.0-33.0); Mean Corpuscular Volume 90.5 fl (81.2-95.1); Mean Platelet Volume 9.4 fl (7.4-10.4); Platelet Count 165 10x3/uL (150-450); RBC Distribution Width 14.6 % (11.5-14.5); Red Blood Cell (RBC) Count 5.16 10x6/uL (4.32-5.72); White Blood Cell (WBC) Count 8.7 10x3/uL (3.5-10.5)
[2021-12-17 11:15] LABS: INR-International Normal Ratio 2.6; Prothrombin Time 27.2 sec (9.5-12.1)
[2021-12-17 11:17] LABS: Anion Gap 14 mmol/L (10-20); BUN (Urea Nitrogen) 13 mg/dL (8.4-25.7); Calc. Creatinine Clearance 0 mL/min (70-130); Calcium 8.6 mg/dL (7.8-10.44); Carbon Dioxide 27 mmol/L (23-31); Chloride 103 mmol/L (98-107); Glucose 103 mg/dL (80-115); Potassium 4.6 mmol/L (3.5-5.1); Sodium 139 mmol/L (136-145)
[2021-12-18 00:05] LABS: SARS-CoV-2 PCR by NAA Not Detected (NotDetected)
== END 2021-12-17 09:43 | disposition home or self-care (01) ==
LOC: LABBT 09:42
PROVIDERS: ATTEND Internal Medicine Cardiovascular Disease
DX: Z01.812 Encounter for preprocedural laboratory examination (principal); I48.20 Chronic atrial fibrillation, unspecified; Z20.822 Contact with and (suspected) exposure to COVID-19; Z95.818 Presence of other cardiac implants and grafts
CPT/HCPCS: 80048; 85027; 85610; U0003; U0005

== ENCOUNTER 2021-12-20 08:15 | Day surgery (SDC) | payer MEDICARE, MEDICAID ==
[2021-12-14 12:48] VITALS: BMI 54.5
[2021-12-20] MEDS ORDERED: PROPOFOL 20 ML ONE ×2 (09:57→10:04)
[2021-12-20] MEDS ORDERED: Propofol 1,000 MG/100 ML VIAL IV ONE (09:57)
== END 2021-12-20 11:20 | disposition home or self-care (01) ==
LOC: SDC 08:15
PROVIDERS: ATTEND Internal Medicine Cardiovascular Disease
PROC: B246ZZ4 Ultrasonography of Right and Left Heart, Transesophageal (ICD-10-PCS; principal; 2021-12-20)
DX: I48.20 Chronic atrial fibrillation, unspecified (principal); I51.7 Cardiomegaly; Z79.01 Long term (current) use of anticoagulants; Z79.899 Other long term (current) drug therapy; Z95.818 Presence of other cardiac implants and grafts
CPT/HCPCS: 93312; J2704

== ENCOUNTER 2022-04-17 08:24 | Emergency (ER) | payer OTHER, MEDICAID ==
[2022-04-17 09:21] LABS: #Eosinphils 0.2 thou/uL (0.0-0.7); #Lymphocytes 2.4 thou/uL (1.20-3.40); #Monocytes 0.6 thou/uL (0.11-0.59); #Neutrophils 3.6 thou/uL (1.40-6.50); %Basophils 0.1 % (0.0-1.0); %Eosinophils 2.4 % (0.0-10.0); %Lymphocytes 35.2 % (21.0-51.0); %Monocytes 8.7 % (0.0-10.0); %Neutrophils 53.5 % (42.0-75.0); Mean Corpuscular HGB CONC 31.6 g/dL (32.0-36.0); Mean Corpuscular Hemoglobin 29.5 pg (27.0-31.0); Mean Corpuscular Volume 93.5 fL (78.0-98.0); Platelet Count 162 thou/uL (130-400); RBC Distribution Width 14.3 % (11.5-14.5); Red Blood Cell (RBC) Count 5.09 mill/uL (4.70-6.10); White Blood Cell (WBC) Count 6.7 thou/uL (4.8-10.8)
[2022-04-17 09:30] LABS: ALT (SGPT) 26 U/L (8-55); AST (SGOT) 23 U/L (5-34); Albumin 3.7 g/dL (3.4-4.8); Alkaline Phosphatase 66 U/L (40-110); Anion Gap 12 mmol/L (10-20); BUN (Urea Nitrogen) 14 mg/dL (8.4-25.7); Bilirubin, Total 0.5 mg/dL (0.2-1.2); Calc. Creatinine Clearance 0 mL/min (70-130); Calcium 8.1 mg/dL (7.8-10.44); Carbon Dioxide 31 mmol/L (23-31); Chloride 105 mmol/L (98-107); Estimated GFR 102; Globulin 2.9 g/dL (2.4-3.5); Glucose 122 mg/dL (80-115); Potassium 4.5 mmol/L (3.5-5.1); Protein, Total 6.6 g/dL (5.8-8.1); Sodium 143 mmol/L (136-145)
[2022-04-17] MEDS ORDERED: predniSONE 20 MG TAB ONE (09:50)
[2022-04-17 10:24] LABS: SARS-CoV-2 NAA Rapid Test Not Detected (NotDetected)
== END 2022-04-17 10:11 | disposition home or self-care (01) ==
LOC: ERS 08:24
DX: J18.9 Pneumonia, unspecified organism (principal); I48.91 Unspecified atrial fibrillation; I10 Essential (primary) hypertension; J44.9 Chronic obstructive pulmonary disease, unspecified; E66.9 Obesity, unspecified; Z68.45 Body mass index [BMI] 70 or greater, adult; Z20.822 Contact with and (suspected) exposure to COVID-19; Z79.899 Other long term (current) drug therapy
CPT/HCPCS: 71045; 80053; 83880; 84484; 85025; 93005; 94760; 99285; U0002; 36415; J7512

== ENCOUNTER 2022-04-24 12:14 | Outpatient (CLI) | payer MEDICAID, OTHER | END 2022-04-24 12:15 | disposition home or self-care (01) | LOC: DTY/OP 12:14 | PROVIDERS: ATTEND Surgery | DX: E66.01 Morbid (severe) obesity due to excess calories (principal) | CPT/HCPCS: 97802 ==

== ENCOUNTER 2022-08-13 10:15 | Inpatient (IN) | payer OTHER, MEDICAID ==
[2022-08-26 11:02] VITALS: BMI 56.4
[2022-08-27] MEDS ORDERED: Bupivacaine/Epinephrine 0.25% 30 ML VIAL ONE (10:34)
[2022-08-27 10:38] LABS: SARS-CoV-2 NAA Rapid Test Not Detected (NotDetected)
[2022-08-27] MEDS ORDERED: SUGAMMADEX SODIUM 200 MG/2 ML VIAL ONE (10:51)
[2022-08-27] MEDS ORDERED: fentaNYL PF 100 MCG/2 ML SYRINGE ONE (10:51)
[2022-08-27] MEDS ORDERED: Heparin 5,000 UNITS/ML VIAL ONE (11:02)
[2022-08-27] MEDS ORDERED: CEFAZOLIN 2 GM VIAL ONE (11:02)
[2022-08-27] MEDS ORDERED: Sodium Chloride 0.9% 100 ML ONE (11:03)
[2022-08-27] MEDS ORDERED: Albuterol Sulfate HFA (OR ONLY) ONE (11:20)
[2022-08-27] MEDS ORDERED: NEOSTIGMINE 3 MG/3 ML SYR 3 MG/3 ML SYRINGE ONE (11:20)
[2022-08-27] MEDS ORDERED: Glycopyrrolate 0.2 MG/ML 5 ML SYRINGE ONE (11:20)
[2022-08-27] MEDS ORDERED: Ondansetron PF 4 MG/2 ML Vial ONE (11:20)
[2022-08-27] MEDS ORDERED: PROPOFOL 200 MG/20 ML VIAL ONE (11:20)
[2022-08-27] MEDS ORDERED: Rocuronium Bromide 10 MG/ML (10ML VIAL) ONE (11:20)
[2022-08-27] MEDS ORDERED: Dexamethasone 20 MG/5 ML VIAL ONE (11:20)
[2022-08-27] MEDS ORDERED: FENTANYL 500 MCG/10 ML VIAL 2,000 MCG in Sodium Chloride 0.9% 60 ML IV PRN (12:12)
[2022-08-27] MEDS ORDERED: Ondansetron PF 4 MG/2 ML Vial IVP PRN ×2 (12:12→20:12)
[2022-08-27] MEDS ORDERED: diphenhydrAMINE 25 MG CAP PO PRN (12:12)
[2022-08-27] MEDS ORDERED: Promethazine HCl 25 MG/ML VIAL IM PRN ×3 (12:12→20:12)
[2022-08-27] MEDS ORDERED: diphenhydrAMINE 50 MG/ML VIAL IVP PRN ×2 (12:12→20:12)
[2022-08-27] MEDS ORDERED: Naloxone HCl 0.4 mg/ml Vial IV PRN (12:12)
[2022-08-27] MEDS ORDERED: Ondansetron HCl/PF 4 MG/2 ML Vial IVP PRN (12:12)
[2022-08-27] MEDS ORDERED: Promethazine HCl 25 MG/ML VIAL IVPB PRN (12:12)
[2022-08-27] MEDS ORDERED: diphenhydrAMINE 50 MG/ML VIAL IM PRN (12:12)
[2022-08-27] MEDS ORDERED: Communication Order-Pharmacy FS SCH (12:15)
[2022-08-27] MEDS ORDERED: Promethazine HCl 25 MG/ML VIAL ONE (12:40)
[2022-08-27] MEDS ORDERED: FENTANYL 50 MCG/ML 1 ML VIAL ONE (12:59)
[2022-08-27] MEDS ORDERED: Dextrose 50% Abboject 50 ML SYRINGE SLOW IVP PRN (20:12)
[2022-08-27] MEDS ORDERED: Dextrose 5% in Water 1,000 ML IV PRN (20:12)
[2022-08-27] MEDS ORDERED: hydrALAZINE 20 MG/ML VIAL SLOW IVP PRN (20:12)
[2022-08-27] MEDS ORDERED: Lisinopril 2.5 MG TAB PO SCH (20:45)
[2022-08-27] MEDS ORDERED: Metoprolol Tartrate 25 MG TAB PO SCH (20:45)
[2022-08-27] MEDS ORDERED: Mometasone 200 MCG/Formoterol 5 MCG 120 PUFF INHALER INH PRN (20:47)
[2022-08-27] MEDS ORDERED: Albuterol Sulfate 2.5 mg/3 ml Neb NEB PRN (20:52)
[2022-08-27] MEDS: D5 1/2 NS w/20 mEq KCL 1,000 ML IV SCH (21:00)
[2022-08-27] MEDS ORDERED: Enoxaparin Sodium 40 MG/0.4 ML SYRINGE SC SCH (21:00)
[2022-08-28 06:24] LABS: #Lymphocytes 1.6 thou/uL (1.20-3.40); #Monocytes 0.6 thou/uL (0.11-0.59); #Neutrophils 10.5 thou/uL (1.40-6.50); %Basophils 0.2 % (0.0-1.0); %Eosinophils 0.1 % (0.0-10.0); %Lymphocytes 12.3 % (21.0-51.0); %Monocytes 4.7 % (0.0-10.0); %Neutrophils 82.6 % (42.0-75.0); Hemoglobin 14.1 g/dL (14.0-18.0); Mean Corpuscular HGB CONC 31.9 g/dL (32.0-36.0); Mean Corpuscular Hemoglobin 29.7 pg (27.0-31.0); Mean Corpuscular Volume 93.2 fl (78.0-98.0); Mean Platelet Volume 7.4 fL (7.4-10.4); Platelet Count 174 10x3/uL (130-400); Red Blood Cell (RBC) Count 4.75 mill/uL (4.70-6.10); White Blood Cell (WBC) Count 12.7 10x3/uL (4.8-10.8)
[2022-08-28 06:35] LABS: Anion Gap 11 mmol/L (10-20); BUN (Urea Nitrogen) 12 mg/dL (8.4-25.7); Calc. Creatinine Clearance 273 mL/min (70-130); Calcium 8.3 mg/dL (7.8-10.44); Carbon Dioxide 26 mmol/L (23-31); Chloride 100 mmol/L (98-107); Estimated GFR 103; Glucose 137 mg/dL (80-115); Potassium 4.4 mmol/L (3.5-5.1); Sodium 133 mmol/L (136-145)
[2022-08-28] MEDS: D5 1/2 NS w/20 mEq KCL 1,000 ML IV SCH (06:56)
[2022-08-28] MEDS ORDERED: Metoprolol Tartrate 25 MG TAB PO SCH (08:00)
[2022-08-28] MEDS: Hydrocodone-Acetamin 15 ML UDCUP PO PRN ×2 (08:22→13:37)
[2022-08-28] MEDS ORDERED: Pantoprazole 40 MG VIAL IVP SCH (09:00)
[2022-08-28 13:01] VITALS: BP 117/84; TEMP 98.5
[2022-08-28] MEDS ORDERED: Lisinopril 2.5 MG TAB PO SCH (15:00)
== END 2022-08-28 14:56 | disposition home or self-care (01) | DRG 621 ==
LOC: SURG A 08-27 09:06
PROVIDERS: ADMIT Surgery; ATTEND Surgery
PROC: 0DB64Z3 Excision of Stomach, Percutaneous Endoscopic Approach, Vertical (ICD-10-PCS; principal; 2022-08-27)
PROC: 8E0W4CZ Robotic Assisted Procedure of Trunk Region, Percutaneous Endoscopic Approach (ICD-10-PCS; 2022-08-27)
DX: E66.01 Morbid (severe) obesity due to excess calories (principal); Z68.43 Body mass index [BMI] 50.0-59.9, adult; Z20.822 Contact with and (suspected) exposure to COVID-19; Z91.018 Allergy to other foods; I11.0 Hypertensive heart disease with heart failure; I50.9 Heart failure, unspecified; G47.33 Obstructive sleep apnea (adult) (pediatric)
CPT/HCPCS: 36415; 80048; 85025; 88307; C9113; J1100; J1644; J1650; J2405; J2550; J2704; J3010; J3480; J3490; U0002

== ENCOUNTER 2024-04-03 17:33 | Inpatient (IN) | payer OTHER ==
[2024-04-03 20:12] VITALS: BMI 49.5
[2024-04-03] MEDS ORDERED: Ondansetron PF 4 MG/2 ML Vial IVP PRN (20:41)
[2024-04-03] MEDS ORDERED: Ipratropium/Albuterol 3 ML NEB EZPAP PRN (20:49)
[2024-04-04] MEDS ORDERED: Cyclobenzaprine 10 MG TAB PO PRN (04:19)
[2024-04-04] MEDS ORDERED: Albuterol 200 PUFF (6.7GM INHALER) INH PRN (04:29)
[2024-04-04] MEDS ORDERED: Mometasone 200 MCG/Formoterol 5 MCG 120 PUFF INHALER INH PRN (04:30)
[2024-04-04 07:03] LABS: #Basophils 0.04 10x3/uL (0.0-0.2); %Basophils 0.4 % (0.0-1.0); %Eosinophils 1.1 % (0.0-10.0); %Lymphocytes 17.4 % (21.0-51.0); %Monocytes 7.3 % (0.0-10.0); %Neutrophils 73.3 % (42.0-75.0); Hematocrit 42.6 % (42.0-52.0); Hemoglobin 14.1 g/dL (14.0-18.0); Mean Corpuscular HGB CONC 33.1 g/dL (32.0-36.0); Mean Corpuscular Hemoglobin 29.4 pg (27.0-31.0); Mean Corpuscular Volume 88.8 fL (78.0-98.0); Mean Platelet Volume 9.6 fL (7.4-10.4); Platelet Count 150 10x3/uL (130-400); RBC Distribution Width 14.4 % (11.5-14.5)
[2024-04-04 07:17] LABS: Vancomycin, Random 6.5 ug/mL (See Comment)
[2024-04-04 07:19] LABS: Anion Gap 14 mmol/L (10-20); BUN (Urea Nitrogen) 11 mg/dL (8.4-25.7); Calc. Creatinine Clearance 251 mL/min (70-130); Calcium 8.4 mg/dL (7.8-10.44); Carbon Dioxide 23 mmol/L (23-31); Chloride 106 mmol/L (98-107); Estimated GFR 104; Glucose 109 mg/dL (80-115); Magnesium 2.1 mg/dL (1.6-2.6); Potassium 4.4 mmol/L (3.5-5.1); Sodium 139 mmol/L (136-145)
[2024-04-04] MEDS: Vancomycin (BATCH) 1.75 GM in Premix 1 BAG IVPB SCH (08:21)
[2024-04-04] MEDS: Ketoconazole 2% Cream 15 gm Tube TOP SCH (08:25)
[2024-04-04] MEDS: Enoxaparin 40 MG (0.4 mL) SYRINGE SC SCH (08:26)
[2024-04-04] MEDS: Multivitamin w/Zinc Stress 1 TAB PO SCH (08:28)
[2024-04-04] MEDS: Loratadine 10 MG TAB PO SCH (08:28)
[2024-04-04] MEDS: Pantoprazole DR 40 MG TAB PO SCH (08:29)
[2024-04-04] MEDS: Folic Acid 1 MG TAB PO SCH (08:29)
[2024-04-04] MEDS: Ascorbic Acid 500 mg Chewable Tablet PO SCH (08:29)
[2024-04-04] MEDS: Metoprolol Tartrate 25 MG TAB PO SCH (08:29)
[2024-04-04] MEDS: Acetaminophen 325 MG TAB PO PRN (08:38)
[2024-04-04] MEDS ORDERED: Loratadine 10 MG TAB PO SCH (09:00)
[2024-04-04] MEDS: Fluticasone Propionate Nasal Spray 16 gm Bottle NASAL SCH (09:38)
[2024-04-04] MEDS: Nystatin Powder 15 GM BOT TOP SCH (09:39)
[2024-04-05 06:06] LABS: #Basophils 0.04 10x3/uL (0.0-0.2); %Basophils 0.4 % (0.0-1.0); %Eosinophils 2.5 % (0.0-10.0); %Lymphocytes 29.3 % (21.0-51.0); %Monocytes 11.4 % (0.0-10.0); %Neutrophils 55.8 % (42.0-75.0); Hematocrit 40.2 % (42.0-52.0); Hemoglobin 13.1 g/dL (14.0-18.0); Mean Corpuscular HGB CONC 32.6 g/dL (32.0-36.0); Mean Corpuscular Hemoglobin 30.3 pg (27.0-31.0); Mean Corpuscular Volume 92.8 fL (78.0-98.0); Mean Platelet Volume 10.2 fL (7.4-10.4); Platelet Count 152 10x3/uL (130-400); RBC Distribution Width 14.4 % (11.5-14.5); Red Blood Cell (RBC) Count 4.33 mill/uL (4.70-6.10)
[2024-04-05 06:25] LABS: Anion Gap 11 mmol/L (10-20); BUN (Urea Nitrogen) 16 mg/dL (8.4-25.7); Calc. Creatinine Clearance 247 mL/min (70-130); Calcium 8.4 mg/dL (7.8-10.44); Carbon Dioxide 23 mmol/L (23-31); Chloride 109 mmol/L (98-107); Estimated GFR 104; Glucose 107 mg/dL (80-115); Potassium 4.2 mmol/L (3.5-5.1); Sodium 139 mmol/L (136-145)
[2024-04-05] MEDS: Loratadine 10 MG TAB PO SCH (08:29)
[2024-04-05] MEDS: Polyethylene Glycol 3350 17 GM Packet PO SCH (14:40)
[2024-04-05] MEDS ORDERED: Bisacodyl 5 MG TAB PO PRN (15:00)
[2024-04-06 06:12] LABS: #Basophils 0.04 10x3/uL (0.0-0.2); %Basophils 0.5 % (0.0-1.0); %Eosinophils 3.1 % (0.0-10.0); %Lymphocytes 27.6 % (21.0-51.0); %Monocytes 6.2 % (0.0-10.0); %Neutrophils 61.6 % (42.0-75.0); Hematocrit 40.3 % (42.0-52.0); Hemoglobin 13.1 g/dL (14.0-18.0); Mean Corpuscular HGB CONC 32.5 g/dL (32.0-36.0); Mean Corpuscular Volume 92.4 fL (78.0-98.0); Mean Platelet Volume 9.7 fL (7.4-10.4); Platelet Count 152 10x3/uL (130-400); RBC Distribution Width 14.3 % (11.5-14.5); Red Blood Cell (RBC) Count 4.36 mill/uL (4.70-6.10)
[2024-04-06 06:28] LABS: Vancomycin, Random 20.5 ug/mL (See Comment)
[2024-04-06 06:35] LABS: Anion Gap 15 mmol/L (10-20); BUN (Urea Nitrogen) 16 mg/dL (8.4-25.7); Calc. Creatinine Clearance 214 mL/min (70-130); Calcium 8.3 mg/dL (7.8-10.44); Carbon Dioxide 22 mmol/L (23-31); Chloride 107 mmol/L (98-107); Estimated GFR 100; Glucose 226 mg/dL (80-115); Magnesium 1.6 mg/dL (1.6-2.6); Potassium 3.7 mmol/L (3.5-5.1); Sodium 140 mmol/L (136-145)
[2024-04-06 12:00] VITALS: BP 131/84; TEMP 97.6
== END 2024-04-06 13:30 | disposition home or self-care (01) | DRG 872 ==
LOC: 2SW 19:34 → OBSVTOIN 20:41
PROVIDERS: ADMIT Family Medicine; ATTEND Internal Medicine
DX: A41.9 Sepsis, unspecified organism (principal); L03.311 Cellulitis of abdominal wall; Z68.42 Body mass index [BMI] 45.0-49.9, adult; I48.92 Unspecified atrial flutter; I48.20 Chronic atrial fibrillation, unspecified; I10 Essential (primary) hypertension; E66.01 Morbid (severe) obesity due to excess calories; J44.9 Chronic obstructive pulmonary disease, unspecified; F41.9 Anxiety disorder, unspecified; F32.9 Major depressive disorder, single episode, unspecified; G89.29 Other chronic pain; M54.9 Dorsalgia, unspecified; F17.210 Nicotine dependence, cigarettes, uncomplicated; L30.4 Erythema intertrigo; E83.42 Hypomagnesemia; Z79.891 Long term (current) use of opiate analgesic; Z90.49 Acquired absence of other specified parts of digestive tract; Z98.84 Bariatric surgery status
CPT/HCPCS: 36415; 80048; 80202; 83735; 85025; J1650; J3370

== ENCOUNTER 2024-07-22 11:53 | Outpatient (CLI) | payer OTHER, MEDICAID | END 2024-07-22 11:54 | disposition home or self-care (01) | LOC: CT 11:53 | PROVIDERS: ATTEND Family Medicine | DX: Z12.2 Encounter for screening for malignant neoplasm of respiratory organs (principal); F17.200 Nicotine dependence, unspecified, uncomplicated | CPT/HCPCS: 71271 ==